=== PATIENT | male | born 1940 | race Caucasian/White ===

== ENCOUNTER 2024-09-11 18:34 | Inpatient (IN) | payer MEDICARE, SELFPAY ==
[2024-09-11 18:37] VITALS: BP 167/80; PULSE 69; RESP 18; TEMP 36.9; O2SAT 96; BMI 32.8
--- NOTE | 2024-09-11 19:01 | EDNOTE_ITS ---
ED General RME/HPI General Chief complaint: Altered Mental Status Stated complaint: ALTERED Time Seen by Provider: 09/11/24 18:59 Arrival date/time: 09/11/24 18:34 CC: Altered mental status HPI called in by healthcare provider mild altered mental status for 2 to 3 weeks. EMS reports stable vital signs around but stated that the patient's living conditions were in disarray and dirty. The patient is disheveled and ill kempt but appears not in any acute distress he has no specific complaints. Informs me his primary care doctor is Dr. Saez, denies fever chills chest pain shortness of breath or difficulty breathing. Anecdotal information from the nurse upon placement from the gurney to a bed the report also states the patient fell x 1 today. Related Data Home Medications ?Medication ?Instructions ?Recorded ?Confirmed finasteride 5 mg tablet (Proscar) 5 mg PO QDAY #0 tabs 07/31/15 09/12/24 metoprolol tartrate 25 mg tablet 25 mg PO 1XD #0 tabs 07/31/15 09/12/24 tamsulosin 0.4 mg capsule (Flomax) 0.8 mg PO BID #0 caps 12/27/23 09/12/24 levothyroxine 112 mcg tablet 112 mcg PO DAILY 09/12/24 09/12/24 Allergies Allergy/AdvReac Type Severity Reaction Status Date / Time No Known Allergies Allergy Verified 09/12/24 06:32 Review of Systems Review of Systems Narrative Review of Systems: GEN: No fever, no chills, no weight loss EYES: No discharge, no visual changes, no pain HEENT: No ear pain, no congestion, no sore throat PULM: No shortness of breath, no cough, no congestion CV: No chest pain, no dyspnea on exertion, no palpitations GI: No nausea, no vomiting, no diarrhea, no pain, no constipation : No frequency, no urgency, no dysuria MUSC/SKEL: No joint pain, no back pain SKIN: No rash PSYCH: No hallucinations, no depression HEME/LYMPH: No easy bleeding or bruising tendencies NEURO: No weakness, no headache Past Medical History Past Medical History CARDIAC: Positive Hypercholesterolemia; Negative Cardiac Disorders, Congestive Heart Failure or Hypertension RESPIRATORY: Positive Asthma and Pneumonia; Negative Chronic Obstructive Pulmonary Disease (COPD) GASTROINTESTINAL: Positive Gastrointestinal Disorders GENITOURINARY: Positive Benign Prostatic Hyperplasia; Negative Renal Disease MUSCULOSKELETAL: Positive Musculoskeletal Disorders ENT: Positive Cataracts and Macular Degeneration ENDOCRINE: Positive Hypothyroidism; Negative Diabetes Mellitus Type 1 or Diabetes Mellitus Type 2 HEMATOLOGIC: Negative Sickle Cell Disease OTHER HISTORY: Positive Falls and Blood Transfusions; Negative Blood Transfusion Reaction or Anesthesia Reactions Family History FAMILY HISTORY: Positive Family Gastrointestinal Problems Surgical History SURGICAL: Positive Vascular Surgery, Eye Surgery, Abdominal Surgery and Bowel Surgery Social History SMOKING STATUS: Former smoker SECOND HAND EXPOSURE: No SUBSTANCE USE: does not use ED Exam Narrative Physical exam: [General: Ill kempt but appears not in any acute distress Head normocephalic HEENT: Eyes pupils are PERRLA EOMs are intact nose no rhinorrhea mouth pink moist membranes uvula is midline swallow symmetrical been all other subsystems of HEENT are within acceptable limits Neck is supple nontender, no JVD no edema Chest equal chest rise nontender to palpation Respiratory: Clear to auscultation no wheezes crackles or rubs CV: Rate rhythm is regular no murmurs rubs or clicks Abdomen is distended secondary to body habitus soft nontender no masses positive bowel sounds all 4 quadrants Back: No CVA tenderness no spinous process tenderness from cervical spine thoracic and lumbar spine Skin: Intact no petechiae rash induration ulceration or crepitus Extremities: Moving all extremity against resistance cap refill less than 2 seconds neurosensory intact. Nonpitting edema to both lower extremities Neuro: Awake alert oriented x2, person and place, Glascow coma 15 no focal deficits] Course Course Course Narrative: Patient has SHEREEN, but also has a bad living circumstances including a dilapidated house. EMS is filed an APS report regarding this. At the time of this dictation patient is pending a CT for a kidney stone that was seen in December 2019 for imaging. Quality Measures VTE prophylaxis Orders Category Date Time Status Patient Condition Routine Admission 09/12/24 01:45 Ordered COVID-19 Screening Questionnaire NOW Care 09/12/24 01:33 Completed Decision to Admit X1 Care 09/12/24 01:33 Completed Miscellaneous Nursing Order NOW Care 09/12/24 02:24 Active Notify provider NEEDED Care 09/12/24 01:45 Active Saline [Insert IV] NOW Care 09/11/24 20:39 Completed Straight [In and Out Catheter] X1 Care 09/11/24 22:45 Completed PT [Referral Physical Therapy] Stat Cons 09/12/24 08:31 Active Referral Physical Therapy Routine Cons 09/12/24 02:19 Active Diet Renal Diet 09/12/[address] abdomen pelvis wo con Stat Exams 09/11/24 22:[address] cervical spine wo con Stat Exams 09/11/24 20:[address] head/brain wo con Stat Exams 09/11/24 20:37 Completed US renal artery study complete Stat Exams 09/12/24 08:53 Ordered B-Type Natriuretic Peptide Stat Lab 09/11/24 19:19 Completed CBC AM DRAW Lab 09/12/24 03:40 Completed CBC Stat Lab 09/11/24 19:19 Completed Comprehensive Metabolic Panel AM DRAW Lab 09/12/24 03:40 Completed Comprehensive Metabolic Panel Stat Lab 09/11/24 19:19 Completed Drug Screen,Urine Stat Lab 09/11/24 23:07 Completed Free T4 (Free Thyroxine) Routine Lab 09/12/24 01:51 Completed LDH (Lactate Dehydrogenase) Stat Lab 09/11/24 19:19 Completed Lactic Acid [Lactate (Lactic Acid)] Stat Lab 09/12/24 03:40 Completed Lipid Panel AM DRAW Lab 09/12/24 03:40 Completed Magnesium AM DRAW Lab 09/12/24 03:40 Completed Magnesium Stat Lab 09/11/24 19:19 Completed Partial Thromboplastin Time Stat Lab 09/11/24 19:19 Completed Prothrombin Time with INR Stat Lab 09/11/24 19:19 Completed TSH [Thyroid Stimulating Hormone] Stat Lab 09/11/24 19:19 Completed Urinalysis Stat Lab 09/11/24 23:07 Completed Acetaminophen Tab [Tylenol Tab] Med 09/12/24 01:45 Active 650 mg PO Q6H PRN Finasteride [Proscar] Med 09/12/24 09:00 Active 5 mg PO QDAY Heparin Inj Med 09/12/24 09:00 Active 5,000 unit SC Q12HR Levothyroxine Sodium [Synthroid] Med 09/12/24 06:00 Active 112 mcg PO ACBR Ondansetron Inj [Zofran Inj] Med 09/12/24 01:50 Active 4 mg IV Q6H PRN Sodium Chloride 0.9% 1000 ml [Ns] 1,000 ml Med 09/12/24 01:45 Active IV 80 mls/hr Sodium Chloride 0.9% 1000 ml [Ns] 1,000 ml Med 09/11/24 20:39 Discontinued IV 999 mls/hr Tamsulosin HCl [Flomax] Med 09/12/24 09:00 Active 0.4 mg PO QDAY Code Status Routine Oth 09/12/24 01:45 Ordered Vital Signs Vital signs: Vital Signs Temperature 98.5 F 09/11/24 18:37 Pulse Rate 69 09/11/24 18:37 Respiratory Rate 18 09/11/24 18:37 Blood Pressure 167/80 H 09/11/24 18:37 Pulse Oximetry (%) 96 09/11/24 18:37 Oxygen Delivery Method Room Air 09/11/24 18:37 [facility] Patient data External records reviewed:: [facility] previous records and EMS form Clinical information provided by:: patient and EMS Social determinants that could affect healthcare access:: none Patient has the following chronic illnesses:: Hypothyroidism 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 bili elevation Interpretation Summary: AKA needs admission for further medical management. There is also problematic as patient was found in a house completely disheveled. APS report was filed by EMS. Patient needs social economist to determine if the patient needs to be placed Medications Medications considered but not ordered:: None Medication administrations:: Medication Administration History Acetaminophen (Acetaminophen 325 Mg Tablet) 650 mg PO Q6H PRN PRN Reason: Pain 1-3 or Fever >100.3 Stop: 10/12/24 01:44 Finasteride (Finasteride 5 Mg Tablet) 5 mg PO QDAY [facility] Stop: 10/12/24 08:59 Heparin Sodium (Porcine) (Heparin Sod Inj 5000 Unit/Ml Vial) 5,000 unit SC Q12HR [facility] Stop: 09/26/24 08:59 Last Admin: 09/12/24 10:37 Dose: 5,000 unit Documented By: EF Co-signed By: DO Sodium Chloride (Ns) 1,000 mls @ 80 mls/hr IV .[id number] ONE Stop: 09/12/24 14:14 Last Admin: 09/12/24 02:17 Dose: 80 mls/hr Documented By: CVL Levothyroxine Sodium (Levothyroxine Sodium 112 Mcg Tablet) 112 mcg PO ACBR [facility] Stop: 10/12/24 05:59 Last Admin: 09/12/24 10:32 Dose: Not Given Documented By: EF Non-Admin Reason: Medication Not Available Ondansetron HCl (Ondansetron Inj 2 Mg/Ml Inj 2 Ml) 4 mg IV Q6H PRN; Protocol PRN Reason: NAUSEA OR VOMITING Stop: 10/12/24 01:49 Tamsulosin HCl (Tamsulosin Hcl 0.4 Mg Capsule) 0.4 mg PO QDAY [facility] Stop: 10/12/24 08:59 Last Admin: 09/12/24 10:37 Dose: 0.4 mg Documented By: EF Discontinued Medications Sodium Chloride (Ns) 1,000 mls @ 999 mls/hr IV .Q1H1M ONE Stop: 09/11/24 21:39 Last Infusion: 09/11/24 22:18 Dose: Infused Documented By: Admin: 09/11/24 20:45 Dose: 999 mls/hr Documented By: CVL None Consultations Consultation(s) initiated? (list below): No Diagnosis Differential Diagnosis ED Complaint MDM: SHEREEN pneumonia altered mental status Most likely diagnosis given after review of the tests above:: SHEREEN deconditioned Admission Indicated Admission indicated?: indicated Explain why admission is indicated or not indicated:: Further medical management Admission Request Was there a request for admission?: No Disposition Plan Disposition Plan: Admit Medical Decision Making Differential Diagnosis Differential Diagnosis: SHEREEN pneumonia altered mental status Lab Data 09/12/24 03:40 09/12/24 03:40 Labs: Lab Results 09/11/24 09/11/24 09/12/24 Range/Units 19:19 23:07 03:40 WBC 9.7 7.0 (3.8-10.6) Thou/mm3 RBC 4.21 L 3.75 L (4.50-5.90) Miln/mm3 Hgb 13.1 L 11.5 L (13.5-16.0) g/dL Hct 38.0 L 34.3 L (41.0-53.0) % MCV 90 92 (80-100) fL MCH 31.1 30.7 (25.0-35.0) pg MCHC 34.5 33.5 (31.0-37.0) g/dl RDW Std Deviation 44.2 H 46.3 H (35.1-43.9) fL Plt Count 178 141 D (140-440) Thou/mm3 Neut % (Auto) 80 68 (37-80) % Lymph % (Auto) 10 16 (10-50) % [place] % (Auto) 9 13 H (0-12) % Eos % (Auto) 0 2 (0-10) % Baso % (Auto) 0 0 (0-2.5) % Neut # (Auto) 7.8 H 4.8 (1.8-7.7) Thou/mm3 Lymph # (Auto) 1.0 1.1 (1.0-4.8) Thou/mm3 [place] # (Auto) 0.9 H 0.9 H (0.0-0.8) Thou/mm3 Eos # (Auto) 0.0 0.2 (0.0-0.5) Thou/mm3 Baso # (Auto) 0.0 0.0 (0.0-0.2) Thou/mm3 Immature Gran # (Auto) 0.03 H 0.02 H (0.00-0.00) Thou/mm3 Absolute Nucleated RBC 0.00 0.00 (0.00-0.00) Thou/mm3 Immature Gran % 0 0 (0-0) % Nucleated RBC % 0 0 (0) /100 WBC PT 11.8 (9.0-12.2) Seconds INR 1.1 (0.9-1.3) APTT 24.6 (22.0-36.0) Seconds Sodium 139 137 (136-145) mMol/L Potassium 4.1 4.1 (3.4-5.1) mMol/L Chloride 105 107 (98-107) mMol/L Carbon Dioxide 25.8 22.2 (20.0-31.0) mMol/L Anion Gap 8 8 (7-16) BUN 39 H 32 H (9-23) mg/dL Creatinine 2.3 H 1.9 H (0.6-1.3) mg/dL Estim Creat Clear Calc 30.6 L 37.0 L (>60) mL/min eGFR 27 L 34 L (60 - ) See Note BUN/Creatinine Ratio 17 17 (12-20) Ratio Glucose 117 H 96 (74-106) mg/dL Calculated Osmolality 287 280 (275-295) Lactic Acid 0.9 (0.4-2.0) mMol/L Calcium 9.5 8.5 (8.3-10.6) mg/dL Corrected Calcium 9.5 8.8 (8.5-10.1) mg/dL Magnesium 2.2 2.1 (1.6-2.6) mg/dL Total Bilirubin 0.7 0.9 (0.3-1.2) mg/dL AST 36 H 52 H (0-34) U/L ALT 22 22 (10-49) U/L Alkaline Phosphatase 74 58 D (46-116) U/L Lactate Dehydrogenase 324 H (120-246) U/L B-Natriuretic Peptide 40 (0-100) pg/mL Total Protein 7.2 6.0 (5.7-8.2) gm/dL Albumin 4.3 3.6 D (3.4-4.8) gm/dL Globulin 2.9 2.4 (2.3-3.5) gm/dL Albumin/Globulin Ratio 1.5 1.5 (1.2-2.2) Triglycerides 70 (30-150) mg/dL Cholesterol 130 L (132-200) mg/dL LDL Cholesterol, Calc 68 (0-130) mg/dL HDL Cholesterol 48 (40-60) mg/dL Cholesterol/HDL Ratio 2.7 L (4.0-6.7) RATIO TSH 5.33 H (0.55-4.78) uIU/mL Free T4 1.38 (0.89-1.76) ng/dL Ur Collection Type Clean Catch Urine Color Yellow (Lt Yel-Yel) Urine Clarity Clear (Clear/Hazy) Urine pH 5.5 (5.0-7.0) Ur Specific [place] 1.028 (1.001-1.035) Urine Protein 1+ A (Neg - Trace) Urine Glucose (UA) Negative (Negative) Urine Ketones Negative (Negative) Urine Blood 2+ A (Negative) Urine Nitrite Negative (Negative) Urine Bilirubin Negative (Negative) Urine Urobilinogen (Auto) Negative (0.0-1.0) mg/dL Ur Leukocyte Esterase Negative (Negative) Urine RBC 1 (0-3) /hpf Urine WBC 2 (0-5) /hpf Ur Squamous Epith Cells 0 (0-5) /hpf Urine Bacteria None (None) Urine Opiates Screen Negative (Negative) Urine Fentanyl Screen Negative (Negative) Ur Barbiturates Screen Negative (Negative) U Amphetamin/Meth Scrn Negative (Negative) U Benzodiazepines Scrn Negative (Negative) U Cocaine Metab Screen Negative (Negative) U Marijuana (THC) Screen Negative (Negative) Discharge Plan Plan Patient Disposition: Admit Acute Care w/in Hospital Disposition Comment: Hospitalist to admit Dr Banks to consult Patient condition on transfer: Stable Problem List Clinical Impression: SHEREEN (acute kidney injury), AMS (altered mental status), History of endovascular stent graft for abdominal aortic aneurysm (AAA)
[2024-09-11 19:29] LABS: Basophils % (Auto) 0 % (0-2.5); Eosinophils % (Auto) 0 % (0-10); Hemoglobin 13.1 g/dL (13.5-16.0); Immature Granulocytes % (Auto) 0 % (0-0); Immature Granulocytes Auto 0.03 Thou/mm3 (0.00-0.00); Lymphocytes % (Auto) 10 % (10-50); Mean Corpuscular HGB Conc 34.5 g/dl (31.0-37.0); Mean Corpuscular Hemoglobin 31.1 pg (25.0-35.0); Mean Corpuscular Volume 90 fL (80-100); Monocytes # (Auto) 0.9 Thou/mm3 (0.0-0.8); Monocytes % (Auto) 9 % (0-12); Neutrophils # (Auto) 7.8 Thou/mm3 (1.8-7.7); Neutrophils % (Auto) 80 % (37-80); Nucleated Red Blood Cell % 0 /100 WBC (0); Platelet Count 178 Thou/mm3 (140-440); RDW Standard Deviation 44.2 fL (35.1-43.9); Red Blood Count 4.21 Miln/mm3 (4.50-5.90); White Blood Count 9.7 Thou/mm3 (3.8-10.6)
[2024-09-11 19:46] LABS: INR 1.1 (0.9-1.3); Partial Thromboplastin Time 24.6 Seconds (22.0-36.0); Prothrombin Time 11.8 Seconds (9.0-12.2)
[2024-09-11 19:50] LABS: Alanine Aminotransferase 22 U/L (10-49); Albumin, Serum 4.3 gm/dL (3.4-4.8); Albumin/Globulin Ratio 1.5 (1.2-2.2); Alkaline Phosphatase 74 U/L (46-116); Anion Gap 8 (7-16); Aspartate Amino Transferase 36 U/L (0-34); BUN/Creatinine Ratio 17 Ratio (12-20); Bilirubin,Total 0.7 mg/dL (0.3-1.2); Blood Urea Nitrogen 39 mg/dL (9-23); Calcium 9.5 mg/dL (8.3-10.6); Calcium (Corrected) 9.5 mg/dL (8.5-10.1); Carbon Dioxide 25.8 mMol/L (20.0-31.0); Chloride 105 mMol/L (98-107); Creatinine (Component) 2.3 mg/dL (0.6-1.3); Estimated Creatinine Clearance 30.6 mL/min (>60); Globulin 2.9 gm/dL (2.3-3.5); Glucose 117 mg/dL (74-106); LDH (Lactate Dehydrogenase) 324 U/L (120-246); Magnesium 2.2 mg/dL (1.6-2.6); Osmolality,Calculated 287 (275-295); Potassium 4.1 mMol/L (3.4-5.1); Sodium 139 mMol/L (136-145); Total Protein 7.2 gm/dL (5.7-8.2); eGFR 27 See Note
[2024-09-11 19:54] LABS: B-Type Natriuretic Peptide 40 pg/mL (0-100)
--- NOTE | 2024-09-11 20:20 | PC.NURSE ---
PT CAME TO ER FROM HOME BY AMBULANCE , PT LIVES ALONE, ORDER SCHEDULE CLERK CALLED AMBULANCE BECAUSE SHE SAID HE IS HAVING AMS CONDITION, EMS REPORTED PT IS GCS 15, NO C/O PAIN.NOT ON RESPIRATORY DISTRESS, PT HAS COLOSTOMY BAG.
--- NOTE | 2024-09-11 20:35 | PC.NURSE ---
PT CARE PROVIDER, POWER OF STONE OPERATOR , CAME TO SEE PT, SHE INFORMED ME THAT PT FELL TODAY AND SHE WAS SHOWING ME A CARD ABOUT PT HAVE CARDIAC PROCEDURE RECENTLY, FELICITA MCDERMOTT MADE AWARE OF INFORMATION.
--- NOTE | 2024-09-11 20:37 | XR_ITS ---
Examination: CT brain head without contrast. 2-D sagittal coronal reconstructions Date and time of exam:September 11, 2024 2149 hrs. Indications: Patient fell today with injury to the head, head pain CTDI: vol (mGy):63 DLP: (mGycm):1350 Technique: Multiple CT axial sections of the brain have been obtained, 5 mm slice thickness. Contrast has not been administered. 2-D sagittal, coronal reconstructions have been obtained Low dose protocols were performed. One or more of the following dose reduction techniques were used; automated exposure control, adjustment of the mA and/or KV according to patient size, use of iterative reconstruction technique. Findings: Patient motion significantly degrades scan image quality Mild ventricular enlargement No mass effect No gross hemorrhage noted Cranial vault grossly intact Impression: Limited study secondary to patient motion No hemorrhage or mass effect noted
--- NOTE | 2024-09-11 20:37 | XR_ITS ---
Examination: CT cervical spine without contrast 2-D sagittal reconstructions 2-D coronal reconstructions 3-D reconstructions. Exam date and time:September 11, 2024 2149 hrs. Indications: Patient fell today with injury to the neck, neck pain CTDI:vol (mGy) 8.44 DLP: (mGycm) 179 Technique: Multiple 2 mm axial sections of the cervical spine have been obtained. The coronal and sagittal reconstructions have been obtained. 3-D reconstructions have been obtained. Low dose protocols were performed. One or more of the following dose reduction techniques were used; automated exposure control, adjustment of the mA and/or KV according to patient size, use of iterative reconstruction technique. Findings: The entire study is severely degraded by patient motion No gross fracture noted Impression: The entire study is severely degraded by patient motion No gross fracture noted Repeat this study as clinically warranted
[2024-09-11] MEDS: SODIUM CHLORIDE 0.9% 1000 ML 1,000 ML 999 ML IV (20:45)
[2024-09-11 21:14] LABS: Thyroid Stimulating Hormone 5.33 uIU/mL (0.55-4.78)
--- NOTE | 2024-09-11 22:12 | XR_ITS ---
Examination: CT abdomen and pelvis without contrast. Coronal 3-D reconstructions. Sagittal 2-D reconstructions. Date and time of exam:September 11, 2024 1044 hrs. Comparison November 09, 2023 Indications: Left flank pain today, history kidney stones CTDI: vol (mGy): 12 DLP: (mGycm): 685 Technique: Axial images of the abdomen have been obtained, 3 mm slice thickness Intravenous contrast material has not been administered. Low dose protocols were performed. One or more of the following dose reduction techniques were used; automated exposure control, adjustment of the mA and/or KV according to patient size, use of iterative reconstruction technique. Findings: Small cyst right lobe liver Contracted gallbladder Spleen not enlarged No pancreatic mass Considerable patient motion obscures scan detail Aorto iliac endoluminal stent with 6.3 cm infrarenal abdominal aortic aneurysm IVC filter No renal or ureteral calculi, no hydronephrosis Left colostomy with herniation of small bowel loops at the colostomy site, the small bowel loops partially incarcerated with dilated small bowel Urinary bladder intact No bladder calculi Transverse prostate dimension 4.3 cm Severe osteopenia with severe osteoporotic compression T11 and mild compression L1 Impression: No renal or ureteral calculi, no hydronephrosis Aorta iliac endoluminal stent with 6.3 cm infrarenal abdominal aortic aneurysm Left colostomy, with herniation of small bowel loops through the colostomy defect, small bowel loops appear partially incarcerated with early small bowel obstruction Consider Gastrografin small bowel series follow-up Impression: Subacute severe compression fracture T11 vertebral body
--- NOTE | 2024-09-11 22:47 | EDNOTE_ITS ---
Emergency Room Addendum <Eun Hopper MD - Last Filed: 09/12/24 05:31> Addendum Narrative: 2300: Care assumed from Hamilton Jason NP. Past medical, surgical, social and family history reviewed. Vitals and home medications reviewed. Results and treatment plan discussed. I will assume the care of the patient at this time and will follow the patient, pending reports, labs and final disposition. 0100: Patient re-examined. Physical exam done by me, patient's abdomen is soft, brown stool coming out of colostomy. He has no abdominal distention. No tenderness. He is answering questions. He is laying down comfortable. 0130: Dr. Muse made aware of the patient?s HPI, PMHx, lab and/or radiology results. Treatment plan was discussed. He states he does not believe there is an obstruction as there is stool coming out of the colostomy, brown in color. He is agreeable to re-consult in the morning. 0133: Resident made aware of the patient?s HPI, PMHx, lab and/or radiology results. Treatment plan was discussed. Will admit for further evaluation and management. Accepts patient for admission. 0310: Power of Wallpaperer for this patient requests the patient be transfered to [facility]. Dr. Torres (Vascular Surgery did his AAA repair Jul 28 @[facility]. Mr. 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 Patient's labs significant for acute kidney injury. Patient was given 1 L of fluids in the ED. ED consulted internal medicine team for recommendation on further management. Patient would benefit from admission acute kidney injury and possible placement due to patient's gradual deterioration. Patient lives alone at home, and was found unkept and disheveled. Prior to possible admission, spoke with patient's POA, Victoria Hayes, , and felt comfortable about reaching out to patient's vascular surgeon at [facility], Dr. Lizett Huang prior to admission in case patient needs transfer. Tried reaching Dr. Huang, vascular surgeon at [phone], however currently not on-call, and unable to reach any other provider at this time. Victoria agreed to reach out provider herself around 7 AM prior to last admission to our hospital. Updated the current course of plan to Dr. Hopper, ED physician, and agreed. Currently, patient is in the ED for now. CT abdomen and pelvis without contrast. Coronal 3-D reconstructions. Sagittal 2-D reconstructions. 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 - Last Filed: 09/12/24 05:16> Addendum Narrative: 2300: Care assumed from Hamilton Jason NP. Past medical, surgical, social and family history reviewed. Vitals and home medications reviewed. Results and treatment plan discussed. I will assume the care of the patient at this time and will follow the patient, pending reports, labs and final disposition. 0100: Patient re-examined. Physical exam done by me, patient's abdomen is soft, brown stool coming out of colostomy. He has no abdominal distention. No tenderness. He is answering questions. He is laying down comfortable. 0130: Dr. Muse made aware of the patient?s HPI, PMHx, lab and/or radiology results. Treatment plan was discussed. He states he does not believe there is an obstruction as there is stool coming out of the colostomy, brown in color. He is agreeable to re-consult in the morning. 0133: Resident made aware of the patient?s HPI, PMHx, lab and/or radiology results. Treatment plan was discussed. Will admit for further evaluation and management. Accepts patient for admission. 0310: Power of Wallpaperer for this patient requests the patient be transfered to [facility]. Dr. Torres (Vascular Surgery did his AAA repair Jul 28 @[facility]. 0600: Care signed out to oncoming day shift provider. Past medical, surgical, social and family history reviewed. Vitals and home medications reviewed. Results and treatment plan discussed. They will assume the care of the patient at this time and will follow the patient, pending possible transfer to [facility]. Mr. Palencia is an 84-year-old male with past medical history significant for hypothyroidism, BPH, (cancer s/p resection and ileostomy, CKD, abdominal aortic aneurysm status post stent in July at [facility] who presented to the ED today with altered mental status. Patient's labs significant for acute kidney injury. Patient was given 1 L of fluids in the ED. ED consulted internal medicine team for recommendation on further management. Patient would benefit from admission acute kidney injury and possible placement due to patient's gradual deterioration. Patient lives alone at home, and was found unkept and disheveled. Prior to possible admission, spoke with patient's POA, Victoria Freddy, , and felt comfortable about reaching out to patient's vascular surgeon at [facility], Dr. Lizett Huang prior to admission in case patient needs transfer. Tried reaching Dr. Huang, vascular surgeon at [phone], however currently not on-call, and unable to reach any other provider at this time. Victoria agreed to reach out provider herself around 7 AM prior to last admission to our hospital. Updated the current course of plan to Dr. Hopper, ED physician, and agreed. Currently, patient is in the ED for now. CT abdomen and pelvis without contrast. Coronal 3-D reconstructions. Sagittal 2-D reconstructions. 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 Scribe Attestation: I, Rubén Watts, am scribing for and in the presence of Dr. Chavarria. Provider Notation: Although this document has been carefully reviewed, there may still be some phonetic and other typographical errors. These errors are purely grammatical due to imperfections in the software program and should not be construed in any way to compromise the substance of the patient's medical care during this visit.
[2024-09-11 23:23] LABS: Collection Type, Urine Clean Catch; Squamous Epithelial Cell,Urine 0 /hpf (0-5)
[2024-09-11 23:29] LABS: Bilirubin,Urine Negative (Negative); Blood,Urine 2+ (Negative); Clarity,Urine Clear (Clear/Hazy); Color,Urine Yellow (Lt Yel-Yel); Glucose, Urine Negative (Negative); Ketones,Urine Negative (Negative); Leukocyte Esterase,Urine Negative (Negative); Nitrite,Urine Negative (Negative); PH,Urine 5.5 (5.0-7.0); Protein,Urine 1+ (Neg - Trace); RBC,Urine 1 /hpf (0-3); Specific Gravity,Urine 1.028 (1.001-1.035); Urobilinogen,Urine Negative mg/dL (0.0-1.0); WBC,Urine 2 /hpf (0-5)
[2024-09-11 23:36] LABS: Amphetamine/Methamp Scrn,U Negative (Negative); Barbiturate Screen,Urine Negative (Negative); Benzodiazepines Screen,Urine Negative (Negative); Benzoylecgonine Screen, Ur Negative (Negative); Fentanyl Screen,Urine Negative (Negative); Opiate Screen,Urine Negative (Negative); THC Screen,Urine Negative (Negative)
[2024-09-11 23:50] VITALS: BP 121/57; PULSE 56; RESP 16; TEMP 37.1; O2SAT 96
[2024-09-12] VITALS (11 sets, daily range): BP systolic 113–147; BP diastolic 58–85; PULSE 41–60; RESP 14–18; TEMP 36.2–37.2; O2SAT 94–98; BMI 30.2; BMI 32.8
--- NOTE | 2024-09-12 02:08 | PD.RESHP ---
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 Per EMS reports, the patient had stable vital signs but living conditions were suboptimal and he was unkept and disheveled but was in no acute distress and had no complaints.. He denied any fever, chills, chest pain, shortness of breath, palpitation, abdominal pain, dysuria. Per chart review, patient had an obstructive stone and December and was seen by Dr. Pacheco who recommended PCNL and stone fragmentation. ED course: In the ED, the patient was afebrile and normotensive, saturating 95% on room air. Labs showed WBC 9.7 Hgb 13.1 PLT 178 NA 130 9K4.1 CL 105 bicarb 25.8 BUN 39 creatinine 2.3 with a GFR 27 glucose 117 TSH 5.33. UA showed 1+ protein and 2+ blood, otherwise unremarkable and U-Tox was negative. Head CT was done which was negative and CT abdomen was done which showed no ureteral/renal calculi but showed small bowel loops that appear partially incarcerated. The patient is given 1 L of fluid in the ED and a APS was contacted for possible placement and is being admitted for management of SHEREEN on CKD. Review of Systems Review of Systems Narrative Review of Systems: GENERAL: Denies fevers/chills or diaphoresis. HEENT: Denies headache or visual/hearing changes. Denies nasal discharge. NEURO: Denies unusual weakness or difficulty speaking. CARDIO: Denies chest pain or palpitations. PULM: Denies SOB, coughing, or wheezing. GI: Denies abdominal pain, N/V/C/D/reflux/gas, bright red blood per rectum or melena. Reports having BMs. URO: Denies burning/itching/pain/urinary changes. MSK/EXT/SKIN: Denies joint/skeletal/muscle pain, issues/changes in upper or lower extremities, itchiness, or superficial pain. PSYCH: Cooperative, pleasant mood & affect. 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 Eyes open, symmetrical, & clear CARDIO: No chest pain on palpation. Heart RRR, no obvious murmurs PULM: No noted coughing/dyspnea. Lungs CTA B/L GI: Abdomen soft, nondistended, palpable bowel loops, no pain on palpation. Colostomy bag inspected, good output, no leak. SKIN/MSK/EXT: Bilateral pitting edema 2+ Results: Labs 09/11/24 19:19 09/11/24 19:19 Labs: Short CBC 09/11/24 Range/Units 19:19 WBC 9.7 (3.8-10.6) Thou/mm3 Hgb 13.1 L (13.5-16.0) g/dL Hct 38.0 L (41.0-53.0) % Plt Count 178 (140-440) Thou/mm3 BMP 09/11/24 19:19 Sodium 139 Potassium 4.1 Chloride 105 Carbon Dioxide 25.8 BUN 39 H Creatinine 2.3 H Glucose 117 H Calcium 9.5 Liver Function 09/11/24 Range/Units 19:19 Total Bilirubin 0.7 (0.3-1.2) mg/dL AST 36 H (0-34) U/L ALT 22 (10-49) U/L Alkaline Phosphatase 74 (46-116) U/L Albumin 4.3 (3.4-4.8) gm/dL Urine 09/11/24 Range/Units 23:07 Urine Color Yellow (Lt Yel-Yel) Urine Clarity Clear (Clear/Hazy) Urine pH 5.5 (5.0-7.0) Ur Specific [place] 1.028 (1.001-1.035) Urine Protein 1+ A (Neg - Trace) Urine Glucose (UA) Negative (Negative) Quality Measures Quality Measures VTE prophylaxis Advance care planning discussed with:: patient Medications Home Medications and Allergies Home Medications ?Medication ?Instructions ?Recorded ?Confirmed ?Type Levothyroxine * (SYNTHROID *) 112 mcg PO QDAY #0 tabs 07/31/15 12/27/23 History finasteride 5 mg tablet (Proscar) 5 mg PO QDAY #0 tabs 07/31/15 12/27/23 History metoprolol tartrate 25 mg tablet 25 mg PO 1XD #0 tabs 07/31/15 12/27/23 History tamsulosin 0.4 mg capsule (Flomax) 0.8 mg PO QDAY #0 caps 12/27/23 12/27/23 History Allergies Allergy/AdvReac Type Severity Reaction Status Date / Time No Known Allergies Allergy Unverified 12/27/23 13:34 Visit Medications Acetaminophen (Acetaminophen 325 Mg Tablet) 650 mg PO Q6H PRN PRN Reason: Pain 1-3 or Fever >100.3 Stop: 10/12/24 01:44 Heparin Sodium (Porcine) (Heparin Sod Inj 5000 Unit/Ml Vial) 5,000 unit SC Q12HR RAUDEL Stop: 09/26/24 08:59 Sodium Chloride (Ns) 1,000 mls @ 80 mls/hr IV .[id number] ONE Stop: 09/12/24 14:14 Ondansetron HCl (Ondansetron Inj 2 Mg/Ml Inj 2 Ml) 4 mg IV Q6H PRN; Protocol PRN Reason: NAUSEA OR VOMITING Stop: 10/12/24 01:49 Discontinued Medications Sodium Chloride (Ns) 1,000 mls @ 999 mls/hr IV .[id number] ONE Stop: 09/11/24 21:39 Last Infusion: 09/11/24 22:18 Dose: Infused Assessment & Plan Assessment Summary: The patient is an 84-year-old male with a past medical history of hypothyroidism, BPH, 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 #Acute kidney injury #Acute on chronic kidney disease The patient was Biba to the ED when his neighbors was said to have noticed that he was altered for the past 2 to 3 weeks and electively demonstrated today, concerned that he might fall. Patient denied any complaints-fever, chills, abdominal pain, nausea, vomiting, diarrhea, chest pain, cough or palpitations Admitting labs in the ED showed BUN 39 creatinine 2.3, baseline about 1.6-1.8 eGFR- 27 He does mention that he has had decreased oral intake over the past couple weeks. In the ED, he received 1L bous of NS Plan: -Maintenance fluid IV NS @ 80cc/hr -Avoid nephrotoxic medications -Renally dose all medications -Continue monitoring CMP #History of unspecified intestinal cancer (possible colon) #S/P resection and ileostomy The patient has a history of cancer status post resection and ileostomy and currently has a colostomy bag. On admission, he denies abdominal pain, nausea or vomiting. Examination of colostomy bag shows good output, no leakage. CT abdomen showed some small bowel loops that appear partially incarcerated, but patient is asymptomatic. Gen Surgeon Dr Muse was contacted, no current interventions necessary. Plan: -Stable condition, continue to monitor -Consult surgery if patient becomes symtomatic #Hx of hypothyrodisim The patient has a history of hypothyroidism and is on levothyroxine 112mcg TSH on admission- 5.33 Plan: -Free T4 -Continue levothyroxine #History of BPH Patient is on finasteride 5mg and tamsulosin 0.4mg daily Plan: -Continue home meds Health maintenance: Dispo: MedSurg, requiring physical therapy and social services coordinator Diet: Renal DVT: SC Heparin Alvarez: None Lines: Peripheral Med Rec: Pending, f/u PT: Ordered Code: Full Case was discussed with attending physician, Dr Osmar Osorio MD PGY-1
[2024-09-12] MEDS: SODIUM CHLORIDE 0.9% 1000 ML 1,000 ML 80 ML IV (02:17)
[2024-09-12 02:53] LABS: Free T4 (Free Thyroxine) 1.38 ng/dL (0.89-1.76)
--- NOTE | 2024-09-12 03:37 | PC.NURSE ---
0324 CONTACTED [facility] AT [phone] SPOKE WITH [facility] PT PKT FAXED TO [phone]. PT REFERENCE NUMBER [id number]. PER RAUL [facility] RECEIVED CALL FROM KAREN STATING SHE WANTED DR RICH TO ACCEPT PT TO [facility]. PER [facility] HE EXPLAINED TO KAREN THAT IF PT WAS BEING ADMITTED TO [facility] THAN TRANSFERRING PT WOULD BE A LATERAL TRANSFER AND PT COULD BE LIABLE FOR TRANSPORTATION COSTS. DR STANLEY IS NOT PENSION ADMINISTRATOR AT THIS TIME.
[2024-09-12 03:44] LABS: Lactate (Lactic Acid) 0.9 mMol/L (0.4-2.0)
[2024-09-12 03:45] LABS: Basophils % (Auto) 0 % (0-2.5); Eosinophils # (Auto) 0.2 Thou/mm3 (0.0-0.5); Eosinophils % (Auto) 2 % (0-10); Hematocrit 34.3 % (41.0-53.0); Hemoglobin 11.5 g/dL (13.5-16.0); Immature Granulocytes % (Auto) 0 % (0-0); Immature Granulocytes Auto 0.02 Thou/mm3 (0.00-0.00); Lymphocytes # (Auto) 1.1 Thou/mm3 (1.0-4.8); Lymphocytes % (Auto) 16 % (10-50); Mean Corpuscular HGB Conc 33.5 g/dl (31.0-37.0); Mean Corpuscular Hemoglobin 30.7 pg (25.0-35.0); Mean Corpuscular Volume 92 fL (80-100); Monocytes # (Auto) 0.9 Thou/mm3 (0.0-0.8); Monocytes % (Auto) 13 % (0-12); Neutrophils # (Auto) 4.8 Thou/mm3 (1.8-7.7); Neutrophils % (Auto) 68 % (37-80); Nucleated Red Blood Cell % 0 /100 WBC (0); Platelet Count 141 Thou/mm3 (140-440); RDW Standard Deviation 46.3 fL (35.1-43.9); Red Blood Count 3.75 Miln/mm3 (4.50-5.90)
--- NOTE | 2024-09-12 03:48 | ESCONSULT_ITS ---
<Statement entered by Alina Briones MD - 09/12/24 04:45> Mr. Palencia is an 84-year-old male with past medical history significant for hypothyroidism, BPH, (cancer s/p resection and ileostomy, CKD, abdominal aortic aneurysm status post stent in July at [facility] who presented to the ED today with altered mental status. Patient's labs significant for acute kidney injury. Patient was given 1 L of fluids in the ED. ED consulted internal medicine team for recommendation on further management. Patient would benefit from admission acute kidney injury and possible placement due to patient's gradual deterioration. Patient lives alone at home, and was found unkept and disheveled. Prior to possible admission, spoke with patient's POA, Victoriajonas Hayes, , and felt comfortable about reaching out to patient's vascular surgeon at [facility], Dr. Lizett Huang prior to admission in case patient needs transfer. Tried reaching Dr. Huang, vascular surgeon at [phone], however currently not on-call, and unable to reach any other provider at this time. Victoria agreed to reach out provider herself around 7 AM prior to last admission to our hospital. Updated the current course of plan to Dr. Hopper, ED physician, and agreed. Currently, patient is in the ED for now. I discussed with and supervised the internal control analyst physician who took care of this patient. I personally saw and examined the patient and discussed the assessment and plan with the entire medicine team, including my attending , I agree with most of the assessment and plan as documented below Alina Briones M.D. 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 Per EMS reports, the patient had stable vital signs but living conditions were suboptimal and he was unkept and disheveled but was in no acute distress and had no complaints.. He denied any fever, chills, chest pain, shortness of breath, palpitation, abdominal pain, dysuria. Per chart review, patient had an obstructive stone and December and was seen by Dr. Pacheco who recommended PCNL and stone fragmentation. ED course: In the ED, the patient was afebrile and normotensive, saturating 95% on room air. Labs showed WBC 9.7 Hgb 13.1 PLT 178 NA 130 9K4.1 CL 105 bicarb 25.8 BUN 39 creatinine 2.3 with a GFR 27 glucose 117 TSH 5.33. UA showed 1+ protein and 2+ blood, otherwise unremarkable and U-Tox was negative. Head CT was done which was negative and CT abdomen was done which showed no ureteral/renal calculi but showed small bowel loops that appear partially incarcerated. The patient is given 1 L of fluid in the ED and a APS was contacted for possible placement and internal medicine team consulted for management of SHEREEN on CKD. cc:: cc: Review of Systems Review of Systems Narrative Review of Systems: GENERAL: Denies fevers/chills or diaphoresis. HEENT: Denies headache or visual/hearing changes. Denies nasal discharge. NEURO: Denies unusual weakness or difficulty speaking. CARDIO: Denies chest pain or palpitations. PULM: Denies SOB, coughing, or wheezing. GI: Denies abdominal pain, N/V/C/D/reflux/gas, bright red blood per rectum or melena. Reports having BMs. URO: Denies burning/itching/pain/urinary changes. MSK/EXT/SKIN: Denies joint/skeletal/muscle pain, issues/changes in upper or lower extremities, itchiness, or superficial pain. PSYCH: Cooperative, pleasant mood & affect. Exam Vital Signs Temp Pulse Resp BP Pulse Ox O2 Del Method 98.9 F 52 L 17 113/70 97 Room Air 09/12/24 02:21 09/12/24 02:21 09/12/24 02:21 09/12/24 02:21 09/12/24 02:21 09/12/24 02:21 Narrative Exam GENERAL: AAOX3, drowsy but not confused NEURO: LOCOMOTIVE MECHANIC APPRENTICE grossly intact, moves extremities x4 HEENT: Moist mucosa. Eyes open, symmetrical, & clear CARDIO: No chest pain on palpation. Heart RRR, no obvious murmurs PULM: No noted coughing/dyspnea. Lungs CTA B/L GI: Abdomen soft, nondistended, palpable bowel loops, no pain on palpation. Colostomy bag inspected, good output, no leak. SKIN/MSK/EXT: Bilateral pitting edema 2+ Results Labs 09/12/24 03:40 09/12/24 03:40 Labs: Short CBC 09/11/24 09/12/24 Range/Units 19:19 03:40 WBC 9.7 7.0 (3.8-10.6) Thou/mm3 Hgb 13.1 L 11.5 L (13.5-16.0) g/dL Hct 38.0 L 34.3 L (41.0-53.0) % Plt Count 178 141 D (140-440) Thou/mm3 BMP 09/11/24 19:19 Sodium 139 Potassium 4.1 Chloride 105 Carbon Dioxide 25.8 BUN 39 H Creatinine 2.3 H Glucose 117 H Calcium 9.5 Liver Function 09/11/24 Range/Units 19:19 Total Bilirubin 0.7 (0.3-1.2) mg/dL AST 36 H (0-34) U/L ALT 22 (10-49) U/L Alkaline Phosphatase 74 (46-116) U/L Albumin 4.3 (3.4-4.8) gm/dL Urine 09/11/24 Range/Units 23:07 Urine Color Yellow (Lt Yel-Yel) Urine Clarity Clear (Clear/Hazy) Urine pH 5.5 (5.0-7.0) Ur Specific [place] 1.028 (1.001-1.035) Urine Protein 1+ A (Neg - Trace) Urine Glucose (UA) Negative (Negative) Quality Measures Quality Measures VTE prophylaxis Advance care planning discussed with:: patient and other Medications Home Medications and Allergies Home Medications ?Medication ?Instructions ?Recorded ?Confirmed ?Type finasteride 5 mg tablet (Proscar) 5 mg PO QDAY #0 tabs 07/31/15 09/12/24 History metoprolol tartrate 25 mg tablet 25 mg PO 1XD #0 tabs 07/31/15 09/12/24 History tamsulosin 0.4 mg capsule (Flomax) 0.8 mg PO BID #0 caps 12/27/23 09/12/24 History levothyroxine 112 mcg tablet 112 mcg PO DAILY 09/12/24 09/12/24 History Allergies Allergy/AdvReac Type Severity Reaction Status Date / Time No Known Allergies Allergy Verified 09/12/24 06:32 Visit Medications Acetaminophen (Acetaminophen 325 Mg Tablet) 650 mg PO Q6H PRN PRN Reason: Pain 1-3 or Fever >100.3 Stop: 10/12/24 01:44 Finasteride (Finasteride 5 Mg Tablet) 5 mg PO QDAY [facility] Stop: 10/12/24 08:59 Heparin Sodium (Porcine) (Heparin Sod Inj 5000 Unit/Ml Vial) 5,000 unit SC Q12HR RAUDEL Stop: 09/26/24 08:59 Sodium Chloride (Ns) 1,000 mls @ 80 mls/hr IV .[id number] ONE Stop: 09/12/24 14:14 Last Admin: 09/12/24 02:17 Dose: 80 mls/hr Levothyroxine Sodium (Levothyroxine Sodium 112 Mcg Tablet) 112 mcg PO ACBR [facility] Stop: 10/12/24 05:59 Ondansetron HCl (Ondansetron Inj 2 Mg/Ml Inj 2 Ml) 4 mg IV Q6H PRN; Protocol PRN Reason: NAUSEA OR VOMITING Stop: 10/12/24 01:49 Tamsulosin HCl (Tamsulosin Hcl 0.4 Mg Capsule) 0.4 mg PO QDAY [facility] Stop: 10/12/24 08:59 Discontinued Medications Sodium Chloride (Ns) 1,000 mls @ 999 mls/hr IV .Q1H1M ONE Stop: 09/11/24 21:39 Last Infusion: 09/11/24 22:18 Dose: Infused Assessment & Plan Plan Summary: The patient is an 84-year-old male with a past medical history of hypothyroidism, BPH, 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 #Acute kidney injury #Acute on chronic kidney disease The patient was Biba to the ED when his neighbors was said to have noticed that he was altered for the past 2 to 3 weeks and electively demonstrated today, concerned that he might fall. Patient denied any complaints-fever, chills, abdominal pain, nausea, vomiting, diarrhea, chest pain, cough or palpitations Admitting labs in the ED showed BUN 39 creatinine 2.3, baseline about 1.6-1.8 eGFR- 27 He does mention that he has had decreased oral intake over the past couple weeks. In the ED, he received 1L bous of NS Plan: -Maintenance fluid IV NS @ 80cc/hr -Avoid nephrotoxic medications -Renally dose all medications -Continue monitoring CMP #History of unspecified intestinal cancer (possible colon) #S/P resection and ileostomy The patient has a history of cancer status post resection and ileostomy and currently has a colostomy bag. On admission, he denies abdominal pain, nausea or vomiting. Examination of colostomy bag shows good output, no leakage. CT abdomen showed some small bowel loops that appear partially incarcerated, but patient is asymptomatic. Gen Surgeon Dr Muse was contacted, no current interventions necessary. Plan: -Stable condition, continue to monitor -Consult surgery if patient becomes symtomatic #Hx of abdominal aorta aneurysm s/p stent The patient has a history of infrarenal abdominal aorta aneurysm and has an endoluminal stent CTAP shows stable aneurysm Plan: -No current intervention, stable #Hx of hypothyrodism The patient has a history of hypothyroidism and is on levothyroxine 112mcg TSH on admission- 5.33 Plan: -Free T4 -Continue levothyroxine #History of BPH Patient is on finasteride 5mg and tamsulosin 0.4mg daily Plan: -Continue home meds Health maintenance: Dispo: Pending admission following POA approval Diet: Renal DVT: SC Heparin Alvarez: None Lines: Peripheral Med Rec: Pending, f/u PT: Ordered Code: Full Case was discussed with senior resident Dr Briones PGY-2 and attending physician, Dr Osmar Osorio MD PGY-1 Attending Provider Attestation/Addendum I discussed with and supervised the resident physician who took care of this patient. I agree with the assessment and plan as above. 84-year-old male patient with history of bowel cancer, BPH, abdominal aortic aneurysm status post endovascular graft in July. The patient was brought in because of altered mentation. Patient was noted to have elevated BUN and creatinine. He was given IV fluids for SHEREEN. Of note he also is bradycardic. He takes metoprolol at home. Metoprolol will be held temporarily and until further evaluation. The patient is not hypotensive. There is no report of fall or head trauma patient is waiting for possible transfer to [facility]. Will continue to monitor in ER. Discussed plan with housestaff
[2024-09-12 04:16] LABS: Alanine Aminotransferase 22 U/L (10-49); Albumin, Serum 3.6 gm/dL (3.4-4.8); Albumin/Globulin Ratio 1.5 (1.2-2.2); Alkaline Phosphatase 58 U/L (46-116); Anion Gap 8 (7-16); Aspartate Amino Transferase 52 U/L (0-34); BUN/Creatinine Ratio 17 Ratio (12-20); Bilirubin,Total 0.9 mg/dL (0.3-1.2); Blood Urea Nitrogen 32 mg/dL (9-23); Calcium 8.5 mg/dL (8.3-10.6); Calcium (Corrected) 8.8 mg/dL (8.5-10.1); Carbon Dioxide 22.2 mMol/L (20.0-31.0); Cardiac Risk Estimate 2.7 RATIO (4.0-6.7); Chloride 107 mMol/L (98-107); Cholesterol 130 mg/dL (132-200); Creatinine (Component) 1.9 mg/dL (0.6-1.3); Globulin 2.4 gm/dL (2.3-3.5); Glucose 96 mg/dL (74-106); HDL Cholesterol 48 mg/dL (40-60); LDL Cholesterol,Calculated 68 mg/dL (0-130); Magnesium 2.1 mg/dL (1.6-2.6); Osmolality,Calculated 280 (275-295); Potassium 4.1 mMol/L (3.4-5.1); Sodium 137 mMol/L (136-145); Triglycerides 70 mg/dL (30-150); eGFR 34 See Note
--- NOTE | 2024-09-12 07:18 | PD.EDADDENDU ---
Emergency Room Addendum <Lucretia Tiwari - Last Filed: 09/12/24 08:42> Addendum Narrative: 0600: Care assumed from Dr. Hopper, the previous shift emergency physician. Past medical, surgical, social and family history reviewed. Vitals and home medications reviewed. I will assume the care of the patient at this time, pending possible transfer. Please refer to the emergency department record for history and examination from initial visit.? Nursing notes reviewed by me. Vital signs reviewed by me. [facility] records reviewed by me. 0800: I had a long discussion with the patient. 0815: I had a long 20 minute discussion with the patients power of director product development and our manager social work Nikki. 0835: I spoke with Dr. Banks. Discussed patients PMHx, HPI, ED course, exam findings, labs, and radiology results. She agrees to consult. 0840: I spoke with resident Dr. Diez working with Dr. Christina. Discussed patients PMHx, HPI, ED course, exam findings, labs, and radiology results. The hospitalist agree to accept the patient for admission. jmk>>>>>>>>>> patient is a 84-year-old gentleman who was signed out to me at 0600 hrs. as some with altered mental status who is got worsening BUN/creatinine and is postop 3 to 4 weeks from a stent for an aortic aneurysm in the [place] area. Patient is having no abdominal pain. Evidently is not been drinking well according to a call to the power of director product development Victoria as documented above. At 0800 hrs. the patient is alert awake he states he has no concerns and that he has no problems staying at this facility although evidently had some issues with his previous primary care doctor is now transferred to Dr. Loza. This patient was to be admitted by the primary care doctor but the power of director product development called up stating that she wanted the patient transferred back to the hospital did the surgery since there was some worsening of the renal function. Noted after IV fluids the creatinine and BUN have slightly improved. I am presuming they will continue to prove. Patient has no abdominal pain he has no evidence of vascular compromise in his lower extremities. He has no fever he does not appear to be septic Note the urine specific gravity is slightly on the dry side. At this time I recontacted the primary care doctor who is Dr. Banks and will admit the patient for further hydration and may require placement as patient has some issues with caring for himself for the power of director product development Victoria note I spent approximately 45 minutes on this patient talking with manager social the arnel of director product development and Dr. banks. Noticed labs were reviewed scan reports with no acute finding noted. <Jaspreet Harris MD - Last Filed: 09/12/24 08:44> Addendum Narrative: 0600: Care assumed from Dr. Hopper, the previous shift emergency physician. Past medical, surgical, social and family history reviewed. Vitals and home medications reviewed. I will assume the care of the patient at this time, pending possible transfer. Please refer to the emergency department record for history and examination from initial visit.? Nursing notes reviewed by me. Vital signs reviewed by me. [facility] records reviewed by me. 0800: I had a long discussion with the patient. 0815: I had a long 20 minute discussion with the patients power of director product development and our manager social work Nikki. 0835: I spoke with Dr. Banks. Discussed patients PMHx, HPI, ED course, exam findings, labs, and radiology results. She agrees to consult. 0840: I spoke with resident Dr. Diez working with Dr. Christina. Discussed patients PMHx, HPI, ED course, exam findings, labs, and radiology results. The hospitalist agree to accept the patient for admission. jmk>>>>>>>>>> patient is a 84-year-old gentleman who was signed out to me at 0600 hrs. as some with altered mental status who is got worsening BUN/creatinine and is postop 3 to 4 weeks from a stent for an aortic aneurysm in the [place] area. Patient is having no abdominal pain. Evidently is not been drinking well according to a call to the power of director product development Lori as documented above. At 0800 hrs. the patient is alert awake he states he has no concerns and that he has no problems staying at this facility although evidently had some issues with his previous primary care doctor is now transferred to Dr. Loza. This patient was to be admitted by the primary care doctor but the power of director product development called up stating that she wanted the patient transferred back to the hospital did the surgery since there was some worsening of the renal function. Noted after IV fluids the creatinine and BUN have slightly improved. I am presuming they will continue to prove. Patient has no abdominal pain he has no evidence of vascular compromise in his lower extremities. He has no fever he does not appear to be septic Note the urine specific gravity is slightly on the dry side. Initially this patient was admitted to the resident service last night but that was canceled and then I was informed that the patient's new doctor might be Dr Banks 0840 hrs. I recontacted the primary care doctor who is Dr. Banks who stated she will consult and the resident was recalled Dr. Diez and they will admit the patient for further hydration and may require placement as patient has some issues with caring for himself for the power of director product development Victoria note I spent approximately 45 minutes on this patient talking with manager social the power of director product development and Dr. banks. Noticed labs were reviewed scan reports with no acute finding noted.
--- NOTE | 2024-09-12 08:03 | PC.CC ---
Yecenia ABDUL was consulted by KARTHIK Forte regarding patient's POA Victoria Bragar wanting patient to be transferred to [facility]. ASW and RN made contact with patient introduced self, role, and situation. Patient presented as alert and oriented to self, location, and situation. Patient was made aware that a medical transfer is not needed at this time and if he were transferred it would be a cost out of pocket. Patient stated he is okay with being admitted to [facility]. ASW made contact with Victoria Hayes who is on the phone with patient's medical treatment and requested a call back.
--- NOTE | 2024-09-12 08:21 | PC.CC ---
Yecenia ABDUL and Dr. Harris made contact with KAREN Hayes and informed her that the patient can be medically admitted which she agreed to. She would like for the patient to go to SNF upon being discharge.
--- NOTE | 2024-09-12 08:47 | PC.CM ---
0192 charge nurse informed me that transfer is cancelled and pt. is being admitted. Charge nurse also informed me that she is also warehouse distribution specialist with [facility] to inform that transfer is canceled. 0514 spoke to charge nurse pt might need possible transfer. It the pt friend/power of [place] attorney requesting the pt to be transferred to [facility] where pt had AAA done last month. Per charge nurse, [facility] was contacted by web manager.
--- NOTE | 2024-09-12 08:50 | PC.CC ---
Patient is a 84 year-old male who presented to the hospital for AMS ASWYecenia made [id number] contact with patient. ASW introduced self, role, and reason for visit. Patient appeared alert and oriented to self, location, and situation. Patient provided consent to make contact with Victoria for further information. Patient was pleasant and engaged in initial assessment. ASW, made telephone contact with KAREN Kessler who confirmed patient's demographics and reports he lives alone. Victoria and patient reports he uses a walker and canes to ambulate. Patient is needs assistance with completing ADLs. Victoria lives 7 miles away and helps him as much as she can with completing his ADLs. Patient is currently receiving care from Dr. Lemus and uses [facility] pharmacy on [address] for prescription medications. Victoria stated that patient is no longer able to care for himself and will need assistance with placing patient at a [facility] upon discharge. director of food and beverage services to follow-up with discharge needs.
--- NOTE | 2024-09-12 08:53 | XR_ITS ---
Examination: Renal sonogram Renal arterial Doppler sonographic evaluation Exam date and time: September 12, 2024 1128 hours INDICATIONS: Clinical diagnosis renal artery stenosis hypertension TECHNIQUE AND FINDINGS: Multiple sonographic images of the kidneys Doppler spectral analysis, assessment peak systolic arterial flow is, calculation resistive indices and renal aortic ratios Right kidney 11.4 x 5.9 x 6.4 cm Left kidney 10.7 x 5.0 x 5.3 cm No elevation peak systolic velocities No significant elevation resistive indices Normal renal aortic ratios IMPRESSION: No Doppler sonographic findings of renal artery stenosis
--- NOTE | 2024-09-12 09:26 | PD.RESCONSUL ---
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 Patient has been living at home along. ED course: Blood pressure was 167/80, heart rate 69, afebrile, saturating well on room air. Labs showed WBC 9.7, hemoglobin 13.1, hematocrit 38, sodium 139, potassium 4.1, chloride 105, bicarb 25.8, BUN 39, creatinine 2.3, EGFR 27, glucose 117, LDH 324. In June 2024 BUN was 15, creatinine 1.3, EGFR 54. UA and U tox were unremarkable. Head CT was limited study, negative for acute stroke or fractures, cervical CT Limited study due to patient's motion, no gross fracture. Abdominal pelvic CT showed aortoiliac endoluminal stent with 6.3 cm infrarenal abdominal aortic aneurysm, subacute severe fracture of T11 vertebral body, small bowel loops partially incarcerated with early small bowel obstruction. Patient was started on fluids, received 1 L of normal saline and receives maintenance fluid at 80 mL/h. POA requested patient to be transferred back to [facility] hospital where he did his aortic aneurysm surgery, transfer is not accepted at the moment. Renal Doppler was ordered to assess kidney vessels. Ice Skating Teacher Dr. Banks was consulted for SHEREEN treatment and management. 09/12/2024: Patient seen and examined by the bedside in the ED. He reports feeling short of breath, saturates well on room air, no tachypnea, no orthopnea. He is AAOx3, reports feeling short of breath, denies headache, chest pain, chest pressure, abdominal pain, weakness, vision changes. He denies smoking and alcohol use. Blood pressure 122/61. Labs showed WBC 7, hemoglobin 11.5, hematocrit 34.3, platelets 141. Sodium 137, potassium 4.1, carbon dioxide 22.2, BUN 32, creatinine 1.9, EGFR 34, AST 52, ALT 22. Hemoglobin decreased together with hematocrit which could be the sign of hemodilution due to fluid therapy. Kidney functions has improved since yesterday, will continue with fluids. cc:: cc: Review of Systems Review of Systems Narrative Review of Systems: General: Denies weight loss, fever and chills. HEENT: Denies changes in vision and hearing. Resp: Denies, cough and wheezing. Reports shortness of breath. CVS: Denies palpitations and CP. GI: Denies abdominal pain, nausea, vomiting and diarrhea. : Denies dysuria and urinary frequency. MSK: Denies myalgia and joint pain. Denies rash and pruritus. Neuro: Denies headache and syncope. Psych: Denies recent changes in mood. Denies anxiety and depression. Past Medical History Past Medical History CARDIAC: Positive Hypercholesterolemia; Negative Cardiac Disorders, Congestive Heart Failure or Hypertension RESPIRATORY: Positive Asthma and Pneumonia; Negative Chronic Obstructive Pulmonary Disease (COPD) GASTROINTESTINAL: Positive Gastrointestinal Disorders GENITOURINARY: Positive Benign Prostatic Hyperplasia; Negative Renal Disease MUSCULOSKELETAL: Positive Musculoskeletal Disorders ENT: Positive Cataracts and Macular Degeneration ENDOCRINE: Positive Hypothyroidism; Negative Diabetes Mellitus Type 1 or Diabetes Mellitus Type 2 HEMATOLOGIC: Negative Sickle Cell Disease OTHER HISTORY: Positive Falls and Blood Transfusions; Negative Blood Transfusion Reaction or Anesthesia Reactions Family History FAMILY HISTORY: Positive Family Gastrointestinal Problems Surgical History SURGICAL: Positive Vascular Surgery, Eye Surgery, Abdominal Surgery and Bowel Surgery Social History SMOKING STATUS: Former smoker SECOND HAND EXPOSURE: No SUBSTANCE USE: does not use Exam Vital Signs Temp Pulse Resp BP Pulse Ox O2 Del Method 97.6 F 43 L 16 122/61 97 Room Air 09/12/24 07:12 09/12/24 07:12 09/12/24 07:12 09/12/24 07:12 09/12/24 07:12 09/12/24 07:12 Narrative Exam Gen: Disheveled elderly male. HEENT: NCAT, PERRLA, EOMI, MMM, anicteric conjunctivae. CVS: normal S1 and S2. RRR. No M/R/G. Resp: CTA B/L. No rhonchi, rales, crackles or wheezing. Abd: soft, non-tender, non-distended. BS+ in all 4 quadrants. MSK: Good ROM in BUE & BLE. No edema or rash. Neuro: CN II-XII grossly intact. Strength 5/5 in BUE & BLE. Alert and oriented x3. Psych: appropriate mood and affect. Results Labs 09/13/24 04:34 09/12/24 03:40 Labs: Short CBC 09/11/24 09/12/24 Range/Units 19:19 03:40 WBC 9.7 7.0 (3.8-10.6) Thou/mm3 Hgb 13.1 L 11.5 L (13.5-16.0) g/dL Hct 38.0 L 34.3 L (41.0-53.0) % Plt Count 178 141 D (140-440) Thou/mm3 BMP 09/11/24 09/12/24 19:19 03:40 Sodium 139 137 Potassium 4.1 4.1 Chloride 105 107 Carbon Dioxide 25.8 22.2 BUN 39 H 32 H Creatinine 2.3 H 1.9 H Glucose 117 H 96 Calcium 9.5 8.5 Liver Function 09/11/24 09/12/24 Range/Units 19:19 03:40 Total Bilirubin 0.7 0.9 (0.3-1.2) mg/dL AST 36 H 52 H (0-34) U/L ALT 22 22 (10-49) U/L Alkaline Phosphatase 74 58 D (46-116) U/L Albumin 4.3 3.6 D (3.4-4.8) gm/dL Urine 09/11/24 Range/Units 23:07 Urine Color Yellow (Lt Yel-Yel) Urine Clarity Clear (Clear/Hazy) Urine pH 5.5 (5.0-7.0) Ur Specific [place] 1.028 (1.001-1.035) Urine Protein 1+ A (Neg - Trace) Urine Glucose (UA) Negative (Negative) Quality Measures Quality Measures VTE prophylaxis Advance care planning discussed with:: patient Medications Home Medications and Allergies Home Medications ?Medication ?Instructions ?Recorded ?Confirmed ?Type finasteride 5 mg tablet (Proscar) 5 mg PO QDAY #0 tabs 07/31/15 09/12/24 History metoprolol tartrate 25 mg tablet 25 mg PO 1XD #0 tabs 07/31/15 09/12/24 History tamsulosin 0.4 mg capsule (Flomax) 0.4 mg PO BID #0 caps 12/27/23 09/12/24 History aspirin 81 mg tablet 81 mg PO QDAY 09/12/24 09/12/24 History levothyroxine 112 mcg tablet 112 mcg PO DAILY 09/12/24 09/12/24 History Allergies Allergy/AdvReac Type Severity Reaction Status Date / Time No Known Allergies Allergy Verified 09/12/24 06:32 Visit Medications Acetaminophen (Acetaminophen 325 Mg Tablet) 650 mg PO Q6H PRN PRN Reason: Pain 1-3 or Fever >100.3 Stop: 10/12/24 01:44 Finasteride (Finasteride 5 Mg Tablet) 5 mg PO QDAY [facility] Stop: 10/12/24 08:59 Heparin Sodium (Porcine) (Heparin Sod Inj 5000 Unit/Ml Vial) 5,000 unit SC Q12HR RAUDEL Stop: 09/26/24 08:59 Sodium Chloride (Ns) 1,000 mls @ 80 mls/hr IV .[id number] ONE Stop: 09/12/24 14:14 Last Admin: 09/12/24 02:17 Dose: 80 mls/hr Levothyroxine Sodium (Levothyroxine Sodium 112 Mcg Tablet) 112 mcg PO ACBR RAUDEL Stop: 10/12/24 05:59 Ondansetron HCl (Ondansetron Inj 2 Mg/Ml Inj 2 Ml) 4 mg IV Q6H PRN; Protocol PRN Reason: NAUSEA OR VOMITING Stop: 10/12/24 01:49 Tamsulosin HCl (Tamsulosin Hcl 0.4 Mg Capsule) 0.4 mg PO QDAY [facility] Stop: 10/12/24 08:59 Discontinued Medications Sodium Chloride (Ns) 1,000 mls @ 999 mls/hr IV .Q1H1M ONE Stop: 09/11/24 21:39 Last Infusion: 09/11/24 22:18 Dose: Infused Assessment & Plan Plan The patient is a 84-year-old male with a previous medical history of CKD, abdominal aortic aneurysm status post aortic stent placement ordered approximately 3-4 weeks ago, BPH, hypothyroidism, 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 Patient has been living at home along. Nephrology was consulted due to SHEREEN. #SHEREEN on CKD IIIa Prerenal vs intrarenal. Prerenal most likely in the setting of dehydration and poor oral intake due to patient not being able to take care of himself. Will do renal doppler US to assess for possible renal vessel abnormalities due to existing abdominal aortic aneurysm. Hard to assess baseline creatinine level. In June 2024 BUN was 15, creatinine 1.3, EGFR 54. BUN:Cr ratio=17 Plan: - continue with maintenance fluids - renal doppler US - avoid nephrotoxic agents - renally dose medication - follow daily CMP #Acute encephalopathy, resolved #Chronic anemia #BPH #Abdominal aneurysm s/p stent placement #Hypothyroidism #History of intestinal cancer s/p ileostomy - management per primary team Plan of care discussed with attending Dr. Banks. Naomi Hernandez MD, PGY 1. Attending Provider Attestation/Addendum Patient seen and examined with resident physician Dr. Salgado. Note reviewed, agree with findings and recommendations. Patient admitted with altered mental status, SHEREEN. Prerenal azotemia most likely. Agree with fluids. Will monitor closely. Thank you Dr. Christina for allowing me to participate in the care of Mr. Lee
[2024-09-12] MEDS: TAMSULOSIN HCL 0.4 MG CAPSULE PO (10:37)
[2024-09-12] MEDS: HEPARIN SOD INJ 5000 UNIT/ML VIAL SC ×2 (10:37→21:14)
--- NOTE | 2024-09-12 10:40 | EKG_ITS ---
[facility] Test Date: 2024-09-12 Pat Name: MONI HINKLE Department: Room: [facility] Gender: Male Director Education: SOY : 1940 Requested By: Nilo Diez Order Number: [id number] Reading MD: Nilo Diez Measurements Intervals [place] Rate: 45 P: 42 MD: 179 QRS: -21 QRSD: 159 T: 22 QT: 478 QTc: 415 Interpretive Statements SINUS BRADYCARDIA BORDERLINE LEFT AXIS DEVIATION [QRS AXIS < -20] INTRAVENTRICULAR CONDUCTION DELAY [130+ ms QRS DURATION] Compared to ECG 03/28/2024 07:48:33 Sinus rhythm no longer present /store/S0/[id number]/[id number].pdf
--- NOTE | 2024-09-12 10:44 | PC.NURSE ---
pharmacy called for Optisort med
--- NOTE | 2024-09-12 11:30 | ESHP_ITS ---
Documentation for date of: 09/12/24 [facility] History of Present Illness History of present illness: This is a 84-year-old male with PMHx of CKD, AAA s/p recent aortic stent placement, BPH, hypothyroidism, colon cancer s/p partial bowel resection with ileostomy, and nephrolithiasis brought in by ambulance for altered mental status. History is limited, poor recollection of oriented up in the hospital, however ANO x 4. Patient lives alone, he has been feeling weak and fatigued recently, has had to use a cane to get around the house. According to EMS, neighbor was the one who called EMS as the patient was found to be confused and altered. Patient states he takes his medications as prescribed by his doctor. He states he has been eating less, due to poor appetite. Denies recent illness or sick exposure. Denies falls, head trauma, headache, chest pain, shortness of breath, productive cough, abdominal pain, other GI or urinary symptoms, or abnormal bleed including GI bleed, dark stool or hematuria. ED COURSE: Afebrile, BP 167/80, HR 69, satting in 90s on room air No leukocytosis, Hgb 11.5 CMP pertinent for creatinine 2.3, GFR 27, AST 36, LD 324, TSH 5.3 with free T4 1.38 UA negative for UTI. U tox negative Radiographical analysis limited due to motion: CT head no hemorrhage or mass effect, CT cervical spine no gross fracture, recommended repeat if clinical suspicion. CT abdominal pelvis shows subacute severe compression fracture of T11 vertebral body. Patient given 1 L bolus normal saline PMHx: CKD, AAA with aortic stent, BPH, hypothyroidism, colon cancer, partial bowel resection, ileostomy, nephrolithiasis PSHx: Partial bowel resection with ileostomy, aortic stent MEDS: METOPROLOL 25, TAMSULOSIN 0.4 BID, FINASTERIDE 5 mg, LEVOTHYROXINE 112 mcg ALLERGIES: No known allergies SH: Lives alone, denies alcohol, tobacco or drugs Patient admitted to floors for further management. Currently, nephrology team is following. Currently pending bilateral renal artery ultrasound to rule out stenosis given history of aortic stenting. Exam Vital Signs Temp Pulse Resp BP Pulse Ox O2 Del Method 97.9 F 49 L 14 135/69 H 98 Room Air 09/12/24 10:47 09/12/24 10:47 09/12/24 10:47 09/12/24 10:47 09/12/24 10:47 09/12/24 10:47 Narrative Exam GENERAL: Disheveled, ill-appearing, elderly male. Male, no apparent distress HEENT: Bilateral clear lacrimation, without conjunctival injection. NCAT.?KEYANNA. Oral mucosa is moist. Patent Nares NECK: Supple, nontender, no thyromegaly, no meningismus, no JVD, no step offs CHEST: Symmetrical, atraumatic, and with equal expansion, Nontender on palpation no deformity and no crepitus. CARDIOVASCULAR: RRR, no m/g/r LUNGS: CTAB, no w/r/r. Symmetrical chest rise. No intercostal subcostal retraction. ABDOMEN: Soft, flat, nontender. No guarding/rebound tenderness/masses. +BS EXTREMITIES: Nontender.? No edema/cyanosis.?Moves all 4 extremities well, with full ROM and good CSM. SKIN: Warm and dry, no jaundice/rashes. MSK: No lumbar or midline, no CVA, no paraspinal muscle spasm or tenderness. NEURO: YAÑEZ x4, CN II-XII grossly intact.?No focal neurologic deficits. PSYCHIATRIC: Normal mood and affect, cooperative, no SI or HI or hallucinations. Results: Labs 09/13/24 04:34 09/13/24 04:34 Labs: Short CBC 09/11/24 09/12/24 Range/Units 19:19 03:40 WBC 9.7 7.0 (3.8-10.6) Thou/mm3 Hgb 13.1 L 11.5 L (13.5-16.0) g/dL Hct 38.0 L 34.3 L (41.0-53.0) % Plt Count 178 141 D (140-440) Thou/mm3 BMP 09/11/24 09/12/24 19:19 03:40 Sodium 139 137 Potassium 4.1 4.1 Chloride 105 107 Carbon Dioxide 25.8 22.2 BUN 39 H 32 H Creatinine 2.3 H 1.9 H Glucose 117 H 96 Calcium 9.5 8.5 Liver Function 09/11/24 09/12/24 Range/Units 19:19 03:40 Total Bilirubin 0.7 0.9 (0.3-1.2) mg/dL AST 36 H 52 H (0-34) U/L ALT 22 22 (10-49) U/L Alkaline Phosphatase 74 58 D (46-116) U/L Albumin 4.3 3.6 D (3.4-4.8) gm/dL Urine 09/11/24 Range/Units 23:07 Urine Color Yellow (Lt Yel-Yel) Urine Clarity Clear (Clear/Hazy) Urine pH 5.5 (5.0-7.0) Ur Specific [place] 1.028 (1.001-1.035) Urine Protein 1+ A (Neg - Trace) Urine Glucose (UA) Negative (Negative) Quality Measures Quality Measures VTE prophylaxis Advance care planning discussed with:: patient Medications Home Medications and Allergies Home Medications ?Medication ?Instructions ?Recorded ?Confirmed ?Type finasteride 5 mg tablet (Proscar) 5 mg PO QDAY #0 tabs 07/31/15 09/12/24 History metoprolol tartrate 25 mg tablet 25 mg PO 1XD #0 tabs 07/31/15 09/12/24 History tamsulosin 0.4 mg capsule (Flomax) 0.4 mg PO BID #0 caps 12/27/23 09/12/24 History aspirin 81 mg tablet 81 mg PO QDAY 09/12/24 09/12/24 History levothyroxine 112 mcg tablet 112 mcg PO DAILY 09/12/24 09/12/24 History Allergies Allergy/AdvReac Type Severity Reaction Status Date / Time No Known Allergies Allergy Verified 09/12/24 06:32 Visit Medications Acetaminophen (Acetaminophen 325 Mg Tablet) 650 mg PO Q6H PRN PRN Reason: Pain 1-3 or Fever >100.3 Stop: 10/12/24 01:44 Finasteride (Finasteride 5 Mg Tablet) 5 mg PO QDAY [facility] Stop: 10/12/24 08:59 Heparin Sodium (Porcine) (Heparin Sod Inj 5000 Unit/Ml Vial) 5,000 unit SC Q12HR RAUDEL Stop: 09/26/24 08:59 Last Admin: 09/12/24 10:37 Dose: 5,000 unit Sodium Chloride (Ns) 1,000 mls @ 80 mls/hr IV .[id number] ONE Stop: 09/12/24 14:14 Last Admin: 09/12/24 02:17 Dose: 80 mls/hr Levothyroxine Sodium (Levothyroxine Sodium 112 Mcg Tablet) 112 mcg PO ACBR [facility] Stop: 10/12/24 05:59 Last Admin: 09/12/24 10:32 Dose: Not Given Ondansetron HCl (Ondansetron Inj 2 Mg/Ml Inj 2 Ml) 4 mg IV Q6H PRN; Protocol PRN Reason: NAUSEA OR VOMITING Stop: 10/12/24 01:49 Tamsulosin HCl (Tamsulosin Hcl 0.4 Mg Capsule) 0.4 mg PO QDAY [facility] Stop: 10/12/24 08:59 Last Admin: 09/12/24 10:37 Dose: 0.4 mg Discontinued Medications Sodium Chloride (Ns) 1,000 mls @ 999 mls/hr IV .Q1H1M ONE Stop: 09/11/24 21:39 Last Infusion: 09/11/24 22:18 Dose: Infused Assessment & Plan Plan In summary: 84-year-old male senting with altered mental status, admitted for acute encephalopathy workup. PMHx of CKD, AAA s/p aortic stent, BPH, hypothyroidism, colon cancer s/p partial bowel resection with ileostomy, nephrolithiasis. Acute encephalopathy likely secondary to dehydration Complains of 2 weeks of worsening weakness, having to use a cane to get around his house. Likely secondary to dehydration. CT head neck negative for acute pathology, denies fall or head traum, no focal neurologic deficits on exam, AOA x 4. No acute metabolic abnormality. No evidence of arrhythmia. No reported seizure. Less likely infectious although patient complains of cough, will follow-up with CXR, however he is afebrile without leukocytosis. No signs of encephalitis or meningitis. Urine negative for UTI. Toxicology screen negative. No evidence of hypoxemia or hypoglycemia. No sign of of CHF, lungs, no volume overload, BNP 40. ? Anticipate improvement with rehydration ? Pending CXR Prerenal SHEREEN on possible CKD 3B CR 2.3 then 1.9 after fluids. Pending bilateral renal ultrasound. Nephrology on board. Anticipate improvement with rehydration. ? Daily CMP ? Renally dose meds, avoid overdiuresis and NEPHROTOXINS ? Pending nephrology recommendations Acute transaminitis Likely ischemic hepatopathy 2/2 dehydration peak AST 52, ALT normal. Nontender abdomen on exam, no signs or symptoms of cirrhosis, or biliary obstruction. No alcohol use. Anticipate improvement with fluid resuscitation. ? Daily CMP ? Consider hepatitis panel if no improvement in LFTs. History of abdominal aortic aneurysm S/p aortic stent No aortic bruits, no complaints of abdominal pain, intact bilateral LE pulses ? Continued home METOPROLOL 25 mg daily Subclinical hypothyroidism TSH 5.33, free T4 1.38. Less likely to be contributing to acute encephalopathy ? Continue home LEVOTHYROXINE 112 mcg AC BR ? Recommended outpatient follow-up Chronic normocytic anemia Hgb 11.5, baseline around 13-14 No signs of active bleed. Denies dark stool, hematuria, hematemesis or hemoptysis. ? Daily CBC ? Transfuse if Hgb <7 BPH No signs or symptoms of urinary retention ? Continue home FINASTERIDE 5 mg daily ? Continue home TAMSULOSIN 0.4 mg daily Elevated lactic dehydrogenase LD 324. Will follow-up with PSA ? Continue to monitor Epiphora (increased lacrimation) Noted on exam, increased clear lacrimation bilaterally, nonpurulent, without conjunctival injection or swelling of eyelids infection. Patient states symptoms ongoing for 2+ weeks. Possible allergic versus viral conjunctivitis. No signs of facial palsy or cranial nerve damage. Intact vision bilaterally. ? Eye care ? Artificial tears ? Recommended outpatient ophthalmology follow-up Colon cancer S/p partial bowel resection with ileostomy No signs of worsening symptoms, no abnormal weight loss, no B symptoms. ? Continue to monitor Health maintenance Diet: Renal GI prophylaxis: Not indicated DVT prophylaxis: HEPARIN Antibiotics: None CODE STATUS: Limited code, DO NOT INTUBATE Disposition: Pending nephrology recommendations Patient case was discussed with attending, Ye Christina MD and senior residents Dr. Peter and Dr. Diez. Aubrie Downing, DO PGYI L Mr Lee is a 84-year-old male presenting with altered mentation, and a past medical history of CKD stage III, AAA s/p infrarenal aorto-iliac stent, BPH, hypothyroidism, colon cancer s/p hemicolectomy with ileostomy, who is admitted for acute encephalopathy and SHEREEN on CKD. Nephrology Dr Banks is consulted for further evaluation. Other pertinent findings on lab work include elevated LDH, will get PSA level. Patient received IVF in the ED, after which Cr imporved from 2.3 --> 1.9. We will continue IV hydration, start oral diet and home medications. Nephrology recs to follow. And re-evaluate mentation once all electrolytes repleted and adequate hydration levels achieved. Will also get am iron panel for normocytic anemia noted. Patient examined and case discussed with the team including attending physician. Note reviewed, I agree with the care plan as documented. - Nilo Diez MD, PGY 2 Attending Provider Attestation/Addendum I reviewed labs, imaging, EKG, home medications and prior available records. Face to face evaluation was performed by me. I have personally examined the patient and discussed assessment and plan with the IM team. I reviewed the resident note and agree with the plan with exceptions as below. Acute encephalopathy SHEREEN on CKD T11 vertebral fracture Asymptomatic bradycardia History of AAA status post stenting Hypothyroidism BPH Monitor mental status Start IV hydration. Monitor kidney function. Avoid nephrotoxins. Renally dosed medications. No renal artery stenosis on the arterial duplex. No need to transfer. Supportive care for the compression fracture. Management of pain as needed. Ordered PT evaluation.
--- NOTE | 2024-09-12 12:17 | XR_ITS ---
Examination: AP chest single view Technique one AP portable semiupright chest single view Exam date and time: September 12, 2024 1317 hours INDICATIONS: Coughing shortness of breath beginning 3 days ago. FINDINGS: Accentuation basilar bronchovascular markings Mild prominence left ventricle Prominence central pulmonary vasculature, mild Prominent osteopenia IMPRESSION: Basilar bronchitis pattern
--- NOTE | 2024-09-12 13:04 | PC.NURSE ---
Pt arrived on the floor at 13:03. Checked on patient. Pt eating lunch at this time.
[2024-09-12 13:53] LABS: Folate > 24.00 ng/mL (>5.38); Vitamin B12 1107 pg/mL (211-911)
[2024-09-12] MEDS: FINASTERIDE 5 MG TABLET PO (15:28)
--- NOTE | 2024-09-12 16:04 | ECHO_ITS ---
Transthoracic Echo Report Ht (in): 72 Wt (lb): 223 Exam Location: Portable Status: Inpatient Banquet Prep Cook: Pat Estrada Indications: Procedure Performed: BP: 156 / 75 HR: 50 Rhythm: Sinus Technical Quality: Technically difficult study MEASUREMENTS (Male / Female) Normal Values 2D ECHO LVOT Diameter 2.2 cm M-MODE Aortic Root Diameter MM 3.7 cm LA Systolic Diameter MM 4.4 cm LA Ao Ratio MM 1.2 AV Cusp Separation MM 2.4 cm DOPPLER AV Peak Velocity 174.0 cm/s AV Peak Gradient 12.1 mmHg AV Mean Gradient 6.0 mmHg AV Velocity Time Integral 34.4 cm LVOT Peak Velocity 84.2 cm/s LVOT Peak Gradient 2.8 mmHg LVOT Velocity Time Integral 15.5 cm LVOT Cardiac Index 1286.1 cm?/min?m? AV Area Cont Eq vti 1.7 cm? AV Area Cont Eq pk 1.8 cm? MV Peak Velocity 68.9 cm/s MV Peak Gradient 1.9 mmHg MV Mean Velocity 26.7 cm/s MV Mean Gradient 1.0 mmHg MV Area PHT 3.9 cm? Mitral E Point Velocity 63.1 cm/s Mitral A Point Velocity 59.2 cm/s Mitral E to A Ratio 1.1 LV E' Lateral Velocity 9.1 cm/s Mitral E to LV E' Lateral Ratio 6.9 LV E' Septal Velocity 6.4 cm/s Mitral E to LV E' Septal Ratio 9.8 TR Peak Velocity 151.0 cm/s TR Peak Gradient 9.1 mmHg FINDINGS Left Ventricle Normal left ventricular size, wall thickness, systolic function with no obvious regional wall motion abnormalities. The ejection fraction is visually estimated at 55-60%. Right Ventricle The right ventricle is mildly dilated. systolic function. The estimated right ventricular systolic pressure, 19 mmHg.RAP 10. Left Atrium The left atrium is normal by two-dimensional, color flow and Doppler imaging with no structural abnormalities, no thrombus formation present. Right Atrium The right atrium is normal by two-dimensional imaging, color flow and Doppler imaging with no struct ural abnormalities, no thrombus formation present. Atrial Septum The interatrial septum appears normal with no evidence of a shunt. Aorta The aorta is normal by two-dimensional, color flow and Doppler interrogation. Mitral Valve The mitral valve is normal by two-dimensional, color flow and Doppler interrogation. There is mild mitral valve regurgitation. Aortic Valve The aortic valve is trileaflet. Mild sclerosis without stenosis. There is mild to moderate aortic v alve regurgitation. Tricuspid Valve The tricuspid valve is normal by two-dimensional, color flow and Doppler interrogation. There is mil d tricuspid valve regurgitation. Pulmonic Valve There is no significant pulmonic valve regurgitation. Vessels The pulmonary artery appears normal. The inferior vena cava pulmonary and hepatic veins appear verna l. Pericardium The pericardium is normal by two-dimensional imaging. There is no significant pericardial effusion. CONCLUSIONS Suboptimal images due to patient unstable. Normal LV size and function. Estimated EF 55-60% Mild RV dilatation. Normal RV function. Mild AV sclerosis with mild aortic regurgitation Trace mitral and trace tricuspid regurgitation Carolee Fried (Electronically Signed) Final Date: 13 September 2024 22:52
--- NOTE | 2024-09-12 17:12 | PC.NURSE ---
Notified Dr. Diez of Pt's HR dropping to 39 BPM X2, HR did not sustain, EKG ordered per MD
[2024-09-12 18:29] LABS: Troponin I 0.031 ng/mL (0.0-0.045)
--- NOTE | 2024-09-12 22:57 | PC.NURSE ---
Dr. Bhagat notified of patient heart rate dropping to 37 but not sustaining and HR now in low 40s; patient asymptomatic, resting with eyes closed. No new orders at this time, including not to obtain EKG.
[2024-09-13] VITALS (7 sets, daily range): BP systolic 136–175; BP diastolic 63–82; PULSE 47–59; RESP 15–20; TEMP 36.3–36.7; O2SAT 93–95; BMI 30.2
--- NOTE | 2024-09-13 02:29 | PC.NURSE ---
Dr. Osorio notified that patient has become increasingly restless and more confused in the last few hours, pulling at his lines and tele box. stated that they will come to bedside to assess patient.
--- NOTE | 2024-09-13 03:35 | PC.NURSE ---
Dr. Osorio and Dr. Murry made aware of patient altered mental status that has gotten worse. Dr. Osorio ordered soft wrist restraints.
[2024-09-13 05:25] LABS: Basophils % (Auto) 1 % (0-2.5); Eosinophils # (Auto) 0.2 Thou/mm3 (0.0-0.5); Eosinophils % (Auto) 3 % (0-10); Hematocrit 34.3 % (41.0-53.0); Hemoglobin 11.3 g/dL (13.5-16.0); Immature Granulocytes % (Auto) 0 % (0-0); Immature Granulocytes Auto 0.02 Thou/mm3 (0.00-0.00); Lymphocytes % (Auto) 18 % (10-50); Mean Corpuscular HGB Conc 32.9 g/dl (31.0-37.0); Mean Corpuscular Hemoglobin 30.4 pg (25.0-35.0); Mean Corpuscular Volume 92 fL (80-100); Monocytes # (Auto) 0.6 Thou/mm3 (0.0-0.8); Monocytes % (Auto) 11 % (0-12); Neutrophils # (Auto) 3.7 Thou/mm3 (1.8-7.7); Neutrophils % (Auto) 68 % (37-80); Nucleated Red Blood Cell % 0 /100 WBC (0); Platelet Count 152 Thou/mm3 (140-440); RDW Standard Deviation 46.5 fL (35.1-43.9); Red Blood Count 3.72 Miln/mm3 (4.50-5.90); White Blood Count 5.4 Thou/mm3 (3.8-10.6)
[2024-09-13] MEDS: LEVOTHYROXINE SODIUM 112 MCG TABLET PO (06:11)
[2024-09-13 07:10] LABS: Alanine Aminotransferase 23 U/L (10-49); Albumin, Serum 3.5 gm/dL (3.4-4.8); Albumin/Globulin Ratio 1.5 (1.2-2.2); Alkaline Phosphatase 63 U/L (46-116); Anion Gap 10 (7-16); Aspartate Amino Transferase 45 U/L (0-34); BUN/Creatinine Ratio 17 Ratio (12-20); Bilirubin,Total 0.8 mg/dL (0.3-1.2); Blood Urea Nitrogen 29 mg/dL (9-23); Calcium 9.1 mg/dL (8.3-10.6); Calcium (Corrected) 9.5 mg/dL (8.5-10.1); Chloride 108 mMol/L (98-107); Creatinine (Component) 1.7 mg/dL (0.6-1.3); Estimated Creatinine Clearance 39.8 mL/min (>60); Globulin 2.3 gm/dL (2.3-3.5); Glucose 94 mg/dL (74-106); Magnesium 2.1 mg/dL (1.6-2.6); Osmolality,Calculated 285 (275-295); Phosphorous 2.3 mg/dL (2.4-5.1); Potassium 3.5 mMol/L (3.4-5.1); Sodium 140 mMol/L (136-145); Total Protein 5.8 gm/dL (5.7-8.2); eGFR 39 See Note
--- NOTE | 2024-09-13 08:03 | ESPR_ITS ---
Documentation for date of: 09/13/24 Subjective Subjective Interval history: Overnight heart rate 30s while sleeping, patient otherwise asymptomatic. Mentation improved overnight. Currently able to recall events more accurately. Alert and oriented x 4. Denies fever, chills, headaches, chest pain, sob, cough, GI or urinary symptoms. Exam Vital Signs Temp Pulse Resp BP Pulse Ox O2 Del Method 97.5 F 49 L 18 156/75 H 94 L Room Air 09/13/24 07:40 09/13/24 07:40 09/13/24 07:40 09/13/24 07:40 09/13/24 07:40 09/13/24 07:40 Narrative Exam GENERAL: Disheveled, ill-appearing, elderly male. Male, no apparent distress HEENT: Bilateral clear lacrimation, without conjunctival injection. NCAT.?KEYANNA. Oral mucosa is moist. Patent Nares NECK: Supple, nontender, no thyromegaly, no meningismus, no JVD, no step offs CHEST: Symmetrical, atraumatic, and with equal expansion, Nontender on palpation no deformity and no crepitus. CARDIOVASCULAR: RRR, no m/g/r LUNGS: CTAB, no w/r/r. Symmetrical chest rise. No intercostal subcostal retraction. ABDOMEN: Soft, flat, nontender. No guarding/rebound tenderness/masses. +BS EXTREMITIES: Nontender.? No edema/cyanosis.?Moves all 4 extremities well, with full ROM and good CSM. SKIN: Warm and dry, no jaundice/rashes. MSK: No lumbar or midline, no CVA, no paraspinal muscle spasm or tenderness. NEURO: YAÑEZ x4, CN II-XII grossly intact.?No focal neurologic deficits. PSYCHIATRIC: Normal mood and affect, cooperative, no SI or HI or hallucinations. Objective Labs 09/14/24 06:50 09/14/24 06:50 Labs: Laboratory Results - last 24 hr 09/12/24 09/12/24 09/13/24 12:45 17:48 04:34 WBC 5.4 RBC 3.72 L Hgb 11.3 L Hct 34.3 L MCV 92 MCH 30.4 MCHC 32.9 RDW Std Deviation 46.5 H Plt Count 152 Neut % (Auto) 68 Lymph % (Auto) 18 [place] % (Auto) 11 Eos % (Auto) 3 Baso % (Auto) 1 Neut # (Auto) 3.7 Lymph # (Auto) 1.0 [place] # (Auto) 0.6 Eos # (Auto) 0.2 Baso # (Auto) 0.0 Immature Gran # (Auto) 0.02 H Absolute Nucleated RBC 0.00 Immature Gran % 0 Nucleated RBC % 0 Sodium 140 Potassium 3.5 D Chloride 108 H Carbon Dioxide 22.0 Anion Gap 10 BUN 29 H Creatinine 1.7 H Estim Creat Clear Calc 39.8 L eGFR 39 L BUN/Creatinine Ratio 17 Glucose 94 Calculated Osmolality 285 Calcium 9.1 Corrected Calcium 9.5 Phosphorus 2.3 L Magnesium 2.1 Total Bilirubin 0.8 AST 45 H ALT 23 Alkaline Phosphatase 63 Troponin I 0.031 Total Protein 5.8 Albumin 3.5 Globulin 2.3 Albumin/Globulin Ratio 1.5 Vitamin B12 1107 H Folate > 24.00 Quality Measures Quality Measures VTE prophylaxis Advance care planning discussed with:: patient Assessment & Plan Assessment Current Active Medications: Generic Name Dose Route Start Last Admin Trade Name Freq PRN Reason Stop Dose Admin Acetaminophen 650 mg 09/12/24 01:45 Acetaminophen 325 Mg Tablet PO 10/12/24 01:44 Q6H PRN Pain 1-3 or Fever >100.3 Finasteride 5 mg 09/12/24 09:00 09/12/24 15:28 Finasteride 5 Mg Tablet PO 10/12/24 08:59 5 mg QDAY RAUDEL Administration Heparin Sodium (Porcine) 5,000 unit 09/12/24 09:00 09/12/24 21:14 Heparin Sod Inj 5000 Unit/Ml Vial SC 09/26/24 08:59 5,000 unit Q12HR RAUDEL Administration Levothyroxine Sodium 112 mcg 09/12/24 06:00 09/13/24 06:11 Levothyroxine Sodium 112 Mcg Tablet PO 10/12/24 05:59 112 mcg ACBR RAUDEL Administration Ondansetron HCl 4 mg 09/12/24 01:50 Ondansetron Inj 2 Mg/Ml Inj 2 Ml IV 10/12/24 01:49 Q6H PRN NAUSEA OR VOMITING Protocol Tamsulosin HCl 0.4 mg 09/12/24 09:00 09/12/24 10:37 Tamsulosin Hcl 0.4 Mg Capsule PO 10/12/24 08:59 0.4 mg QDAY RAUDEL Administration Plan In summary: 84-year-old male senting with altered mental status, admitted for acute encephalopathy workup. PMHx of CKD, AAA s/p aortic stent, BPH, hypothyroidism, colon cancer s/p partial bowel resection with ileostomy, nephrolithiasis. Overnight, HR 30s, they got troponin which was negative BP 156/75, HR 49, 94% on room air CR 2.3 >1.7, sodium Folate and B12 are normal, AST improving Got a chest x-ray which showed bibasilar bronchitis Renal ultrasound was negative for renal artery stenosis Acute encephalopathy likely secondary to dehydration ?Dementia vs. delirium Complains of 2 weeks of worsening weakness, having to use a cane to get around his house. Likely secondary to dehydration. CT head neck negative for acute pathology, denies fall or head traum, no focal neurologic deficits on exam, AOA x 4. No acute metabolic abnormality. No evidence of arrhythmia. No reported seizure. Less likely infectious although patient complains of cough, will follow-up with CXR, however he is afebrile without leukocytosis. No signs of encephalitis or meningitis. Urine negative for UTI. Toxicology screen negative. No evidence of hypoxemia or hypoglycemia. No sign of of CHF, lungs, no volume overload, BNP 40. ? Anticipate improvement with rehydration ? Pending CXR ? 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 Pending bilateral renal ultrasound. Nephrology on board. Anticipate improvement with rehydration. ? Daily CMP ? Renally dose meds, avoid overdiuresis and NEPHROTOXINS ? Pending nephrology recommendations Asymptomatic bradycardia Overnight, HR noted to be in 30s, improved to mid 40-50s, patient otherwise asymptomatic. Denies history of loss of consciousness, palpitations or syncope. Currently HR in 60s. EKG sinus, troponin ordered which were negative. ? Follow-up outpatient with PCP, consider Holter monitor Acute transaminitis Likely ischemic hepatopathy 2/2 dehydration peak AST 52, ALT normal. Nontender abdomen on exam, no signs or symptoms of cirrhosis, or biliary obstruction. No alcohol use. Anticipate improvement with fluid resuscitation. ? Daily CMP ? Consider hepatitis panel if no improvement in LFTs. History of abdominal aortic aneurysm S/p aortic stent No aortic bruits, no complaints of abdominal pain, intact bilateral LE pulses ? Continued home METOPROLOL 25 mg daily Subclinical hypothyroidism TSH 5.33, free T4 1.38. Less likely to be contributing to acute encephalopathy ? Continue home LEVOTHYROXINE 112 mcg AC BR ? Recommended outpatient follow-up Chronic normocytic anemia Hgb 11.5, baseline around 13-14 No signs of active bleed. Denies dark stool, hematuria, hematemesis or hemoptysis. ? Daily CBC ? Transfuse if Hgb <7 BPH No signs or symptoms of urinary retention ? Continue home FINASTERIDE 5 mg daily ? Continue home TAMSULOSIN 0.4 mg daily Elevated lactic dehydrogenase LD 324. Will follow-up with PSA ? Continue to monitor ? Pending PSA Epiphora (increased lacrimation) Noted on exam, increased clear lacrimation bilaterally, nonpurulent, without conjunctival injection or swelling of eyelids infection. Patient states symptoms ongoing for 2+ weeks. Possible allergic versus viral conjunctivitis. No signs of facial palsy or cranial nerve damage. Intact vision bilaterally. ? Eye care ? Artificial tears ? Recommended outpatient ophthalmology follow-up History of severe diverticulitis S/p partial bowel resection with ileostomy No signs of worsening symptoms, no abnormal weight loss, no B symptoms. ? Recommended low fiber diet ? Follow-up outpatient as needed Health maintenance Diet: Renal GI prophylaxis: Not indicated DVT prophylaxis: HEPARIN Antibiotics: None CODE STATUS: Limited code, DO NOT INTUBATE Disposition: Pending nephrology recommendations Patient case was discussed with attending, Ye Christina MD and senior residents Dr. Peter and Dr. Diez. Aubrie Downing DO PGYI Attending Provider Attestation/Addendum I reviewed labs, imaging, EKG, home medications and prior available records. Face to face evaluation was performed by me. I have personally examined the patient and discussed assessment and plan with the IM team. I reviewed the resident note and agree with the plan with exceptions as below. Acute encephalopathy HSEREEN on CKD T11 vertebral fracture Asymptomatic bradycardia History of AAA status post stenting Hypothyroidism BPH Status post colostomy Monitor mental status: Concern for early dementia given the reports of progressive decline over the last few weeks Start IV hydration. Monitor kidney function. Avoid nephrotoxins. Renally dosed medications. No renal artery stenosis on the arterial duplex. No need to transfer. Supportive care for the compression fracture. Management of pain as needed. Ordered PT evaluation. Low fiber diet given the colostomy.
[2024-09-13] MEDS: HEPARIN SOD INJ 5000 UNIT/ML VIAL SC ×2 (08:57→21:26)
[2024-09-13] MEDS: FINASTERIDE 5 MG TABLET PO (08:58)
[2024-09-13] MEDS: TAMSULOSIN HCL 0.4 MG CAPSULE PO (08:58)
[2024-09-13 09:41] LABS: Iron 58 mcg/dL (65-175)
--- NOTE | 2024-09-13 12:18 | PC.SS ---
Addendum entered by ELLIOT Pelayo 09/13/24 13:51: PASRR completed. Level 1. Addendum entered by ELLIOT Pelayo 09/13/24 12:22: Spoke with patient's POAVictoria, she informed [facility] is preferred SNF. Contacted Beti at [facility]. Confirms they can accept the patient at time of discharge. Patient is pending 3 midnight stay inpatient due to medicare guidelines. Original Note: SS update: SNF inquiry sent via [employer].
[2024-09-13] MEDS: ACETAMINOPHEN 325 MG TABLET 650 MG PO (14:11)
[2024-09-13 14:42] LABS: Percent Iron Saturation 20 % (20-55); Prostate Specific Antigen < 0.10 ng/mL (0-4.00); Total Iron Binding Capacity 288 mcg/dL (250-425); Unsaturated Iron Binding 230 (225-295)
--- NOTE | 2024-09-13 15:17 | PC.DIETICIAN ---
Addendum entered by Juan Cortez, SHAN 09/13/24 15:25: For a renal and low-fiber diet, focus on lean proteins like eggs, skinless chicken, and fish, paired with low-potassium vegetables potatoes, carrots, green beans, zucchini, hoskins peppers (cooked and peeled), white rice, and refined breads. Limit high-fiber foods like whole grains and raw vegetables, and provide low-potassium fruits like applesauce, peeled peaches, and cantaloupe. Original Note: For a renal and low-fiber diet, focus on lean proteins like eggs, skinless chicken, and fish, paired with low-potassium vegetables (cooked and peeled), white rice, and refined breads. Limit high-fiber foods like whole grains and raw vegetables, and provide low-potassium fruits like applesauce, peeled peaches, and cantaloupe.
--- NOTE | 2024-09-13 15:47 | ESPR_ITS ---
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 Patient has been living at home along. ED course: Blood pressure was 167/80, heart rate 69, afebrile, saturating well on room air. Labs showed WBC 9.7, hemoglobin 13.1, hematocrit 38, sodium 139, potassium 4.1, chloride 105, bicarb 25.8, BUN 39, creatinine 2.3, EGFR 27, glucose 117, LDH 324. In June 2024 BUN was 15, creatinine 1.3, EGFR 54. UA and U tox were unremarkable. Head CT was limited study, negative for acute stroke or fractures, cervical CT Limited study due to patient's motion, no gross fracture. Abdominal pelvic CT showed aortoiliac endoluminal stent with 6.3 cm infrarenal abdominal aortic aneurysm, subacute severe fracture of T11 vertebral body, small bowel loops partially incarcerated with early small bowel obstruction. Patient was started on fluids, received 1 L of normal saline and receives maintenance fluid at 80 mL/h. POA requested patient to be transferred back to [facility] hospital where he did his aortic aneurysm surgery, transfer is not accepted at the moment. Renal Doppler was ordered to assess kidney vessels. Clearing Supervisor Dr. Banks was consulted for SHEREEN treatment and management. 09/12/2024: Patient seen and examined by the bedside in the ED. He reports feeling short of breath, saturates well on room air, no tachypnea, no orthopnea. He is AAOx3, reports feeling short of breath, denies headache, chest pain, chest pressure, abdominal pain, weakness, vision changes. He denies smoking and alcohol use. Blood pressure 122/61. Labs showed WBC 7, hemoglobin 11.5, hematocrit 34.3, platelets 141. Sodium 137, potassium 4.1, carbon dioxide 22.2, BUN 32, creatinine 1.9, EGFR 34, AST 52, ALT 22. Hemoglobin decreased together with hematocrit which could be the sign of hemodilution due to fluid therapy. Kidney functions has improved since yesterday, will continue with fluids. 09/03/24: Patient was seen and examined by the bedside. No acute overnight events. Patient is feeling well. Labs showed sodium 140, potassium 3.5, chloride 108, BUN 29, creatinine 1.7, EGFR 39. Fluids were discontinued yesterday, kidney function continued to improve. Patient continues to have urine output, amount is unmeasured. Exam Vital Signs Temp Pulse Resp BP Pulse Ox O2 Del Method 97.5 F 58 L 18 175/82 H 94 L Room Air 09/13/24 12:00 09/13/24 12:00 09/13/24 12:09/13/24 12:09/13/24 12:09/13/24 12:00 Narrative Exam Gen: Disheveled elderly male. HEENT: NCAT, PERRLA, EOMI, MMM, anicteric conjunctivae. CVS: normal S1 and S2. RRR. No M/R/G. Resp: CTA B/L. No rhonchi, rales, crackles or wheezing. Abd: soft, non-tender, non-distended. BS+ in all 4 quadrants. Ileostomy with bag in place, site unremarkable. MSK: Good ROM in BUE & BLE. No edema or rash. Neuro: CN II-XII grossly intact. Strength 5/5 in BUE & BLE. Alert and oriented x3. Psych: appropriate mood and affect. Objective Labs 09/14/24 06:50 09/14/24 06:50 Labs: Laboratory Results - last 24 hr 09/12/24 09/13/24 17:48 04:34 WBC 5.4 RBC 3.72 L Hgb 11.3 L Hct 34.3 L MCV 92 MCH 30.4 MCHC 32.9 RDW Std Deviation 46.5 H Plt Count 152 Neut % (Auto) 68 Lymph % (Auto) 18 [place] % (Auto) 11 Eos % (Auto) 3 Baso % (Auto) 1 Neut # (Auto) 3.7 Lymph # (Auto) 1.0 [place] # (Auto) 0.6 Eos # (Auto) 0.2 Baso # (Auto) 0.0 Immature Gran # (Auto) 0.02 H Absolute Nucleated RBC 0.00 Immature Gran % 0 Nucleated RBC % 0 Sodium 140 Potassium 3.5 D Chloride 108 H Carbon Dioxide 22.0 Anion Gap 10 BUN 29 H Creatinine 1.7 H Estim Creat Clear Calc 39.8 L eGFR 39 L BUN/Creatinine Ratio 17 Glucose 94 Calculated Osmolality 285 Calcium 9.1 Corrected Calcium 9.5 Phosphorus 2.3 L Magnesium 2.1 Iron 58 L TIBC 288 Iron Saturation 20 Unsat Iron Binding 230 Total Bilirubin 0.8 AST 45 H ALT 23 Alkaline Phosphatase 63 Troponin I 0.031 Total Protein 5.8 Albumin 3.5 Globulin 2.3 Albumin/Globulin Ratio 1.5 Prostate Specific Ag < 0.10 Quality Measures Quality Measures VTE prophylaxis Advance care planning discussed with:: other Assessment & Plan Assessment Current Active Medications: Generic Name Dose Route Start Last Admin Trade Name Freq PRN Reason Stop Dose Admin Acetaminophen 650 mg 09/13/24 14:15 Acetaminophen 325 Mg Tablet PO 10/13/24 14:14 Q6H RAUDEL Finasteride 5 mg 09/12/24 09:00 09/13/24 08:58 Finasteride 5 Mg Tablet PO 10/12/24 08:59 5 mg QDAY RAUDEL Administration Heparin Sodium (Porcine) 5,000 unit 09/12/24 09:00 09/13/24 08:57 Heparin Sod Inj 5000 Unit/Ml Vial SC 09/26/24 08:59 5,000 unit Q12HR RAUDEL Administration Levothyroxine Sodium 112 mcg 09/12/24 06:00 09/13/24 06:11 Levothyroxine Sodium 112 Mcg Tablet PO 10/12/24 05:59 112 mcg ACBR RAUDEL Administration Ondansetron HCl 4 mg 09/12/24 01:50 Ondansetron Inj 2 Mg/Ml Inj 2 Ml IV 10/12/24 01:49 Q6H PRN NAUSEA OR VOMITING Protocol Tamsulosin HCl 0.4 mg 09/12/24 09:00 09/13/24 08:58 Tamsulosin Hcl 0.4 Mg Capsule PO 10/12/24 08:59 0.4 mg QDAY RAUDEL Administration Plan The patient is a 84-year-old male with a previous medical history of CKD, abdominal aortic aneurysm status post aortic stent placement ordered approximately 3-4 weeks ago, BPH, hypothyroidism, 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 Patient has been living at home along. Nephrology was consulted due to SHEREEN. #SHEREEN on CKD IIIa, improving Prerenal in the setting of dehydration and poor oral intake due to patient not being able to take care of himself. Renal Doppler ultrasound was unremarkable, negative for renal artery stenosis. Hard to assess baseline creatinine level. In June 2024 BUN was 15, creatinine 1.3, EGFR 54. 12/18 BUN:Cr ratio=17 Plan: -Encouraged oral rehydration - avoid nephrotoxic agents - renally dose medication - follow daily CMP #Acute encephalopathy, resolved #Chronic anemia #BPH #Abdominal aneurysm s/p stent placement #Hypothyroidism #History of intestinal cancer s/p ileostomy - management per primary team Plan of care discussed with attending Dr. Banks. Naomi Hernandez MD, PGY 1. Attending Provider Attestation/Addendum Patient seen and examined with resident physician Dr. Salgado. Note reviewed, agree with findings and recommendations. Creatinine seems to be improving. Continue gentle fluids. Pending placement.
[2024-09-13] MEDS: OLANZapine INJ 5 MG, Sterile Water 2.1 ML IV (23:20)
[2024-09-14] VITALS (9 sets, daily range): BP systolic 145–185; BP diastolic 77–95; PULSE 49–105; RESP 15–19; TEMP 36.4–36.9; O2SAT 93–96
[2024-09-14] MEDS: LEVOTHYROXINE SODIUM 112 MCG TABLET PO (05:29)
[2024-09-14 07:32] LABS: Basophils % (Auto) 1 % (0-2.5); Eosinophils # (Auto) 0.2 Thou/mm3 (0.0-0.5); Eosinophils % (Auto) 3 % (0-10); Hematocrit 37.2 % (41.0-53.0); Hemoglobin 12.9 g/dL (13.5-16.0); Immature Granulocytes % (Auto) 0 % (0-0); Immature Granulocytes Auto 0.02 Thou/mm3 (0.00-0.00); Lymphocytes # (Auto) 1.2 Thou/mm3 (1.0-4.8); Lymphocytes % (Auto) 20 % (10-50); Mean Corpuscular HGB Conc 34.7 g/dl (31.0-37.0); Mean Corpuscular Volume 89 fL (80-100); Monocytes # (Auto) 0.7 Thou/mm3 (0.0-0.8); Monocytes % (Auto) 12 % (0-12); Neutrophils # (Auto) 3.9 Thou/mm3 (1.8-7.7); Neutrophils % (Auto) 65 % (37-80); Nucleated Red Blood Cell % 0 /100 WBC (0); Platelet Count 171 Thou/mm3 (140-440); RDW Standard Deviation 43.9 fL (35.1-43.9); Red Blood Count 4.16 Miln/mm3 (4.50-5.90); White Blood Count 6.1 Thou/mm3 (3.8-10.6)
[2024-09-14 07:37] LABS: Alanine Aminotransferase 27 U/L (10-49); Albumin, Serum 3.9 gm/dL (3.4-4.8); Albumin/Globulin Ratio 1.4 (1.2-2.2); Alkaline Phosphatase 73 U/L (46-116); Anion Gap 7 (7-16); Aspartate Amino Transferase 38 U/L (0-34); BUN/Creatinine Ratio 16 Ratio (12-20); Bilirubin,Total 0.7 mg/dL (0.3-1.2); Blood Urea Nitrogen 25 mg/dL (9-23); Calcium 9.2 mg/dL (8.3-10.6); Calcium (Corrected) 9.3 mg/dL (8.5-10.1); Carbon Dioxide 27.1 mMol/L (20.0-31.0); Chloride 106 mMol/L (98-107); Creatinine (Component) 1.6 mg/dL (0.6-1.3); Estimated Creatinine Clearance 42.3 mL/min (>60); Globulin 2.7 gm/dL (2.3-3.5); Glucose 99 mg/dL (74-106); Magnesium 2.1 mg/dL (1.6-2.6); Osmolality,Calculated 283 (275-295); Phosphorous 2.1 mg/dL (2.4-5.1); Potassium 3.2 mMol/L (3.4-5.1); Sodium 140 mMol/L (136-145); Total Protein 6.6 gm/dL (5.7-8.2); eGFR 42 See Note
[2024-09-14] MEDS: ACETAMINOPHEN 325 MG TABLET 650 MG PO ×3 (08:23→21:45)
[2024-09-14] MEDS: POTASSIUM CHLORIDE 20 mEq TABCR 40 MEQ PO (08:23)
[2024-09-14] MEDS: TAMSULOSIN HCL 0.4 MG CAPSULE PO (08:23)
[2024-09-14] MEDS: FINASTERIDE 5 MG TABLET PO (08:24)
[2024-09-14] MEDS: HEPARIN SOD INJ 5000 UNIT/ML VIAL SC ×2 (08:24→21:44)
--- NOTE | 2024-09-14 09:07 | PC.SS ---
Follow up note: Patient was placed on restraints last night due to being combative per physician. Patient may be ready for d/c by weekend. SS left mssg for [facility] on . D/c weekend if facility agreeable. POA is [place]. Patient will need gurney transport.
--- NOTE | 2024-09-14 11:05 | PD.RESPRO ---
Documentation for date of: 09/14/24 Subjective Subjective Interval history: Patient seen and examined at bedside this morning. Overnight patient was noted to be pulling at colostomy and IV lines. He was reoriented and history of team tried Zyprexa x 1, however patient was still agitated, therefore they placed him in 24-hour restraints. This morning patient is lethargic and sleepy, falling asleep during exam. He denies having any complaints at this time and is pleasantly confused. Will schedule Seroquel for 8 PM tonight and hopefully avoid bilateral restraints. Vitals, labs reviewed. Potassium repleted. Creatinine improving. Echo resulted with EF 55-60%. Exam Vital Signs Temp Pulse Resp BP Pulse Ox O2 Del Method 97.7 F 49 L 16 179/83 H 93 L Room Air 09/14/24 07:59 09/14/24 07:59 09/14/24 07:59 09/14/24 07:59 09/14/24 07:59 09/14/24 07:59 Narrative Exam Gen: AAOx2 (name, ) HEENT: NCAT, PERRLA, EOMI, MMM, no LAD CVS: normal S1, S2. RRR. No MRG Resp: CTA B/L. No rhonchi, rales, crackles or wheezing Abd: soft, non-tender, non-distended. BS+ in all 4 quadrants. Colostomy noted with output MSK: Good ROM in BUE & BLE. No edema or rash. Neuro: CN II-XII grossly intact. No focal deficits Objective Labs 09/15/24 04:02 09/15/24 04:02 Labs: Laboratory Results - last 24 hr 09/13/24 09/14/24 04:34 06:50 WBC 6.1 RBC 4.16 L Hgb 12.9 L Hct 37.2 L MCV 89 MCH 31.0 MCHC 34.7 RDW Std Deviation 43.9 Plt Count 171 Neut % (Auto) 65 Lymph % (Auto) 20 [place] % (Auto) 12 Eos % (Auto) 3 Baso % (Auto) 1 Neut # (Auto) 3.9 Lymph # (Auto) 1.2 [place] # (Auto) 0.7 Eos # (Auto) 0.2 Baso # (Auto) 0.0 Immature Gran # (Auto) 0.02 H Absolute Nucleated RBC 0.00 Immature Gran % 0 Nucleated RBC % 0 Sodium 140 Potassium 3.2 L Chloride 106 Carbon Dioxide 27.1 Anion Gap 7 BUN 25 H Creatinine 1.6 H Estim Creat Clear Calc 42.3 L eGFR 42 L BUN/Creatinine Ratio 16 Glucose 99 Calculated Osmolality 283 Calcium 9.2 Corrected Calcium 9.3 Phosphorus 2.1 L Magnesium 2.1 TIBC 288 Iron Saturation 20 Unsat Iron Binding 230 Total Bilirubin 0.7 AST 38 H ALT 27 Alkaline Phosphatase 73 Total Protein 6.6 Albumin 3.9 Globulin 2.7 Albumin/Globulin Ratio 1.4 Prostate Specific Ag < 0.10 Quality Measures Quality Measures VTE prophylaxis Advance care planning discussed with:: patient Assessment & Plan Assessment Current Active Medications: Generic Name Dose Route Start Last Admin Trade Name Freq PRN Reason Stop Dose Admin Acetaminophen 650 mg 09/13/24 14:15 09/14/24 08:23 Acetaminophen 325 Mg Tablet PO 10/13/24 14:14 650 mg Q6H RAUDEL Administration Finasteride 5 mg 09/12/24 09:00 09/14/24 08:24 Finasteride 5 Mg Tablet PO 10/12/24 08:59 5 mg QDAY RAUDEL Administration Heparin Sodium (Porcine) 5,000 unit 09/12/24 09:00 09/14/24 08:24 Heparin Sod Inj 5000 Unit/Ml Vial SC 09/26/24 08:59 5,000 unit Q12HR RAUDEL Administration Levothyroxine Sodium 112 mcg 09/12/24 06:00 09/14/24 05:29 Levothyroxine Sodium 112 Mcg Tablet PO 10/12/24 05:59 112 mcg ACBR RAUDEL Administration Melatonin 3 mg 09/13/24 21:00 09/13/24 21:34 Melatonin 3 Mg Tablet PO 10/13/24 20:59 Not Given HS RAUDEL Ondansetron HCl 4 mg 09/12/24 01:50 Ondansetron Inj 2 Mg/Ml Inj 2 Ml IV 10/12/24 01:49 Q6H PRN NAUSEA OR VOMITING Protocol Quetiapine Fumarate 25 mg 09/14/24 20:00 Quetiapine Fumarate 25 Mg Tablet PO 10/14/24 19:59 HS RAUDEL Tamsulosin HCl 0.4 mg 09/12/24 09:00 09/14/24 08:23 Tamsulosin Hcl 0.4 Mg Capsule PO 10/12/24 08:59 0.4 mg QDAY RAUDEL Administration Plan In summary: 84-year-old male senting with altered mental status, admitted for acute encephalopathy workup. PMHx of CKD, AAA s/p aortic stent, BPH, hypothyroidism, colon cancer s/p partial bowel resection with ileostomy, nephrolithiasis. Acute encephalopathy likely secondary to dehydration ?Dementia vs. delirium Complains of 2 weeks of worsening weakness, having to use a cane to get around his house. Likely secondary to dehydration. CT head neck negative for acute pathology, denies fall or head traum, no focal neurologic deficits on exam, AOA x 4. No acute metabolic abnormality. No evidence of arrhythmia. No reported seizure. Less likely infectious although patient complains of cough, will follow-up with CXR, however he is afebrile without leukocytosis. No signs of encephalitis or meningitis. Urine negative for UTI. Toxicology screen negative. No evidence of hypoxemia or hypoglycemia. No sign of of CHF, lungs, no volume overload, BNP 40. ? Anticipate improvement with rehydration ? CXR: Basilar bronchitis pattern ? Recommended outpatient diagnosis for possible dementia ? Will try Seroquel at bedtime ? 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 Pending bilateral renal ultrasound. Nephrology on board. Anticipate improvement with rehydration. ? Daily CMP: Creatinine downtrending, 1.6 ? Renally dose meds, avoid overdiuresis and NEPHROTOXINS ? Nephrology consulted, appreciate recommendations: Obtain renal artery ultrasound (negative for stenosis), continue IV fluids for prerenal SHEREEN Asymptomatic bradycardia, improved Overnight, HR noted to be in 30s, improved to mid 40-50s, patient otherwise asymptomatic. Denies history of loss of consciousness, palpitations or syncope. Currently HR in 60s. EKG sinus, troponin ordered which were negative. ? Echo: Normal LV size, function with a EF 55-60%. Mild RV dilatation with normal RV function. Mild AV sclerosis with mild aortic regurg, trace mitral and trace tricuspid regurg. ? Follow-up outpatient with PCP, consider Holter monitor Acute transaminitis, improved Likely ischemic hepatopathy 2/2 dehydration peak AST 52, ALT normal. Nontender abdomen on exam, no signs or symptoms of cirrhosis, or biliary obstruction. No alcohol use. Anticipate improvement with fluid resuscitation. ? Daily CMP ? Consider hepatitis panel if no improvement in LFTs. T11 fracture Pain control with Tylenol as needed History of abdominal aortic aneurysm S/p aortic stent No aortic bruits, no complaints of abdominal pain, intact bilateral LE pulses ? Continued home METOPROLOL 25 mg daily Subclinical hypothyroidism TSH 5.33, free T4 1.38. Less likely to be contributing to acute encephalopathy ? Continue home LEVOTHYROXINE 112 mcg AC BR ? Recommended outpatient follow-up Chronic normocytic anemia Hgb 11.5, baseline around 13-14 No signs of active bleed. Denies dark stool, hematuria, hematemesis or hemoptysis. ? Daily CBC ? Transfuse if Hgb <7 BPH No signs or symptoms of urinary retention ? Continue home FINASTERIDE 5 mg daily ? Continue home TAMSULOSIN 0.4 mg daily Elevated lactic dehydrogenase LD 324. ? Continue to monitor ? PSA negative Epiphora (increased lacrimation) Noted on exam, increased clear lacrimation bilaterally, nonpurulent, without conjunctival injection or swelling of eyelids infection. Patient states symptoms ongoing for 2+ weeks. Possible allergic versus viral conjunctivitis. No signs of facial palsy or cranial nerve damage. Intact vision bilaterally. ? Eye care ? Artificial tears ? Recommended outpatient ophthalmology follow-up History of severe diverticulitis S/p partial bowel resection with ileostomy No signs of worsening symptoms, no abnormal weight loss, no B symptoms. ? Recommended low fiber diet ? Follow-up outpatient as needed Health maintenance Diet: Renal, low fiber GI prophylaxis: Not indicated DVT prophylaxis: HEPARIN Antibiotics: None CODE STATUS: Limited code, DO NOT INTUBATE Disposition: Pending improvement on SHEREEN, anticipate DC in 24 hours Patient seen and care discussed with my attending Dr. Christina. Iker Peter MD PGY-3 Attending Provider Attestation/Addendum I reviewed labs, imaging, EKG, home medications and prior available records. Face to face evaluation was performed by me. I have personally examined the patient and discussed assessment and plan with the IM team. I reviewed the resident note and agree with the plan with exceptions as below. Acute encephalopathy Acute delirium SHEREEN on CKD T11 vertebral fracture Asymptomatic bradycardia History of AAA status post stenting Hypothyroidism BPH Status post colostomy Patient tried to his lines, received Zyprexa. Order quetiapine. Required restraints overnight. Remove restraints. Monitor mental status: Concern for early dementia given the reports of progressive decline over the last few weeks Start IV hydration. Monitor kidney function. Avoid nephrotoxins. Renally dosed medications. No renal artery stenosis on the arterial duplex. No need to transfer. Supportive care for the compression fracture. Management of pain as needed. Ordered PT evaluation. Low fiber diet given the colostomy.
--- NOTE | 2024-09-14 15:20 | PD.RESPRO ---
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 Patient has been living at home along. ED course: Blood pressure was 167/80, heart rate 69, afebrile, saturating well on room air. Labs showed WBC 9.7, hemoglobin 13.1, hematocrit 38, sodium 139, potassium 4.1, chloride 105, bicarb 25.8, BUN 39, creatinine 2.3, EGFR 27, glucose 117, LDH 324. In June 2024 BUN was 15, creatinine 1.3, EGFR 54. UA and U tox were unremarkable. Head CT was limited study, negative for acute stroke or fractures, cervical CT Limited study due to patient's motion, no gross fracture. Abdominal pelvic CT showed aortoiliac endoluminal stent with 6.3 cm infrarenal abdominal aortic aneurysm, subacute severe fracture of T11 vertebral body, small bowel loops partially incarcerated with early small bowel obstruction. Patient was started on fluids, received 1 L of normal saline and receives maintenance fluid at 80 mL/h. POA requested patient to be transferred back to [facility] hospital where he did his aortic aneurysm surgery, transfer is not accepted at the moment. Renal Doppler was ordered to assess kidney vessels. Veterinarian Epidemiologist Dr. Banks was consulted for SHEREEN treatment and management. 09/12/2024: Patient seen and examined by the bedside in the ED. He reports feeling short of breath, saturates well on room air, no tachypnea, no orthopnea. He is AAOx3, reports feeling short of breath, denies headache, chest pain, chest pressure, abdominal pain, weakness, vision changes. He denies smoking and alcohol use. Blood pressure 122/61. Labs showed WBC 7, hemoglobin 11.5, hematocrit 34.3, platelets 141. Sodium 137, potassium 4.1, carbon dioxide 22.2, BUN 32, creatinine 1.9, EGFR 34, AST 52, ALT 22. Hemoglobin decreased together with hematocrit which could be the sign of hemodilution due to fluid therapy. Kidney functions has improved since yesterday, will continue with fluids. 09/13/24: Patient was seen and examined by the bedside. No acute overnight events. Patient is feeling well. Labs showed sodium 140, potassium 3.5, chloride 108, BUN 29, creatinine 1.7, EGFR 39. Fluids were discontinued yesterday, kidney function continued to improve. Patient continues to have urine output, amount is unmeasured. 09/14/24: Patient was seen and examined by the bedside. Overnight patient was confused and agitated, was placed on bilateral wrist restraints. Will be started on quetiapine in the evening for agitation. Will try to reorient the patient and maintain the day-night cycle. Labs showed sodium 140, potassium 3.2, chloride 106, BUN 25, creatinine 1.6, EGFR 42.3. Kidney functions continue to improve. patient is pending SNF placement. Exam Vital Signs Temp Pulse Resp BP Pulse Ox O2 Del Method 98.5 F 105 H 17 185/88 H 95 Room Air 09/14/24 12:00 09/14/24 12:00 09/14/24 12:00 09/14/24 12:00 09/14/24 12:00 09/14/24 07:59 Narrative Exam Gen: Disheveled elderly male. Bilateral wrist restraints. HEENT: NCAT, PERRLA, EOMI, MMM, anicteric conjunctivae. CVS: normal S1 and S2. RRR. No M/R/G. Resp: CTA B/L. No rhonchi, rales, crackles or wheezing. Abd: soft, non-tender, non-distended. BS+ in all 4 quadrants. Ileostomy with bag in place, site unremarkable. MSK: Good ROM in BUE & BLE. No edema or rash. Neuro: CN II-XII grossly intact. Strength 5/5 in BUE & BLE. Alert and oriented x3. Psych: appropriate mood and affect. Objective Labs 09/14/24 06:50 09/14/24 06:50 Labs: Laboratory Results - last 24 hr 09/14/24 06:50 WBC 6.1 RBC 4.16 L Hgb 12.9 L Hct 37.2 L MCV 89 MCH 31.0 MCHC 34.7 RDW Std Deviation 43.9 Plt Count 171 Neut % (Auto) 65 Lymph % (Auto) 20 [place] % (Auto) 12 Eos % (Auto) 3 Baso % (Auto) 1 Neut # (Auto) 3.9 Lymph # (Auto) 1.2 [place] # (Auto) 0.7 Eos # (Auto) 0.2 Baso # (Auto) 0.0 Immature Gran # (Auto) 0.02 H Absolute Nucleated RBC 0.00 Immature Gran % 0 Nucleated RBC % 0 Sodium 140 Potassium 3.2 L Chloride 106 Carbon Dioxide 27.1 Anion Gap 7 BUN 25 H Creatinine 1.6 H Estim Creat Clear Calc 42.3 L eGFR 42 L BUN/Creatinine Ratio 16 Glucose 99 Calculated Osmolality 283 Calcium 9.2 Corrected Calcium 9.3 Phosphorus 2.1 L Magnesium 2.1 Total Bilirubin 0.7 AST 38 H ALT 27 Alkaline Phosphatase 73 Total Protein 6.6 Albumin 3.9 Globulin 2.7 Albumin/Globulin Ratio 1.4 Quality Measures Quality Measures VTE prophylaxis Advance care planning discussed with:: other Assessment & Plan Assessment Current Active Medications: Generic Name Dose Route Start Last Admin Trade Name Freq PRN Reason Stop Dose Admin Acetaminophen 650 mg 09/13/24 14:15 09/14/24 15:10 Acetaminophen 325 Mg Tablet PO 10/13/24 14:14 650 mg Q6H RAUDEL Administration Finasteride 5 mg 09/12/24 09:00 09/14/24 08:24 Finasteride 5 Mg Tablet PO 10/12/24 08:59 5 mg QDAY RAUDEL Administration Heparin Sodium (Porcine) 5,000 unit 09/12/24 09:00 09/14/24 08:24 Heparin Sod Inj 5000 Unit/Ml Vial SC 09/26/24 08:59 5,000 unit Q12HR RAUDEL Administration Levothyroxine Sodium 112 mcg 09/12/24 06:00 09/14/24 05:29 Levothyroxine Sodium 112 Mcg Tablet PO 10/12/24 05:59 112 mcg ACBR RAUDEL Administration Melatonin 3 mg 09/13/24 21:00 09/13/24 21:34 Melatonin 3 Mg Tablet PO 10/13/24 20:59 Not Given HS RAUDEL Ondansetron HCl 4 mg 09/12/24 01:50 Ondansetron Inj 2 Mg/Ml Inj 2 Ml IV 10/12/24 01:49 Q6H PRN NAUSEA OR VOMITING Protocol Quetiapine Fumarate 25 mg 09/14/24 20:00 Quetiapine Fumarate 25 Mg Tablet PO 10/14/24 19:59 HS RAUDEL Tamsulosin HCl 0.4 mg 09/12/24 09:00 09/14/24 08:23 Tamsulosin Hcl 0.4 Mg Capsule PO 10/12/24 08:59 0.4 mg QDAY [facility] Administration Plan The patient is a 84-year-old male with a previous medical history of CKD, abdominal aortic aneurysm status post aortic stent placement ordered approximately 3-4 weeks ago, BPH, hypothyroidism, 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 Patient has been living at home along. Nephrology was consulted due to SHEREEN. #SHEREEN on CKD IIIa, improving Prerenal in the setting of dehydration and poor oral intake due to patient not being able to take care of himself. Renal Doppler ultrasound was unremarkable, negative for renal artery stenosis. Hard to assess baseline creatinine level. In June 2024 BUN was 15, creatinine 1.3, EGFR 54. 09/12/24 BUN:Cr ratio=17 Plan: -Encouraged oral rehydration - avoid nephrotoxic agents - renally dose medication - follow daily CMP #Acute encephalopathy, improving #Chronic anemia #BPH #Abdominal aneurysm s/p stent placement #Hypothyroidism #History of intestinal cancer s/p ileostomy - management per primary team Plan of care discussed with attending Dr. Banks. Naomi Hernandez MD, PGY 1. Attending Provider Attestation/Addendum Patient seen and examined with resident physician Dr. Salgado. Note reviewed, agree with findings and recommendations. Patient admitted with altered mental status, SHEREEN. Prerenal azotemia most likely. Agree with fluids. Creatinine improving Will monitor closely.
[2024-09-14] MEDS: POLYETHYLENE GLYCOL 17 GM PACKET PO (18:30)
[2024-09-14] MEDS: MELATONIN 3 MG TABLET PO (21:44)
[2024-09-14] MEDS: QUEtiapine FUMARATE 25 MG TABLET PO (21:45)
--- NOTE | 2024-09-14 23:33 | PC.NURSE ---
Notify MD of pt's BP 176/86. MD Bhagat said that he will check the chart. No orders made at this time.
[2024-09-14] MEDS: hydrALAZINE INJ 20 MG/ML VIAL 10 MG IV (23:54)
[2024-09-15] VITALS: BP 172/83; PULSE 71; RESP 16; TEMP 36.2; O2SAT 97
[2024-09-15] MEDS: ACETAMINOPHEN 325 MG TABLET 650 MG PO ×3 (02:02→13:35)
[2024-09-15 04:00] VITALS: BP 163/75; PULSE 59; RESP 22; TEMP 36.3; O2SAT 96
[2024-09-15] MEDS: LEVOTHYROXINE SODIUM 112 MCG TABLET PO (05:14)
[2024-09-15 05:21] LABS: Basophils # (Auto) 0.1 Thou/mm3 (0.0-0.2); Basophils % (Auto) 1 % (0-2.5); Eosinophils # (Auto) 0.3 Thou/mm3 (0.0-0.5); Eosinophils % (Auto) 5 % (0-10); Hematocrit 39.6 % (41.0-53.0); Hemoglobin 13.6 g/dL (13.5-16.0); Immature Granulocytes % (Auto) 0 % (0-0); Immature Granulocytes Auto 0.02 Thou/mm3 (0.00-0.00); Lymphocytes # (Auto) 1.1 Thou/mm3 (1.0-4.8); Lymphocytes % (Auto) 18 % (10-50); Mean Corpuscular HGB Conc 34.3 g/dl (31.0-37.0); Mean Corpuscular Hemoglobin 30.5 pg (25.0-35.0); Mean Corpuscular Volume 89 fL (80-100); Monocytes # (Auto) 0.7 Thou/mm3 (0.0-0.8); Monocytes % (Auto) 11 % (0-12); Neutrophils # (Auto) 3.9 Thou/mm3 (1.8-7.7); Neutrophils % (Auto) 64 % (37-80); Nucleated Red Blood Cell % 0 /100 WBC (0); Platelet Count 201 Thou/mm3 (140-440); RDW Standard Deviation 44.7 fL (35.1-43.9); Red Blood Count 4.46 Miln/mm3 (4.50-5.90); White Blood Count 6.1 Thou/mm3 (3.8-10.6)
[2024-09-15 05:51] LABS: Alanine Aminotransferase 24 U/L (10-49); Albumin/Globulin Ratio 1.4 (1.2-2.2); Alkaline Phosphatase 75 U/L (46-116); Anion Gap 8 (7-16); Aspartate Amino Transferase 26 U/L (0-34); BUN/Creatinine Ratio 13 Ratio (12-20); Bilirubin,Total 0.7 mg/dL (0.3-1.2); Blood Urea Nitrogen 20 mg/dL (9-23); Calcium 9.2 mg/dL (8.3-10.6); Calcium (Corrected) 9.2 mg/dL (8.5-10.1); Carbon Dioxide 23.7 mMol/L (20.0-31.0); Chloride 107 mMol/L (98-107); Creatinine (Component) 1.5 mg/dL (0.6-1.3); Estimated Creatinine Clearance 45.1 mL/min (>60); Globulin 2.8 gm/dL (2.3-3.5); Glucose 100 mg/dL (74-106); Magnesium 2.1 mg/dL (1.6-2.6); Osmolality,Calculated 280 (275-295); Phosphorous 1.9 mg/dL (2.4-5.1); Potassium 3.6 mMol/L (3.4-5.1); Sodium 139 mMol/L (136-145); Total Protein 6.8 gm/dL (5.7-8.2); eGFR 46 See Note
[2024-09-15 07:53] VITALS: BP 148/78; PULSE 60; RESP 19; TEMP 36.1; O2SAT 96
[2024-09-15 08:00] VITALS: PULSE 69
[2024-09-15] MEDS: POLYETHYLENE GLYCOL 17 GM PACKET PO (08:11)
[2024-09-15] MEDS: HEPARIN SOD INJ 5000 UNIT/ML VIAL SC (08:11)
[2024-09-15] MEDS: TAMSULOSIN HCL 0.4 MG CAPSULE PO (08:12)
[2024-09-15] MEDS: FINASTERIDE 5 MG TABLET PO (08:13)
--- NOTE | 2024-09-15 09:43 | ESPR_ITS ---
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 Patient has been living at home along. ED course: Blood pressure was 167/80, heart rate 69, afebrile, saturating well on room air. Labs showed WBC 9.7, hemoglobin 13.1, hematocrit 38, sodium 139, potassium 4.1, chloride 105, bicarb 25.8, BUN 39, creatinine 2.3, EGFR 27, glucose 117, LDH 324. In June 2024 BUN was 15, creatinine 1.3, EGFR 54. UA and U tox were unremarkable. Head CT was limited study, negative for acute stroke or fractures, cervical CT Limited study due to patient's motion, no gross fracture. Abdominal pelvic CT showed aortoiliac endoluminal stent with 6.3 cm infrarenal abdominal aortic aneurysm, subacute severe fracture of T11 vertebral body, small bowel loops partially incarcerated with early small bowel obstruction. Patient was started on fluids, received 1 L of normal saline and receives maintenance fluid at 80 mL/h. POA requested patient to be transferred back to [facility] hospital where he did his aortic aneurysm surgery, transfer is not accepted at the moment. Renal Doppler was ordered to assess kidney vessels. Customer Agent Dr. Banks was consulted for SHEREEN treatment and management. 09/12/2024: Patient seen and examined by the bedside in the ED. He reports feeling short of breath, saturates well on room air, no tachypnea, no orthopnea. He is AAOx3, reports feeling short of breath, denies headache, chest pain, chest pressure, abdominal pain, weakness, vision changes. He denies smoking and alcohol use. Blood pressure 122/61. Labs showed WBC 7, hemoglobin 11.5, hematocrit 34.3, platelets 141. Sodium 137, potassium 4.1, carbon dioxide 22.2, BUN 32, creatinine 1.9, EGFR 34, AST 52, ALT 22. Hemoglobin decreased together with hematocrit which could be the sign of hemodilution due to fluid therapy. Kidney functions has improved since yesterday, will continue with fluids. 09/13/24: Patient was seen and examined by the bedside. No acute overnight events. Patient is feeling well. Labs showed sodium 140, potassium 3.5, chloride 108, BUN 29, creatinine 1.7, EGFR 39. Fluids were discontinued yesterday, kidney function continued to improve. Patient continues to have urine output, amount is unmeasured. 09/14/24: Patient was seen and examined by the bedside. Overnight patient was confused and agitated, was placed on bilateral wrist restraints. Will be started on quetiapine in the evening for agitation. Will try to reorient the patient and maintain the day-night cycle. Labs showed sodium 140, potassium 3.2, chloride 106, BUN 25, creatinine 1.6, EGFR 42.3. Kidney functions continue to improve. patient is pending SNF placement. 09/15/24: Patient seen at bedside. Patient is sleepy drowsy, currently on quetiapine at bedtime. Patient has poor p.o. intake recommend at least 1.5 L p.o. fluid intake, renal function has improved creatinine 1.5, BUN 20, EGFR 46. Patient is also on melatonin at bedtime. Otherwise patient's renal function has improved, pending discharge to [facility]. Encourage p.o. intake of water. Exam Vital Signs Temp Pulse Resp BP Pulse Ox O2 Del Method 96.9 F 60 19 148/78 H 96 Room Air 09/15/24 07:53 09/15/24 07:53 09/15/24 07:53 09/15/24 07:53 09/15/24 07:53 09/15/24 07:53 Narrative Exam Gen: Disheveled elderly male. Bilateral wrist restraints. HEENT: NCAT, PERRLA, EOMI, MMM, anicteric conjunctivae. CVS: normal S1 and S2. RRR. No M/R/G. Resp: CTA B/L. No rhonchi, rales, crackles or wheezing. Abd: soft, non-tender, non-distended. BS+ in all 4 quadrants. Ileostomy with bag in place, site unremarkable. MSK: Good ROM in BUE & BLE. No edema or rash. Neuro: CN II-XII grossly intact. Strength 5/5 in BUE & BLE. Alert and oriented x3. Psych: appropriate mood and affect. Objective Labs 09/15/24 04:02 09/15/24 04:02 Labs: Laboratory Results - last 24 hr 09/15/24 04:02 WBC 6.1 RBC 4.46 L Hgb 13.6 Hct 39.6 L MCV 89 MCH 30.5 MCHC 34.3 RDW Std Deviation 44.7 H Plt Count 201 D Neut % (Auto) 64 Lymph % (Auto) 18 Yancey % (Auto) 11 Eos % (Auto) 5 Baso % (Auto) 1 Neut # (Auto) 3.9 Lymph # (Auto) 1.1 Yancey # (Auto) 0.7 Eos # (Auto) 0.3 Baso # (Auto) 0.1 Immature Gran # (Auto) 0.02 H Absolute Nucleated RBC 0.00 Immature Gran % 0 Nucleated RBC % 0 Sodium 139 Potassium 3.6 Chloride 107 Carbon Dioxide 23.7 Anion Gap 8 BUN 20 Creatinine 1.5 H Estim Creat Clear Calc 45.1 L eGFR 46 L BUN/Creatinine Ratio 13 Glucose 100 Calculated Osmolality 280 Calcium 9.2 Corrected Calcium 9.2 Phosphorus 1.9 L Magnesium 2.1 Total Bilirubin 0.7 AST 26 ALT 24 Alkaline Phosphatase 75 Total Protein 6.8 Albumin 4.0 Globulin 2.8 Albumin/Globulin Ratio 1.4 Quality Measures Quality Measures VTE prophylaxis Advance care planning discussed with:: patient Assessment & Plan Assessment Current Active Medications: Generic Name Dose Route Start Last Admin Trade Name Freq PRN Reason Stop Dose Admin Acetaminophen 650 mg 09/13/24 14:15 09/15/24 08:12 Acetaminophen 325 Mg Tablet PO 10/13/24 14:14 650 mg Q6H RAUDEL Administration Finasteride 5 mg 09/12/24 09:00 09/15/24 08:13 Finasteride 5 Mg Tablet PO 10/12/24 08:59 5 mg QDAY RAUDEL Administration Heparin Sodium (Porcine) 5,000 unit 09/12/24 09:00 09/15/24 08:11 Heparin Sod Inj 5000 Unit/Ml Vial SC 09/26/24 08:59 5,000 unit Q12HR RAUDEL Administration Hydralazine HCl 10 mg 09/14/24 23:42 09/14/24 23:54 Hydralazine Inj 20 Mg/Ml Vial IV 10/14/24 23:41 10 mg Q6HR PRN Administration Systolic >180 and HR <70 Levothyroxine Sodium 112 mcg 09/12/24 06:00 09/15/24 05:14 Levothyroxine Sodium 112 Mcg Tablet PO 10/12/24 05:59 112 mcg ACBR RAUDEL Administration Melatonin 3 mg 09/13/24 21:00 09/14/24 21:44 Melatonin 3 Mg Tablet PO 10/13/24 20:59 3 mg HS RAUDEL Administration Ondansetron HCl 4 mg 09/12/24 01:50 Ondansetron Inj 2 Mg/Ml Inj 2 Ml IV 10/12/24 01:49 Q6H PRN NAUSEA OR VOMITING Protocol Polyethylene Glycol 17 gm 09/14/24 17:00 09/15/24 08:11 Polyethylene Glycol 17 Gm Packet PO 10/14/24 16:59 17 gm QDAY RAUDEL Administration Quetiapine Fumarate 25 mg 09/14/24 20:00 09/14/24 21:45 Quetiapine Fumarate 25 Mg Tablet PO 10/14/24 19:59 25 mg HS RAUDEL Administration Tamsulosin HCl 0.4 mg 09/12/24 09:00 09/15/24 08:12 Tamsulosin Hcl 0.4 Mg Capsule PO 10/12/24 08:59 0.4 mg QDAY RAUDEL Administration Plan The patient is a 84-year-old male with a previous medical history of CKD, abdominal aortic aneurysm status post aortic stent placement ordered approximately 3-4 weeks ago, BPH, hypothyroidism, 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 Patient has been living at home along. Nephrology was consulted due to SHEREEN. #SHEREEN on CKD IIIa, improving Prerenal in the setting of dehydration and poor oral intake due to patient not being able to take care of himself. Suspicion of high output from colostomy bag. Renal Doppler ultrasound was unremarkable, negative for renal artery stenosis. Hard to assess baseline creatinine level. In June 2024 BUN was 15, creatinine 1.3, EGFR 54. 09/12/24 BUN:Cr ratio=17 Plan: -Encouraged oral rehydration - avoid nephrotoxic agents - renally dose medication - follow daily CMP #Acute encephalopathy, improving #Chronic anemia #BPH #Abdominal aneurysm s/p stent placement #Hypothyroidism #History of intestinal cancer s/p ileostomy - management per primary team Plan of care discussed with attending Dr. Banks. Corinna Foster PGY 1. Attending Provider Attestation/Addendum Patient seen and examined with resident physician Dr. Foster. Note reviewed, agree with findings and recommendations. Patient admitted with altered mental status, SHEREEN. Prerenal azotemia most likely. Suggested to increase p.o. intake. Patient has been very sleepy. Noted on on low-dose Seroquel for agitation. Creatinine better. Pending placement. Will monitor closely.
[2024-09-15 12:00] VITALS: BP 138/87; PULSE 78; PULSE 79; RESP 19; TEMP 36.1; O2SAT 94
--- NOTE | 2024-09-15 12:26 | PC.SS ---
Addendum entered by Andressa Carreon 09/15/24 14:42: SS was contacted by [facility] in regards to ETA changed to 1600. SS informed Beti from [facility] as well as Infection Control Specialist,Violet. SS will contact Friend Victoria to update. Original Note: SS follow note; SS set up transportation with [facility] ETA was set up for 1500. SS notified Beti from [facility] as well as Decision maker, Victoria. SS will also inform patient's nurse Tamra.
--- NOTE | 2024-09-15 12:53 | PD.RESDS ---
Planned Discharge Date 09/15/24 DS: Providers Provider Date of admission: 09/12/24 09:02 Primary care physician: Peter Banks MD Admitting Provider: Ye Christina MD Attending Provider on Admission: Ye Christina MD Consults: 09/12/24 02:19 Referral Physical Therapy Routine Comment: Physician Instructions: 09/12/24 08:31 PT [Referral Physical Therapy] Stat Comment: Physician Instructions: Instructions: Please eval 09/12/24 09:03 Consult to Nephrology Routine Comment: Consulting Provider: Peter Banks 09/12/24 15:05 Health [facility]ity Referral - Knowledge Deficit Routine Comment: Positive screening for knowledge deficit needs. 09/13/24 12:07 Referral Registered Dietitian Stat Comment: Instructions: Patient had colostomy, POA stating patient need to be on low fiber diet because High fiber diet causes colostomy obstruction. Attending Provider on DC: Iker Peter MD Discharging Provider: Iker Peter MD DS: Diagnosis Problem List Completed Was Problem List Reviewed/Reconciled?: Yes Hospital Course Hospital Course Hospital course: Patient was an 84-year-old male with CKD 3B, AAA s/p stent, BPH, hypothyroidism, history of diverticulitis (versus diverticulosis?) s/p ileostomy who presented to the ED with acute encephalopathy. Of note, patient lives alone. Labs were significant for creatinine 2.3 and mildly elevated liver enzymes. Was noted to have asymptomatic bradycardia, likely secondary to home metoprolol. Home meds, other than metoprolol were resumed. He was started on IV fluids with improvement of creatinine, noted daily. Patient was evaluated by physical therapy, recommended SNF for rehab potential. Patient has been tolerating diet and having bowel movements. On 09/15, patient was deemed stable for discharge to SNF. #Acute encephalopathy, likely secondary dehydration, improving DDx includes dementia versus delirium => patient would benefit from outpatient dementia workup and evaluation from corporate counselor #Prerenal SHEREEN on CKD 3B, improving #Asymptomatic bradycardia, improved, likely related to metoprolol which was discontinued #Acute transaminitis, resolved #T11 fracture #History of AAA s/p aortic stent #Hypothyroidism #BPH #Diverticulitis s/p ileostomy #Chronic normocytic anemia Patient seen and care discussed with my attending Dr. Christina. Iker Peter MD PGY-3 Status at Discharge Cognitive/behavioral status at discharge: AAOx2 (name, ) Time Spent with Patient Time attestation: Total time spent providing and/or coordinating discharge services: Time spent: Greater than 30 minutes Exam Vital Signs Temp Pulse Resp BP Pulse Ox O2 Del Method 97.0 F 78 19 138/87 H 94 L Room Air 09/15/24 12:00 09/15/24 12:00 09/15/24 12:00 09/15/24 12:00 09/15/24 12:00 09/15/24 12:00 Narrative Exam Gen: AAOx2 (name, ), sleepy but arousable to voice HEENT: NCAT, PERRLA, EOMI, MMM, no LAD CVS: normal S1, S2. RRR. No MRG Resp: CTA B/L. No rhonchi, rales, crackles or wheezing Abd: soft, non-tender, non-distended. BS+ in all 4 quadrants. Ileostomy noted MSK: Good ROM in BUE & BLE. No edema or rash. Neuro: CN II-XII grossly intact. No focal deficits Discharge Plan Plan Patient Disposition: Xfer Skilled Nsg Fac (SNF) Patient condition on transfer: Stable Care Plan Goals: Follow up with PCP within 1-2 weeks Your metoprolol was discontinued due to low heart rate. Added amlodipine. Can have PCP increase dose to 10mg if your systolic blood pressure remains above 150 Use quetiapine at night before bed time Would advise outpatient corporate counselor follow up for medication reconciliation, and evaluate for possible underlying dementia Remainder of home meds were continued Prescriptions/Referrals Prescriptions/Med Rec: New quetiapine 25 mg Tablet 25 mg PO HS 30 Days Qty: 30 0RF amlodipine 5 mg tablet 5 mg PO QDAY 30 Days Qty: 30 0RF Continued finasteride [Proscar] 5 MG tablet 5 mg PO QDAY Qty: 0 tamsulosin [Flomax] 0.4 mg capsule 0.4 mg PO BID Qty: 0 levothyroxine 112 mcg tablet 112 mcg PO DAILY Patient Comments: TAKE 1 TABLET BY MOUTH EVERY DAY aspirin 81 mg Tablet 81 mg PO QDAY polyethylene glycol 3350 [Miralax] 17 gram/dose Powder 4 g PO QDAY Discontinued metoprolol tartrate 25 MG tablet 25 mg PO 1XD Qty: 0 Referrals: Peter Banks MD [Primary Care Provider] - Patient/Caregiver Discharge Instructions Discharge Activity: activity as tolerated Education Materials: Acute Kidney Failure Dc Print Language: Citizen Of [place] Stand Alone Forms: Arlen Award Info., Patient Portal Info Letter Discharge Order Discharge Orders: Discharge (Routine); Ordered 09/15/24 Ordered By: Iker Peter Quality Discharge Quality Measures VTE prophylaxis Attestestation MD Attestation I reviewed labs, imaging, EKG, home medications and prior available records. Face to face evaluation was performed by me. I have personally examined the patient and discussed assessment and plan with the IM team. I reviewed the resident note and agree with the plan with exceptions as below. Acute encephalopathy Acute delirium SHEREEN on CKD T11 vertebral fracture Asymptomatic bradycardia History of AAA status post stenting Hypothyroidism BPH Status post colostomy Patient is off restraints. Quetiapine as needed Monitor mental status: Concern for early dementia given the reports of progressive decline over the last few weeks Encourage oral hydration. Monitor kidney function. Avoid nephrotoxins. Renally dosed medications. No renal artery stenosis on the arterial duplex. No need to transfer. Supportive care for the compression fracture. Management of pain as needed. Ordered PT evaluation. Low fiber diet given the colostomy. Time spent is 40 minutes. More than 50% of the time was spent on patient education and coordination of care.
[2024-09-15 16:00] VITALS: BP 130/88; PULSE 72; PULSE 75; RESP 19; TEMP 36.2; O2SAT 95
== END 2024-09-15 16:35 | disposition skilled nursing facility (03) | DRG 682 ==
LOC: SERX 09-12 09:02 → SERHOLD 09-12 09:36 → S3SX 09-12 12:57 → S3NX 09-13 16:36
PROVIDERS: Registered Nurse General Practice; Student in an Organized Health Care Education/Training Program; Admitting Provider Student in an Organized Health Care Education/Training Program; Emergency Provider Emergency Medicine; PCP Internal Medicine; Visit Provider Student in an Organized Health Care Education/Training Program
DX: N17.9 Acute kidney failure, unspecified (principal); G93.41 Metabolic encephalopathy; M48.54XA Collapsed vertebra, not elsewhere classified, thoracic region, initial encounter for fracture; K56.609 Unspecified intestinal obstruction, unspecified as to partial versus complete obstruction; F03.911 Unspecified dementia, unspecified severity, with agitation; E86.0 Dehydration; N18.32 Chronic kidney disease, stage 3b; E03.9 Hypothyroidism, unspecified; D63.1 Anemia in chronic kidney disease; E03.8 Other specified hypothyroidism; N40.0 Benign prostatic hyperplasia without lower urinary tract symptoms; R00.1 Bradycardia, unspecified; Z66 Do not resuscitate; T44.7X5A Adverse effect of beta-adrenoreceptor antagonists, initial encounter; Z85.038 Personal history of other malignant neoplasm of large intestine; Z86.79 Personal history of other diseases of the circulatory system; Z93.3 Colostomy status; Z87.442 Personal history of urinary calculi; Z60.2 Problems related to living alone; Z87.19 Personal history of other diseases of the digestive system; Z78.1 Physical restraint status; Z95.818 Presence of other cardiac implants and grafts; Z79.890 Hormone replacement therapy; Z79.899 Other long term (current) drug therapy
CPT/HCPCS: 36415; 70450; 71045; 72125; 74176; 80053; 80061; 80307; 81001; 82607; 82746; 83540; 83550; 83605; 83615; 83735; 83880; 84100; 84153; 84439; 84443; 84484; 85025; 85610; 85730; 87081; 93005; 93225; 93306; 93975; 96360; 96361; 96372; 97162; 99285; A4216; J0360; J1643; J2358; J7030; A9270; J1644; J2359

== ENCOUNTER 2024-09-24 12:03 | Inpatient (IN) | payer MEDICARE, SELFPAY ==
[2024-09-24] VITALS (8 sets, daily range): BP systolic 169–183; BP diastolic 84–106; PULSE 64–88; RESP 16–20; TEMP 36.6–37.2; O2SAT 92–98; BMI 25.8; BMI 29.7
--- NOTE | 2024-09-24 12:33 | EKG_ITS ---
[facility] Test Date: 2024-09-24 Pat Name: MONI HINKLE Department: Room: - Gender: Male Med Spec: : 1940 Requested By: Joe Hightower Order Number: [id number] Reading MD: Joe Hightower Measurements Intervals [place] Rate: 69 P: 20 SD: 158 QRS: -47 QRSD: 156 T: -6 QT: 396 QTc: 427 Interpretive Statements SINUS RHYTHM RIGHT BUNDLE BRANCH BLOCK [120+ ms QRS DURATION, UPRIGHT V1, 40+ ms S IN I/aVL/V4/V5/V6] LEFT ANTERIOR FASCICULAR BLOCK [QRS AXIS <= -45, QR IN I, RS IN II] Compared to ECG 09/12/2024 17:26:27 Right bundle-branch block now present Left anterior fascicular block now present Sinus bradycardia no longer present Intraventricular conduction delay no longer present /store/S0/[id number]/ecg/[id number].pdf
--- NOTE | 2024-09-24 12:33 | XR_ITS ---
Examination: CT brain head without contrast. 2-D sagittal coronal reconstructions Date and time of exam:September 24, 2024 1337 hours INDICATIONS: Altered mental status today COMPARISON: September 11, 2024 CTDI: vol (mGy):58.9 DLP: (mGycm):1270 Technique: Multiple CT axial sections of the brain have been obtained, 5 mm slice thickness. Contrast has not been administered. 2-D sagittal, coronal reconstructions have been obtained Low dose protocols were performed. One or more of the following dose reduction techniques were used; automated exposure control, adjustment of the mA and/or KV according to patient size, use of iterative reconstruction technique. Findings: Mild ventricular enlargement Intra-axial or extra-axial hemorrhage density is not seen. No mass effect or midline shift Basal cisterns are not remarkable. Fourth ventricle is midline. Cranial vault intact. Significant frontal, ethmoid, maxillary antral and sphenoid sinusitis Impression: Negative for acute hemorrhage, mass effect or midline shift
--- NOTE | 2024-09-24 12:33 | XR_ITS ---
Examination: AP chest single view TECHNIQUE: Sitting portable AP chest single view Exam date and time: September 24, 2024 1249 hours Comparison 12/12/2023 INDICATIONS: Altered mental status today. FINDINGS: Mild prominence left ventricle Partial visualization abdominal aortic stent Mild vascular congestion No lobar pneumonia No aspiration pneumonia IMPRESSION: No aspiration pneumonia
[2024-09-24 12:51] LABS: Lactate (Lactic Acid) 0.9 mMol/L (0.4-2.0)
[2024-09-24] MEDS: SODIUM CHLORIDE 0.9% 1000 ML 1,000 ML 999 ML IV (12:52)
[2024-09-24 13:08] LABS: Basophils % (Auto) 0 % (0-2.5); Eosinophils % (Auto) 1 % (0-10); Hematocrit 41.3 % (41.0-53.0); Hemoglobin 14.4 g/dL (13.5-16.0); Immature Granulocytes % (Auto) 0 % (0-0); Immature Granulocytes Auto 0.02 Thou/mm3 (0.00-0.00); Lymphocytes # (Auto) 1.4 Thou/mm3 (1.0-4.8); Lymphocytes % (Auto) 22 % (10-50); Mean Corpuscular HGB Conc 34.9 g/dl (31.0-37.0); Mean Corpuscular Hemoglobin 31.2 pg (25.0-35.0); Mean Corpuscular Volume 90 fL (80-100); Monocytes # (Auto) 0.8 Thou/mm3 (0.0-0.8); Monocytes % (Auto) 13 % (0-12); Neutrophils # (Auto) 4.2 Thou/mm3 (1.8-7.7); Neutrophils % (Auto) 65 % (37-80); Nucleated Red Blood Cell % 0 /100 WBC (0); Platelet Count 169 Thou/mm3 (140-440); RDW Standard Deviation 44.3 fL (35.1-43.9); Red Blood Count 4.61 Miln/mm3 (4.50-5.90); White Blood Count 6.5 Thou/mm3 (3.8-10.6)
[2024-09-24 13:34] LABS: Alanine Aminotransferase 14 U/L (10-49); Albumin, Serum 4.2 gm/dL (3.4-4.8); Albumin/Globulin Ratio 1.4 (1.2-2.2); Alkaline Phosphatase 71 U/L (46-116); Anion Gap 8 (7-16); Aspartate Amino Transferase < 8 U/L (0-34); BUN/Creatinine Ratio 16 Ratio (12-20); Bilirubin,Total 0.4 mg/dL (0.3-1.2); Blood Urea Nitrogen 25 mg/dL (9-23); Calcium 8.9 mg/dL (8.3-10.6); Calcium (Corrected) 8.9 mg/dL (8.5-10.1); Carbon Dioxide 25.4 mMol/L (20.0-31.0); Chloride 101 mMol/L (98-107); Creatinine (Component) 1.6 mg/dL (0.6-1.3); Estimated Creatinine Clearance 35.5 mL/min (>60); Glucose 100 mg/dL (74-106); Osmolality,Calculated 272 (275-295); Potassium 3.6 mMol/L (3.4-5.1); Procalcitonin 0.16 ng/ml (0.0-0.49); Sodium 134 mMol/L (136-145); Total Protein 7.2 gm/dL (5.7-8.2); Troponin I 0.024 ng/mL (0.0-0.045); eGFR 42 See Note
[2024-09-24 13:39] LABS: Partial Thromboplastin Time 29.4 Seconds (22.0-36.0)
--- NOTE | 2024-09-24 13:48 | PD.EDAMS ---
Altered Mental Status RME/HPI General Chief Complaint: Altered Mental Status Stated Complaint: AMS Time Seen by Provider: 09/24/24 12:26 Arrival date/time: 09/24/24 12:03 RME / HPI RME / HPI narrative: 84-year-old male with unknown medical history who presents with lethargy and altered mental status per /daughhter. Patient is slow to respond, lethargic, but does not report any pains or issues with yes or no questions. History limited due to medical status Related Data Home Medications ?Medication ?Instructions ?Recorded ?Confirmed finasteride 5 mg tablet (Proscar) 5 mg PO QDAY #0 tabs 07/31/15 09/14/24 tamsulosin 0.4 mg capsule (Flomax) 0.4 mg PO BID #0 caps 12/27/23 09/14/24 aspirin 81 mg tablet 81 mg PO QDAY 09/12/24 09/14/24 levothyroxine 112 mcg tablet 112 mcg PO DAILY 09/12/24 09/14/24 polyethylene glycol 3350 17 4 g PO QDAY 09/14/24 09/14/24 gram/dose oral powder (Miralax) Previous Rx's ?Medication ?Instructions ?Recorded amlodipine 5 mg tablet 5 mg PO QDAY 30 days #30 tabs 09/15/24 quetiapine 25 mg tablet 25 mg PO HS 30 days #30 tabs 09/15/24 Allergies Allergy/AdvReac Type Severity Reaction Status Date / Time morphine Allergy Severe Confusion Verified 09/13/24 12:12 corn Allergy Intermediate Abdominal Verified 09/13/24 12:12 Pain peas Allergy Intermediate Abdominal Verified 09/13/24 12:12 Pain Review of Systems Review of Systems ROS Unobtainable: unobtainable due to mental status ED Exam Narrative Physical exam: Patient is awake but does not answer questions appropriately. He seems to be distracted off to the distance. GENERAL APPEARANCE: AxOx4, generally well-appearing, no acute distress. HEENT: NC, AT. MMM. EOMI, clear conjunctiva, oropharynx clear. NECK: Supple without lymphadenopathy. No stiffness or restricted ROM. HEART: Normal rate and regular rhythm, normal S1/S1, no m/r/g LUNGS: CTAB, moving air well. No crackles or wheezes are heard. ABDOMEN: Soft, nontender, nondistended with good bowel sounds heard. BACK: No midline C/T/L spine pain or deformity, No CVAT, no obvious deformity. EXTREMITIES: Without cyanosis, clubbing or edema. MUSCULOSKELETAL: FROM of all major joints, no chest tenderness NEUROLOGICAL: Grossly nonfocal. Alert and oriented, moving all 4 extremities. CN not formally tested but appear grossly intact. Observed to ambulate with normal gait. Skin: Warm and dry without any rash. Course Course Course Narrative: Patient continues to be altered, attempted to hit nursing staff, soft restraints were applied for patient and staff safety. Quality Measures none Orders Category Date Time Status Bedside COVID-19 Antigen Test NOW Care 09/24/24 12:33 Active Bedside Influenza A&B Antigen Test NOW Care 09/24/24 12:[address] Screening NOW Care 09/24/24 17:22 Active EKG (ED ONLY) *Do not use* NOW Care 09/24/24 12:33 Completed EKG (ED ONLY) *Do not use* NOW Care 09/24/24 12:33 Completed In and Out Catheter X1 Care 09/24/24 13:[address] chest abdomen pelvis w Stat Exams 09/24/24 17:[address] head/brain wo con Stat Exams 09/24/24 12:33 Completed EKG (ED Only) Stat Exams 09/24/24 12:33 Draft EKG (ED Only) Stat Exams 09/24/24 12:33 Ordered XR chest 1V Stat Exams 09/24/24 12:33 Completed Blood Culture (Lab) Stat Lab 09/24/24 12:40 Ordered CBC Stat Lab 09/24/24 12:40 Completed CMP [Comprehensive Metabolic Panel] Stat Lab 09/24/24 12:40 Completed Lactate (Lactic Acid) Stat Lab 09/24/24 12:40 Completed Partial Thromboplastin Time Stat Lab 09/24/24 12:40 Completed Procalcitonin Stat Lab 09/24/24 12:40 Completed Prothrombin Time with INR Stat Lab 09/24/24 12:40 Completed Troponin I Stat Lab 09/24/24 12:40 Completed Urinalysis Stat Lab 09/24/24 16:27 Completed LORazepam [Ativan Inj] Med 09/24/24 17:22 Discontinued 1 mg IVP X1 ONE LORazepam [Ativan Inj] Med 09/24/24 17:23 Discontinued 1 mg IVP X1 ONE Sodium Chloride 0.9% 1000 ml [Ns] 1,000 ml Med 09/24/24 12:31 Discontinued IV 999 mls/hr hydrALAZINE INJ [Apresoline Inj] Med 09/24/24 17:16 Discontinued 10 mg IV X1 ONE Vital Signs Vital signs: Vital Signs Temperature 98.9 F 09/24/24 12:16 Pulse Rate 72 09/24/24 12:16 Respiratory Rate 20 09/24/24 12:16 Blood Pressure 175/106 H 09/24/24 12:16 Pulse Oximetry (%) 95 09/24/24 12:16 Oxygen Delivery Method Room Air 09/24/24 12:16 SpO2 95% on room air, patient is not hypoxic Altered Mental Status MDM Narrative MDM Narrative:: Mr. Lee presents to the emergency department for persistent altered mental status with nonfocal encounter exam. He is nonfebrile without signs of overt infection. Although he is 87 years old, family notes that he is GCS of 15 at baseline Patient data External records reviewed:: [facility] previous records Clinical information provided by:: patient Social determinants that could affect healthcare access:: none Patient has the following chronic illnesses:: Hypertension How is presenting disease/condition affected by chronic disease/condition?: uneffected by Evaluation data The following diagnostics were reviewed and interpreted by me:: lab results and radiology exam(s) Lab and/or radiology exams considered but not ordered:: Workup in progress Interpretation Summary: Workup in progress Medications / Prescriptions Medications or Prescriptions considered but not ordered:: Workup in progress Medication administrations:: Medication Administration History Discontinued Medications Hydralazine HCl (Hydralazine Inj 20 Mg/Ml Vial) 10 mg IV X1 ONE Stop: 09/24/24 17:17 Sodium Chloride (Ns) 1,000 mls @ 999 mls/hr IV .Q1H1M ONE Stop: 09/24/24 13:31 Last Infusion: 09/24/24 14:38 Dose: Infused Documented By: Admin: 09/24/24 12:52 Dose: 999 mls/hr Documented By: ASHLEY Lorazepam (Lorazepam 2 Mg/Ml Vial) 1 mg IVP X1 ONE Stop: 09/24/24 17:23 Lorazepam (Lorazepam 2 Mg/Ml Vial) 1 mg IVP X1 ONE Stop: 09/24/24 17:24 Above Consultations Consultation(s) initiated? (list below): No Diagnosis Differential diagnosis altered mental status: alcoholic intoxication, altered mental status, delirium, dementia and hypoglycemia Most likely diagnosis given after review of the tests above:: Workup in progress Admission Indicated Admission indicated?: not indicated Explain why admission is indicated or not indicated:: Patient signed out to oncoming provider, Dr. Cortez, pending laboratory and CT results and final disposition Admission Request Was there a request for admission?: No Disposition Plan Disposition Plan: other (specify) (Signed out to oncoming provider in stable condition) Discharge Plan Prescriptions/Referrals Prescriptions/Med Rec: No Action finasteride [Proscar] 5 MG tablet 5 mg PO QDAY Qty: 0 tamsulosin [Flomax] 0.4 mg capsule 0.4 mg PO BID Qty: 0 levothyroxine 112 mcg tablet 112 mcg PO DAILY Patient Comments: TAKE 1 TABLET BY MOUTH EVERY DAY aspirin 81 mg Tablet 81 mg PO QDAY polyethylene glycol 3350 [Miralax] 17 gram/dose Powder 4 g PO QDAY quetiapine 25 mg Tablet 25 mg PO HS 30 Days Qty: 30 0RF amlodipine 5 mg tablet 5 mg PO QDAY 30 Days Qty: 30 0RF Referrals: Brandt Burris MD [Primary Care Provider] - In 1 week Problem List Clinical Impression: AMS (altered mental status) Patient/Caregiver Discharge Instructions Print Language: [place]is[place]
[2024-09-24 16:30] LABS: Collection Type, Urine Catheter; Squamous Epithelial Cell,Urine 0 /hpf (0-5)
[2024-09-24 16:58] LABS: Bilirubin,Urine Negative (Negative); Blood,Urine Trace (Negative); Clarity,Urine Clear (Clear/Hazy); Color,Urine Lt-Yellow (Lt Yel-Yel); Glucose, Urine Negative (Negative); Ketones,Urine Negative (Negative); Leukocyte Esterase,Urine Negative (Negative); Nitrite,Urine Negative (Negative); PH,Urine 6.5 (5.0-7.0); Protein,Urine Trace (Neg - Trace); RBC,Urine 3 /hpf (0-3); Specific Gravity,Urine 1.013 (1.001-1.035); Urobilinogen,Urine Negative mg/dL (0.0-1.0); WBC,Urine 1 /hpf (0-5)
[2024-09-24] MEDS: LORazepam 2 MG/ML VIAL 1 MG IVP (17:58)
[2024-09-24 18:09] LABS: Alcohol, Blood Medical < 10.0 mg/dL (0-10.0)
--- NOTE | 2024-09-24 18:13 | EDNOTE_ITS ---
Emergency Room Addendum Addendum Narrative: 1800: Care assumed from Dr. Hightower, the previous shift emergency physician. Past medical, surgical, social and family history reviewed. Vitals and home medications reviewed. Results and treatment plan discussed. I will assume the care of the patient at this time and will follow the patient, pending CT chest abdomen pelvis. Please refer to the emergency department record for history and examination from initial visit. Blood alcohol and UDS are negative. 2030: Discussed case with [the resident physician, attending Dr. Araujo] from Hospitalist service regarding admission. Discussed patients ED course, exam findings, labs, and radiology results. The Hospitalist [agrees] to accept the patient for admission. Diagnoses: right middle lobe pneumonia, renal insufficiency, altered mental status RADIOLOGY RESULTS: [facility] Report Signed Patient: MONI HINKLE. Record#: [id number] Birthdate: 1940 Age/Sex: 84 / M Location: [facility] Attending Dr: Ordering Physician: Abrahan Cortez MD Date of Service: 09/24/24 Procedure(s): CT chest abdomen pelvis wo Accession Number(s): [id number] cc: Alfie Sung MD; Abrahan Cortez MD; Brandt Burris MD~ Examination: CT chest, without intravenous contrast. CT abdomen, without intravenous contrast. CT pelvis, without intravenous contrast. 2-D sagittal and coronal reconstructions. 3-D reconstructions. Exam date and time: September 24, 2024 1858 hrs. Comparison September 11, 2024 Indications::Altered mental status today, renal insufficiency CTDI vol (mgy) 7.92 DLP (MGycm)685 Technique: Multiple CT images, 3.0 mm slice thickness, obtained chest, abdomen, pelvis, with the high-resolution 64 slice scanner.. Sagittal and coronal 2-D reconstructions are obtained. 3-D reconstructions Low dose protocols were performed. One or more of the following dose reduction techniques were used; automated exposure control, adjustment of the mA and/or KV according to patient size, use of iterative reconstruction technique. Findings: AP dimension ascending thoracic aorta 4.5 cm Heavy calcification left anterior descending coronary artery No paratracheal tracheobronchial or bronchopulmonary adenopathy Right middle lobe opacity most consistent with pneumonia No pulmonary edema Small low-density liver lesions most consistent with cysts No biliary tract dilatation Spleen is not enlarged No pancreatic mass 2 mm upper pole nonobstructing left renal calculus coronal image 1:15 Aorto iliac endoluminal stent, transverse dimension infrarenal abdominal aorta 6.7 cm Left ileostomy site with herniation of small bowel loops and colon through the ostomy site, small bowel loops are dilated at the ostomy site axial image 234 Urinary bladder intact Minimal density in the urinary bladder axial image 303 which may represent small calculi Transverse prostate dimension 4.7 cm Severe osteopenia Again noted severe subacute compression fracture T11, chronic osteoporotic compression mild L1 Hips appear intact There is prominent patient motion at the level of the proximal right femoral shaft Impression: Ascending thoracic aortic aneurysm dilatation 4.5 cm Right middle lobe opacity most consistent with pneumonia, follow-up chest imaging recommended to document clearing Infrarenal abdominal aortic aneurysm transverse dimension 6.7 cm with aorto iliac endoluminal stent 2 mm nonobstructing left renal calculus Small bowel loops and colon present through the patient's left abdominal wall ostomy site, small bowel loops at the ostomy site are dilated, early incarcerated small bowel loops not excluded, recommend surgical consultation Tiny hyperdensities in the urinary bladder which may represent tiny bladder calculi Severe subacute compression fracture T11 again noted Dictated By: Alfie Sung MD Signed By: <Electronically signed by Alfie Sung MD in [place]> 09/24/242006
--- NOTE | 2024-09-24 18:35 | XR_ITS ---
Examination: CT chest, without intravenous contrast. CT abdomen, without intravenous contrast. CT pelvis, without intravenous contrast. 2-D sagittal and coronal reconstructions. 3-D reconstructions. Exam date and time: September 24, 2024 1858 hrs. Comparison September 11, 2024 Indications::Altered mental status today, renal insufficiency CTDI vol (mgy) 7.92 DLP (MGycm)685 Technique: Multiple CT images, 3.0 mm slice thickness, obtained chest, abdomen, pelvis, with the high-resolution 64 slice scanner.. Sagittal and coronal 2-D reconstructions are obtained. 3-D reconstructions Low dose protocols were performed. One or more of the following dose reduction techniques were used; automated exposure control, adjustment of the mA and/or KV according to patient size, use of iterative reconstruction technique. Findings: AP dimension ascending thoracic aorta 4.5 cm Heavy calcification left anterior descending coronary artery No paratracheal tracheobronchial or bronchopulmonary adenopathy Right middle lobe opacity most consistent with pneumonia No pulmonary edema Small low-density liver lesions most consistent with cysts No biliary tract dilatation Spleen is not enlarged No pancreatic mass 2 mm upper pole nonobstructing left renal calculus coronal image 1:15 Aorto iliac endoluminal stent, transverse dimension infrarenal abdominal aorta 6.7 cm Left ileostomy site with herniation of small bowel loops and colon through the ostomy site, small bowel loops are dilated at the ostomy site axial image 234 Urinary bladder intact Minimal density in the urinary bladder axial image 303 which may represent small calculi Transverse prostate dimension 4.7 cm Severe osteopenia Again noted severe subacute compression fracture T11, chronic osteoporotic compression mild L1 Hips appear intact There is prominent patient motion at the level of the proximal right femoral shaft Impression: Ascending thoracic aortic aneurysm dilatation 4.5 cm Right middle lobe opacity most consistent with pneumonia, follow-up chest imaging recommended to document clearing Infrarenal abdominal aortic aneurysm transverse dimension 6.7 cm with aorto iliac endoluminal stent 2 mm nonobstructing left renal calculus Small bowel loops and colon present through the patient's left abdominal wall ostomy site, small bowel loops at the ostomy site are dilated, early incarcerated small bowel loops not excluded, recommend surgical consultation Tiny hyperdensities in the urinary bladder which may represent tiny bladder calculi Severe subacute compression fracture T11 again noted
[2024-09-24 19:03] LABS: Amphetamine/Methamp Scrn,U Negative (Negative); Barbiturate Screen,Urine Negative (Negative); Benzodiazepines Screen,Urine Negative (Negative); Benzoylecgonine Screen, Ur Negative (Negative); Fentanyl Screen,Urine Negative (Negative); Opiate Screen,Urine Negative (Negative); THC Screen,Urine Negative (Negative)
[2024-09-24 19:10] LABS: Thyroid Stimulating Hormone 3.56 uIU/mL (0.55-4.78)
[2024-09-24] MEDS: AZITHROMYCIN INJ 500 MG in SODIUM CHLORIDE 0.9% 250 ML 250 ML 250 MG IV (20:38)
[2024-09-24] MEDS: cefTRIAXone/D5w 1gm IV premix 50 ML IV (20:39)
[2024-09-24] MEDS: amLODIPine BESYLATE 5 MG TABLET PO (20:47)
--- NOTE | 2024-09-24 21:34 | ESHP_ITS ---
Documentation for date of: 09/24/24 [facility] History of Present Illness Chief complaint: Altered sensorium History of present illness: A 84-year-old male with CKD 3B, hypertension, AAA s/p stent, BPH, hypothyroidism, history of diverticulitis (versus diverticulosis?) s/p ileostomy, history of nephrolithiasis with recent admission in [facility] on 09/12/2024 for acute encephalopathy who was brought to the hospital with chief complaints of worsening altered sensorium. Per patient's daughter, patient is having memory problems since 1 year and is forgetting things, but at baseline patient is able to do his routine activities, shop by himself, does driving and walks by himself and occasionally with the help of a walker. Recently patient was admitted in [facility] on 09/12/2024 for altered sensorium and treated for dehydration following which patient was discharged to rehabilitation facility. Per daughter, since discharge from the hospital patient was having mild delirium but today when she went to visit the patient, he was unable to recognize her and his surroundings for which patient was immediately brought to the ED. Denies fever, chest pain, nausea, vomiting, abdominal pain. Patient was able to respond and follow verbal commands, but not able to remember his daughter's name, not able to recognize his surroundings when asked about the place he said he was in a coffee shop. Stated that he having mild headache but denies abdominal, chest pain, burning micturition, cough but endorsed that he is having phlegm. Daughter stated that she noticed that patient is not taking medication and having poor oral intake at the facility. Noted no focal neurological deficit. ED Course: -Initial vitals were blood pressure 175/106 mmHg, pulse rate 72 bpm, respiratory rate 20/min, temperature 98.9 ?F, SpO2 95% with room air -Labs significant for sodium 134, potassium 3.6, BUN 25, creatinine 1.6, lactate 0.9, procalcitonin 0.16, TSH 3.56. Urine analysis was unremarkable. Tested negative for urine toxicology. Head CT showed no acute hemorrhage of acute infarcts. Chest x-ray did not show any infiltrates. EKG showed normal sinus rhythm. Chest/abdomen/pelvis CT was done showing abdominal aortic diameter 4.5 cm, small bowel loops herniating through ostomy site, infiltrate in the right lung, subacute compression fracture in the T11 -In the ED, patient was given a bolus of 1 L NS, ceftriaxone, azithromycin, lorazepam. -Patient was admitted for acute encephalopathy Past medical history: CKD 3B, hypertension, AAA s/p stent, BPH, hypothyroidism, history of diverticulitis (versus diverticulosis?) s/p ileostomy, history of nephrolithiasis Past surgical history: Ileostomy, aortic aneurysm s/p stenting Social history: Daughter stated that he used to smoke but uncertain of duration, currently not smoking, denies alcohol, other illicit drug abuse. Review of Systems Review of Systems ROS Unobtainable: unobtainable due to mental status Exam Vital Signs Temp Pulse Resp BP Pulse Ox O2 Del Method 98.4 F 69 18 181/91 H 96 Room Air 09/24/24 20:23 09/24/24 20:47 09/24/24 20:23 09/24/24 20:47 09/24/24 20:23 09/24/24 20:23 Narrative Exam General: Awake. Able to respond and follow verbal commands. HEENT: Normocephalic, atraumatic, mucous membranes appear dry. Heart: Regular rate and rhythm, no murmurs. Lungs: Bilateral transmitted sounds are heard on both sides. Abdomen: Soft, nondistended, nontender, positive bowel sounds. ?No guarding or rebound tenderness. Colostomy bag in situ with fecal matter. On left side of abdomen, hernia is noted Neurologic: Able to respond and follow commands appropriately but disoriented to place and person. Extremities: No edema. Skin: No rash or ecchymoses. Results: Labs 09/24/24 12:40 09/24/24 12:40 Labs: Short CBC 09/24/24 Range/Units 12:40 WBC 6.5 (3.8-10.6) Thou/mm3 Hgb 14.4 (13.5-16.0) g/dL Hct 41.3 (41.0-53.0) % Plt Count 169 D (140-440) Thou/mm3 BMP 09/24/24 12:40 Sodium 134 L Potassium 3.6 Chloride 101 Carbon Dioxide 25.4 BUN 25 H Creatinine 1.6 H Glucose 100 Calcium 8.9 Cardiac Enzymes 09/24/24 Range/Units 12:40 Troponin I 0.024 (0.0-0.045) ng/mL Liver Function 09/24/24 Range/Units 12:40 Total Bilirubin 0.4 (0.3-1.2) mg/dL AST < 8 (0-34) U/L ALT 14 (10-49) U/L Alkaline Phosphatase 71 (46-116) U/L Albumin 4.2 (3.4-4.8) gm/dL Urine 09/24/24 Range/Units 16:27 Urine Color Lt-Yellow (Lt Yel-Yel) Urine Clarity Clear (Clear/Hazy) Urine pH 6.5 (5.0-7.0) Ur Specific [place] 1.013 (1.001-1.035) Urine Protein Trace (Neg - Trace) Urine Glucose (UA) Negative (Negative) Quality Measures Quality Measures none Advance care planning discussed with:: patient and child Medications Home Medications and Allergies Home Medications ?Medication ?Instructions ?Recorded ?Confirmed ?Type finasteride 5 mg tablet (Proscar) 5 mg PO QDAY #0 tabs 07/31/15 09/24/24 History tamsulosin 0.4 mg capsule (Flomax) 0.4 mg PO BID #0 caps 12/27/23 09/24/24 History aspirin 81 mg tablet 81 mg PO QDAY 09/12/24 09/24/24 History levothyroxine 112 mcg tablet 112 mcg PO DAILY 09/12/24 09/24/24 History polyethylene glycol 3350 17 4 g PO QDAY 09/14/24 09/24/24 History gram/dose oral powder (Miralax) Allergies Allergy/AdvReac Type Severity Reaction Status Date / Time morphine Allergy Severe Confusion Verified 09/13/24 12:12 corn Allergy Intermediate Abdominal Verified 09/13/24 12:12 Pain peas Allergy Intermediate Abdominal Verified 09/13/24 12:12 Pain Visit Medications Discontinued Medications Amlodipine Besylate (Amlodipine Besylate 5 Mg Tablet) 5 mg PO X1 ONE Stop: 09/24/24 20:26 Last Admin: 09/24/24 20:47 Dose: 5 mg Hydralazine HCl (Hydralazine Inj 20 Mg/Ml Vial) 10 mg IV X1 ONE Stop: 09/24/24 17:17 Last Admin: 09/24/24 17:59 Dose: Not Given Sodium Chloride (Ns) 1,000 mls @ 999 mls/hr IV .Q1H1M ONE Stop: 09/24/24 13:31 Last Infusion: 09/24/24 14:38 Dose: Infused Ceftriaxone Sodium/Dextrose (Rocephin/D5w 1gm Iv Premix) 50 mls @ 100 mls/hr IV X1 ONE Stop: 09/24/24 20:54 Last Infusion: 09/24/24 21:07 Dose: Infused Azithromycin 500 mg/ Sodium (Chloride) 250 mls @ 250 mls/hr IV X1 ONE Stop: 09/24/24 21:24 Last Admin: 09/24/24 20:38 Dose: 250 mls/hr Lorazepam (Lorazepam 2 Mg/Ml Vial) 1 mg IVP X1 ONE Stop: 09/24/24 17:23 Last Admin: 09/24/24 17:58 Dose: 1 mg Lorazepam (Lorazepam 2 Mg/Ml Vial) 1 mg IVP X1 ONE Stop: 09/24/24 17:24 Last Admin: 09/24/24 20:28 Dose: Not Given Assessment & Plan Plan A 84-year-old male with CKD 3B, hypertension, AAA s/p stent, BPH, hypothyroidism, history of diverticulitis (versus diverticulosis?) s/p ileostomy, history of nephrolithiasis with recent admission in [facility] on 09/12/2024 for acute encephalopathy who was brought to the hospital with chief complaints of worsening altered sensorium. # Acute encephalopathy # Likely metabolic encephalopathy due to dehydration versus aspiration pneumonia # Possible underlying dementia -Patient was recently admitted in [facility] on 09/12/2024 for for acute encephalopathy and was treated for dehydration -Later discharged to rehab facility from the hospital. -Patient was found to have mild delirium since the hospital discharge but daughter noticed that it worsened today as patient is not unable to recognize her and also stated that he is having poor oral intake. -Denies fever, nausea, vomiting, shortness of breath, increased work of breathing, abdominal pain, burning micturition. -On physical examination, patient appears dehydrated with dry mucous membranes, bilateral transmitted sounds are present due to secretions in the upper respiratory tract. -Vitals at the time of admission showed elevated blood pressure 175/106 mmHg -CBC was unremarkable. CMP showed mild hyponatremia 134, BUN 25, creatinine 1.6. Lactate, Pro-Eduin, troponins, TSH and free T4 are within normal limits. -Urine toxicology was negative and urine analysis was unremarkable. -EKG showed normal sinus rhythm. Chest x-ray showed no infiltrates. Head CT showed no acute hemorrhage or infarct -Chest/abdomen/pelvis CT showed infiltrate in right middle lobe, small bowel loops herniation through the ostomy site, renal calculi, vertebral compression fracture at T11. -Patient received a bolus of NS, ceftriaxone and azithromycin in the ED Plan -Sputum and blood cultures were sent -Started on IV fluids NS(banana bag) -Started on ceftriaxone in view of suspicion of aspiration pneumonia [09/24- -saline nebulizations -Speech evaluation -Started on dysphagia 2 diet -Head and elevation of the bed -DuoNeb inhalations as needed # Acute on CKD stage III, resolving -Baseline creatinine on 07/24/2024 is 1.3 -Creatinine on last admission on 09/11/2024 is 2.3 -Creatinine at the time of admission is 1.6 Plan -Encourage plenty of oral fluids -Avoid nephrotoxic medications and renally dose meds -Continue to monitor renal functions -Urine sodium and creatinine was ordered # History of hypothyroidism -Patient is using levothyroxine 112 mcg -TSH and free T4 are within normal limits during this hospital admission -Resumed home medication #History of abdominal aortic aneurysm S/p aortic stent -Abdominal CT showed Aorto iliac endoluminal stent, transverse dimension infrarenal abdominal aorta 6.7 cm -Thoracic CT showed thoracic aortic aneurysm of 4.5 cm -Follow-up in outpatient setting # History of BPH -Patient is able to pass urine without any difficulty as of now -Resumed home tamsulosin and finasteride # History of diverticulosis # S/p colostomy with bag in situ -Per patient's daughter, patient was initially suspected to have colon cancer for which partial resection of colon was done -Later patient was found to have diverticulosis without any colon cancer -Since then patient is with colostomy bag -Colostomy bag in situ with fecal matter inside # Possible dementia -Per patient's daughter, patient is having poor memory that is worsening over last 1 year -Recommended to follow-up in outpatient basis with neurologist Hospital Maintenance: Dispo: medsurg DVT ppx: Heparin GI ppx:protonix Diet: Dysphagia 2, speech evaluation is ordered and change diet accordingly IV lines: Peripheral Code status: Full code Patient plan of care was discussed with the attending physician, Dr. Osmar Coleman, PGY1 Attending Provider Attestation/Addendum I discussed with and supervised the resident physician who took care of this patient. I agree with the assessment and plan as above. Patient was examined in room 370. Briefly the patient is an 84-year-old male with hypertension, abdominal aortic aneurysm status post stent, chronic kidney disease, hypothyroidism, reported colon cancer with history of bowel resection end ileostomy. The patient was brought in because of lethargy and altered mental status. He has BPH, possible urinary retention. Bladder scan was ordered. Patient was started on IV antibiotics by housestaff for possible aspiration pneumonia.. Pending culture results. He is currently on wrist restraint.
[2024-09-25] VITALS (12 sets, daily range): BP systolic 117–179; BP diastolic 65–100; PULSE 64–79; RESP 16–20; TEMP 36.2–37.1; O2SAT 90–98; BMI 29.7
[2024-09-25] MEDS: ALBUTEROL/IPRATROPIUM (Duoneb) RT SOL 3 ML NEBU INH ×2 (00:20→07:11)
[2024-09-25] MEDS: Magnesium Sulfate 2 GM Ivpb 2 GM/50 ML BAG IV (00:55)
[2024-09-25] MEDS: THIAMINE INJ 100 MG/ML VIAL 2 ML IVP (00:55)
[2024-09-25] MEDS: SODIUM CHLORIDE 0.9% 1000 ML 1,000 ML 100 ML IV (01:18)
[2024-09-25] MEDS: FOLIC ACID INJ 1 MG/0.2 ML IVP (01:19)
[2024-09-25] MEDS: LEVOTHYROXINE SODIUM 112 MCG TABLET PO (05:37)
[2024-09-25 05:58] LABS: Basophils % (Auto) 0 % (0-2.5); Eosinophils # (Auto) 0.1 Thou/mm3 (0.0-0.5); Eosinophils % (Auto) 1 % (0-10); Hematocrit 39.7 % (41.0-53.0); Hemoglobin 13.5 g/dL (13.5-16.0); Immature Granulocytes % (Auto) 0 % (0-0); Immature Granulocytes Auto 0.02 Thou/mm3 (0.00-0.00); Lymphocytes # (Auto) 1.2 Thou/mm3 (1.0-4.8); Lymphocytes % (Auto) 19 % (10-50); Mean Corpuscular Hemoglobin 30.8 pg (25.0-35.0); Mean Corpuscular Volume 90 fL (80-100); Monocytes # (Auto) 0.8 Thou/mm3 (0.0-0.8); Monocytes % (Auto) 13 % (0-12); Neutrophils # (Auto) 4.3 Thou/mm3 (1.8-7.7); Neutrophils % (Auto) 67 % (37-80); Nucleated Red Blood Cell % 0 /100 WBC (0); Platelet Count 165 Thou/mm3 (140-440); RDW Standard Deviation 44.9 fL (35.1-43.9); Red Blood Count 4.39 Miln/mm3 (4.50-5.90); White Blood Count 6.4 Thou/mm3 (3.8-10.6)
[2024-09-25 06:57] LABS: Alanine Aminotransferase 12 U/L (10-49); Albumin/Globulin Ratio 1.4 (1.2-2.2); Alkaline Phosphatase 66 U/L (46-116); Anion Gap 10 (7-16); Aspartate Amino Transferase 16 U/L (0-34); BUN/Creatinine Ratio 14 Ratio (12-20); Bilirubin,Total 0.4 mg/dL (0.3-1.2); Blood Urea Nitrogen 20 mg/dL (9-23); Calcium 8.7 mg/dL (8.3-10.6); Calcium (Corrected) 8.7 mg/dL (8.5-10.1); Carbon Dioxide 23.5 mMol/L (20.0-31.0); Chloride 103 mMol/L (98-107); Creatinine (Component) 1.4 mg/dL (0.6-1.3); Estimated Creatinine Clearance 45.2 mL/min (>60); Globulin 2.8 gm/dL (2.3-3.5); Glucose 104 mg/dL (74-106); Magnesium 2.2 mg/dL (1.6-2.6); Osmolality,Calculated 274 (275-295); Phosphorous 2.8 mg/dL (2.4-5.1); Potassium 3.2 mMol/L (3.4-5.1); Sodium 136 mMol/L (136-145); Total Protein 6.8 gm/dL (5.7-8.2); eGFR 50 See Note
--- NOTE | 2024-09-25 09:11 | PC.NURSE ---
md dr. chavis at bedside stated to hold meds for now till patient is more alert
--- NOTE | 2024-09-25 09:42 | PC.SS ---
Initial assessment: This is 84 year-old male who presented to the hospital for AMS from [facility]. COMMUTATOR UNDERCUTTER made telephone contact with Victoria Hayes, the patient's POA as the patient is altered. Victoria confirmed patient's demographics and reports he came from [facility]. Victoria reports patient uses a walker and canes to ambulate. Patient requires assistance with completing ADLs. Patient is currently receiving care from Dr. Burris. Patient utilizes [facility] pharmacy on [place] for prescription medications. Victoria informs she would like patient to discharge to a different SNF, however she is aware that the patient prefers [facility] as he likes it there. Provided Victoria with list of local SNF's to research. Patient will need transportation at time of discharge. D/c plan; SNF Next of kin; Friend, Victoria Hayes
--- NOTE | 2024-09-25 09:48 | PC.SS ---
Addendum entered by Elif Maxwell 09/26/24 11:30: SS attempted to get a hold of Kristin from [facility], no answer. VM left for call back. Addendum entered by ELLIOT Pelayo 09/25/24 15:39: Received call from Patient's POA, Victoria Hayes, she wants to select [facility] as preferred SNF. Attempted contact with admissions at , however they informed they are off for the day. Sent message to them via [employer]. Addendum entered by ELLIOT Pelaoy 09/25/24 10:19: SNF inquiry sent via [employer] platform. Original Note: SS follow up: spoke with Beti at [facility]. She informed that she will hold a bed for the patient. Informed her patient's POA wanted to research other facilities, Beti is aware.
--- NOTE | 2024-09-25 10:03 | PCS.ST ---
Swallow Evaluation completed. Continue current diet until more consistently alert. ST will follow up
[2024-09-25] MEDS: PANTOPRAZOLE INJ 40 MG VIAL IVP (10:53)
[2024-09-25] MEDS: HEPARIN SOD INJ 5000 UNIT/ML VIAL SC ×2 (10:55→20:20)
[2024-09-25] MEDS: ASPIRIN EC 81 MG TABEC PO (10:58)
[2024-09-25] MEDS: amLODIPine BESYLATE 5 MG TABLET PO (10:58)
[2024-09-25] MEDS: FINASTERIDE 5 MG TABLET PO (10:58)
[2024-09-25] MEDS: TAMSULOSIN HCL 0.4 MG CAPSULE PO ×2 (10:59→20:20)
[2024-09-25] MEDS: POTASSIUM CHLORIDE 20 mEq TABCR 40 MEQ PO (11:06)
[2024-09-25] MEDS: AMPICILLIN/SULBAC INJ 3 GM in SODIUM CHLORIDE 0.9% (P) 100 ML IV ×3 (13:12→23:46)
[2024-09-25] MEDS: hydrALAZINE INJ 20 MG/ML VIAL 10 MG IVP ×2 (13:13→19:49)
--- NOTE | 2024-09-25 14:04 | ESPR_ITS ---
<Statement entered by Vanessa Garcia MD - 10/01/24 07:08> I reviewed above note and agree with findings and plans. I have also personally examined the patient with medicine team and went over assessment and plan with medical team including technical internship and resident physician. Documentation for date of: 09/25/24 Subjective Subjective Interval history: Patient admitted last night for acute encephalopathy, this morning patient less confused, oriented to self and date of only. Speech pathology to evaluate patient as he is high risk for aspiration Exam Vital Signs Temp Pulse Resp BP Pulse Ox O2 Del Method 98.3 F 76 16 179/100 H 93 L Room Air 09/25/24 12:00 09/25/24 13:13 09/25/24 12:00 09/25/24 13:13 09/25/24 12:00 09/25/24 12:00 Objective Labs 09/25/24 05:04 09/25/24 05:04 Labs: Laboratory Results - last 24 hr 09/24/24 09/24/24 09/25/24 12:45 16:27 05:04 WBC 6.4 RBC 4.39 L Hgb 13.5 Hct 39.7 L MCV 90 MCH 30.8 MCHC 34.0 RDW Std Deviation 44.9 H Plt Count 165 Neut % (Auto) 67 Lymph % (Auto) 19 [place] % (Auto) 13 H Eos % (Auto) 1 Baso % (Auto) 0 Neut # (Auto) 4.3 Lymph # (Auto) 1.2 [place] # (Auto) 0.8 Eos # (Auto) 0.1 Baso # (Auto) 0.0 Immature Gran # (Auto) 0.02 H Absolute Nucleated RBC 0.00 Immature Gran % 0 Nucleated RBC % 0 Sodium 136 Potassium 3.2 L Chloride 103 Carbon Dioxide 23.5 Anion Gap 10 BUN 20 Creatinine 1.4 H Estim Creat Clear Calc 45.2 L eGFR 50 L BUN/Creatinine Ratio 14 Glucose 104 Calculated Osmolality 274 L Calcium 8.7 Corrected Calcium 8.7 Phosphorus 2.8 Magnesium 2.2 Total Bilirubin 0.4 AST 16 ALT 12 Alkaline Phosphatase 66 Total Protein 6.8 Albumin 4.0 Globulin 2.8 Albumin/Globulin Ratio 1.4 TSH 3.56 Free T4 1.30 Ur Collection Type Catheter Urine Color Lt-Yellow Urine Clarity Clear Urine pH 6.5 Ur Specific [place] 1.013 Urine Protein Trace Urine Glucose (UA) Negative Urine Ketones Negative Urine Blood Trace Urine Nitrite Negative Urine Bilirubin Negative Urine Urobilinogen (Auto) Negative Ur Leukocyte Esterase Negative Urine RBC 3 Urine WBC 1 Ur Squamous Epith Cells 0 Urine Bacteria None Urine Opiates Screen Negative Urine Fentanyl Screen Negative Ur Barbiturates Screen Negative U Amphetamin/Meth Scrn Negative U Benzodiazepines Scrn Negative U Cocaine Metab Screen Negative U Marijuana (THC) Screen Negative Ethyl Alcohol < 10.0 Quality Measures Quality Measures none Advance care planning discussed with:: patient Assessment & Plan Assessment Current Active Medications: Generic Name Dose Route Start Last Admin Trade Name Freq PRN Reason Stop Dose Admin Acetaminophen 650 mg 09/24/24 21:23 Acetaminophen 325 Mg Tablet PO 10/24/24 21:22 Q6H PRN Fever >101.5 Albuterol/Ipratropium 3 ml 09/25/24 01:00 09/25/24 12:35 Albuterol/Ipratropium (Duoneb) Rt Marizol 3 Ml Nebu INH 10/25/24 00:59 Not Given Q6HRRT RAUDEL Amlodipine Besylate 5 mg 09/25/24 09:00 09/25/24 10:58 Amlodipine Besylate 5 Mg Tablet PO 10/25/24 08:59 5 mg QDAY RAUDEL Administration Aspirin 81 mg 09/25/24 09:00 09/25/24 10:58 Aspirin Ec 81 Mg Tabec PO 10/25/24 08:59 81 mg QDAY RAUDEL Administration Finasteride 5 mg 09/25/24 09:00 09/25/24 10:58 Finasteride 5 Mg Tablet PO 10/25/24 08:59 5 mg QDAY RAUDEL Administration Heparin Sodium (Porcine) 5,000 unit 09/25/24 09:00 09/25/24 10:55 Heparin Sod Inj 5000 Unit/Ml Vial SC 10/09/24 08:59 5,000 unit BID RAUDEL Administration Hydralazine HCl 10 mg 09/25/24 12:06 09/25/24 13:13 Hydralazine Inj 20 Mg/Ml Vial IVP 10/25/24 12:14 10 mg Q6H PRN Administration High Blood Pressure, SBP>160, DBP>90, Hold if HR > 100 Doxycycline Hyclate 100 mg/ 100 mls @ 100 mls/hr 09/25/24 21:00 Sodium Chloride IV 10/02/24 20:59 BID RAUDEL Ampicillin Sodium/Sulbactam 100 mls @ 200 mls/hr 09/25/24 12:00 09/25/24 13:12 Sodium 3 gm/ Sodium Chloride IV 10/02/24 11:59 200 mls/hr Q6HR RAUDEL Administration Levothyroxine Sodium 112 mcg 09/25/24 06:00 09/25/24 05:37 Levothyroxine Sodium 112 Mcg Tablet PO 10/25/24 05:59 112 mcg ACBR RAUDEL Administration Magnesium Hydroxide 30 ml 09/24/24 21:23 Milk Of Magnesia Susp 30 Ml Udc PO 10/24/24 21:22 QDAY PRN CONSTIPATION Protocol Ondansetron HCl 4 mg 09/24/24 21:23 Ondansetron Inj 2 Mg/Ml Inj 2 Ml IV 10/24/24 21:22 Q6H PRN NAUSEA OR VOMITING Protocol Pantoprazole Sodium 40 mg 09/25/24 09:00 09/25/24 10:53 Pantoprazole Inj 40 Mg Vial IVP 10/25/24 08:59 40 mg QDAY RAUDEL Administration Sodium Chloride 4 ml 09/25/24 03:00 09/25/24 12:35 Sodium Cl Rt Marizol 3% 4 Ml Nebu (Non-Formulary) INH 10/25/24 02:59 Not Given Q4HRRT RAUDEL Tamsulosin HCl 0.4 mg 09/25/24 09:00 09/25/24 10:59 Tamsulosin Hcl 0.4 Mg Capsule PO 10/25/24 08:59 0.4 mg BID RAUDEL Administration Plan 84-year-old male with CKD 3B, hypertension, AAA s/p stent, BPH, hypothyroidism, history of diverticulitis s/p ileostomy, history of nephrolithiasis with recent admission in [facility] on 09/12/2024 for acute encephalopathy who was brought to the hospital with chief complaints of worsening altered sensorium. # Acute encephalopathy -Patient was recently admitted in [facility] on 09/12/2024 for for acute encephalopathy and was treated for dehydration -Suspected underlying dementia, hasn't followed outpatient with neurologist -Acute encephaopathy likely in the setting of pneumonia #Community acquired pneumonia -[id number] -CT chest: Right middle lobe opacity most consistent with pneumonia -Rocephin # History of hypothyroidism -Patient is using levothyroxine 112 mcg -TSH and free T4 are within normal limits during this hospital admission -Resumed home medication #History of abdominal aortic aneurysm S/p aortic stent -Abdominal CT showed Aorto iliac endoluminal stent, transverse dimension infrarenal abdominal aorta 6.7 cm -Thoracic CT showed thoracic aortic aneurysm of 4.5 cm -Follow-up in outpatient setting # History of BPH -Patient is able to pass urine without any difficulty as of now -Resumed home tamsulosin and finasteride # History of diverticulosis # S/p colostomy with bag in situ -Per patient's daughter, patient was initially suspected to have colon cancer for which partial resection of colon was done -Later patient was found to have diverticulosis without any colon cancer -Since then patient is with colostomy bag -Colostomy bag in situ with fecal matter inside Hospital Maintenance: Dispo: medsurg DVT ppx: Heparin GI ppx:protonix Diet: Dysphagia 2, speech evaluation is ordered and change diet accordingly IV lines: Peripheral Code status: Full code Patient's care discussed with attending physician, Dr Jose Ambrose MD PGY2
--- NOTE | 2024-09-25 19:00 | PC.NURSE ---
notified dr faustin of pt continuing to pull at lines and ostomy despite education. pt gcs 14, pt on bilateral wrist restraints and in need of order renewal. acknowledged. states she will renew order
[2024-09-25] MEDS: DOXYCYCLINE INJ 100 MG in SODIUM CHLORIDE 0.9% (P) 100 ML IV (20:20)
[2024-09-26] VITALS (11 sets, daily range): BP systolic 148–168; BP diastolic 72–97; PULSE 68–87; RESP 18–20; TEMP 36.3–37.2; O2SAT 92–100
[2024-09-26] MEDS: hydrALAZINE INJ 20 MG/ML VIAL 10 MG IVP (03:54)
[2024-09-26] MEDS: LEVOTHYROXINE SODIUM 112 MCG TABLET PO (05:01)
[2024-09-26] MEDS: AMPICILLIN/SULBAC INJ 3 GM in SODIUM CHLORIDE 0.9% (P) 100 ML IV ×3 (05:01→17:32)
[2024-09-26 05:48] LABS: Basophils % (Auto) 0 % (0-2.5); Eosinophils % (Auto) 0 % (0-10); Hematocrit 40.7 % (41.0-53.0); Hemoglobin 13.9 g/dL (13.5-16.0); Immature Granulocytes % (Auto) 0 % (0-0); Immature Granulocytes Auto 0.03 Thou/mm3 (0.00-0.00); Lymphocytes # (Auto) 1.3 Thou/mm3 (1.0-4.8); Lymphocytes % (Auto) 18 % (10-50); Mean Corpuscular HGB Conc 34.2 g/dl (31.0-37.0); Mean Corpuscular Hemoglobin 30.4 pg (25.0-35.0); Mean Corpuscular Volume 89 fL (80-100); Monocytes # (Auto) 0.7 Thou/mm3 (0.0-0.8); Monocytes % (Auto) 10 % (0-12); Neutrophils % (Auto) 71 % (37-80); Nucleated Red Blood Cell % 0 /100 WBC (0); Platelet Count 170 Thou/mm3 (140-440); Red Blood Count 4.57 Miln/mm3 (4.50-5.90)
[2024-09-26 05:56] LABS: Anion Gap 11 (7-16); BUN/Creatinine Ratio 14 Ratio (12-20); Blood Urea Nitrogen 19 mg/dL (9-23); Calcium 9.1 mg/dL (8.3-10.6); Carbon Dioxide 22.3 mMol/L (20.0-31.0); Chloride 104 mMol/L (98-107); Creatinine (Component) 1.4 mg/dL (0.6-1.3); Estimated Creatinine Clearance 45.2 mL/min (>60); Glucose 118 mg/dL (74-106); Osmolality,Calculated 277 (275-295); Potassium 3.5 mMol/L (3.4-5.1); Sodium 137 mMol/L (136-145); eGFR 50 See Note
[2024-09-26] MEDS: ALBUTEROL/IPRATROPIUM (Duoneb) RT SOL 3 ML NEBU INH ×3 (07:20→19:46)
[2024-09-26] MEDS: DOXYCYCLINE INJ 100 MG in SODIUM CHLORIDE 0.9% (P) 100 ML IV ×2 (09:39→20:24)
[2024-09-26] MEDS: FINASTERIDE 5 MG TABLET PO (09:39)
[2024-09-26] MEDS: HEPARIN SOD INJ 5000 UNIT/ML VIAL SC ×2 (09:40→20:26)
[2024-09-26] MEDS: TAMSULOSIN HCL 0.4 MG CAPSULE PO (09:40)
[2024-09-26] MEDS: PANTOPRAZOLE INJ 40 MG VIAL IVP (09:41)
[2024-09-26] MEDS: ASPIRIN EC 81 MG TABEC PO (09:41)
[2024-09-26] MEDS: amLODIPine BESYLATE 5 MG TABLET PO (09:41)
[2024-09-26] MEDS: MOXIFLOXACIN OP SOL 0.5% 3 ML BTL 1 DROP BOTH EYES ×3 (10:44→21:18)
--- NOTE | 2024-09-26 11:00 | PC.SS ---
SS attempted to reach Kristin from and was unsuccessful. VM left and message lefr for a return call in regards to accepting pt.
--- NOTE | 2024-09-26 11:15 | PC.SS ---
SS spoke to Beti at [facility] in regards to taking pt back and doing a lateral transfer, Beti stated that they have the pts bed on a hold and yes they can do a lateral transfer. SS spoke to Victoria pts POA and informed her of SS inability to get in touch with [facility]. SS explained the lateral transfer from facility to facility. Victoria stated NO, she does not want the pt to go back to [facility]. SS explained the pt is ready for DC, IMM provided, Victoria stated she wants to speak to the DC doctor as she has questions in regards to his PNA. SS provided # for Dr. Ambrose to call and update Victoria on pts status. Victoria stated she is coming to bedside and will speak to SS whens he arrives.
--- NOTE | 2024-09-26 12:54 | ESDS_ITS ---
<Statement entered by Vanessa Garcia MD - 10/02/24 14:14> I reviewed above note and agree with findings and plans. I have also personally examined the patient with medicine team and went over assessment and plan with medical team including internet security specialist and resident physician. Planned Discharge Date 09/26/24 DS: Providers Provider Date of admission: 09/24/24 21:20 Primary care physician: Brandt Burris MD Admitting Provider: Garry Prasad MD Attending Provider on Admission: Garry Prasad MD Consults: 09/24/24 23:38 Referral Speech Therapy Routine Comment: Attending Provider on DC: Shanta Ambrose MD Discharging Provider: Shanta Ambrose MD DS: Diagnosis Problem List Completed Was Problem List Reviewed/Reconciled?: Yes Hospital Course Hospital Course Hospital course: 84-year-old male with CKD 3B, hypertension, AAA s/p stent, BPH, hypothyroidism, history of diverticulitis s/p ileostomy, history of nephrolithiasis with recent admission in [facility] on 09/12/2024 for acute encephalopathy who was brought to the hospital with a chief complaint of disorientation. Per patient's daughter, patient has been having progressively worsening memory problemas for aproximately 1 year. Recently patient was admitted in [facility] on 09/12/2024 for acute encephalopathy and treated for dehydration following which patient was discharged to rehabilitation facility. Per daughter, since discharge from the hospital patient was having mild delirium but on the day of admission when she went to visit the patient, he was unable to recognize her and his surroundings for which patient was immediately brought to the ED. On arrival patient was hypertensive 175/106, Labs significant for sodium 134, potassium 3.6, BUN 25, creatinine 1.6, lactate 0.9, procalcitonin 0.16, TSH 3.56. Urine analysis was unremarkable. Tested negative for urine toxicology. Head CT showed no acute hemorrhage of acute infarcts. Chest x-ray did not show any infiltrates. EKG showed normal sinus rhythm. Chest/abdomen/pelvis CT was done showing right middle lobe opacity most consistent with pneumonia. Patient was admitted for management of acute encephalopathy likely in the setting of pnuemonia. Patient's has progressively improved, was evaluated by speech pathologist who cleared patient for oral intake. This AM patient was awake, oriented to person, and date of , coherently talking. Appeared at baseline. Patient has remained afebrile, WBC within normal limits, there's productive cough, remaining vitals within normal limits saturating adequately on room air. Patient safe and stable for discharge on PO antibiotics. #Acute encephalopathy #Acute delirium #CAP #Bacterial conjunctivitis Patient's care discussed with attending physician, Dr Jose Ambrose MD PGY2 Time Spent with Patient Time attestation: Total time spent providing and/or coordinating discharge services: Exam Vital Signs Temp Pulse Resp BP Pulse Ox O2 Del Method 97.7 F 78 18 168/87 H 93 L Room Air 09/26/24 12:09/26/24 12:09/26/24 12:09/26/24 12:09/26/24 12:09/26/24 12:00 Narrative Exam GENERAL: Elderly man, awake and oriented to person and date of , in no acute distress. HEENT: Normocephalic, atraumatic and nontender.? Pupils are equal and reactive to light and accommodation.? Oral mucosa moist. NECK: Supple without adenopathy. Trachea midline. Nontender, carotid pulse 2+ bilaterally without bruits, no JVD.? CHEST: Heart rate and rythm normal, no murmurs, gallops auscultated. S1 & 2 normal insensity. Nontender on palpation, no deformity and no crepitus. LUNGS: Lung sounds are clear.? No wheezing, rales or ronchi.? No intercostal subcostal retraction. Room air ABDOMEN: Soft,symmetric , nontender, no guarding or rebound tenderness. ? Bowel sounds are normoactive in all 4 quadrants. EXTREMITIES: Nontender.? No pitting edema.? No cyanosis.? Patient is able to move all 4 extremities. SKIN: No rashes noted. NEURO:? Cranial nerves intact.? There is no focalization.? GCS is 15. Discharge Plan Plan Patient Disposition: Xfer Skilled Nsg Fac (SNF) Patient condition on transfer: Stable Care Plan Goals: -Complete antibiotic course for 5 more days -Use antibiotic drops for 5 days for conjunctivitis Prescriptions/Referrals Prescriptions/Med Rec: New moxifloxacin 0.5 % drops, viscous 1 drp ophthalmic (eye) TID 5 Days Qty: 3 0RF cefuroxime axetil 500 mg tablet 500 mg PO BID 5 Days Qty: 10 0RF Continued finasteride [Proscar] 5 MG tablet 5 mg PO QDAY Qty: 0 tamsulosin [Flomax] 0.4 mg capsule 0.4 mg PO BID Qty: 0 levothyroxine 112 mcg tablet 112 mcg PO DAILY Patient Comments: TAKE 1 TABLET BY MOUTH EVERY DAY aspirin 81 mg Tablet 81 mg PO QDAY polyethylene glycol 3350 [Miralax] 17 gram/dose Powder 4 g PO QDAY amlodipine 5 mg tablet 5 mg PO QDAY 30 Days Qty: 30 0RF metoprolol succinate 25 mg tablet extended release 24 hr PO Patient Comments: TAKE 1 TABLET BY MOUTH EVERY DAY Held quetiapine 25 mg Tablet 25 mg PO HS 30 Days Qty: 30 0RF Hold Instructions: unable to verify Referrals: Brandt Burris MD [Primary Care Provider] - Patient/Caregiver Discharge Instructions Print Language: Thai Stand Alone Forms: Arlen Award Info., Patient Portal Info Letter Discharge Order Discharge Orders: Discharge (Routine); Ordered 09/26/24 Ordered By: Shanta Ambrose Quality Discharge Quality Measures VTE prophylaxis
--- NOTE | 2024-09-26 13:14 | PC.SS ---
Addendum entered by Elif Maxwell 09/26/24 13:28: SS went to update Victoria, per Victoria she is appealing the DC, SS will remain on stand by to follow upon appeal. Original Note: SS met with pt and Victoria-KAREN at bedside. Victoria is very upset a the doctors decision to DC pt, per Victoria pt is choking on his food and is not at baseline and confused. Victoria requested to speak to the Team at bedside. Victoria had a phone conversation with Dr. Ambrose just recently but wants in person conversation. SS called Dr. Ambrose but she stated she is with pts at the moment and she can meet with Victoria later.
--- NOTE | 2024-09-26 13:55 | PC.SS ---
SS met with Victoria and Dr. Ambrose at bedside, Victoria stated she appealed the DC provided SS with #[id number], SS explained process to Victoria. Pt will stay in hospital until appeal is reviewed and resulted.
--- NOTE | 2024-09-26 14:56 | PC.SS ---
Appeal submitted to [employer]
[2024-09-27] VITALS (10 sets, daily range): BP systolic 135–157; BP diastolic 70–86; PULSE 62–83; RESP 16–20; TEMP 36.1–37.1; O2SAT 90–99
[2024-09-27] MEDS: AMPICILLIN/SULBAC INJ 3 GM in SODIUM CHLORIDE 0.9% (P) 100 ML IV ×2 (00:16→05:15)
[2024-09-27] MEDS: ALBUTEROL/IPRATROPIUM (Duoneb) RT SOL 3 ML NEBU INH ×3 (01:57→13:33)
[2024-09-27] MEDS: LEVOTHYROXINE SODIUM 112 MCG TABLET PO (05:15)
[2024-09-27] MEDS: MOXIFLOXACIN OP SOL 0.5% 3 ML BTL 1 DROP BOTH EYES ×2 (05:22→14:36)
[2024-09-27 05:55] LABS: Basophils % (Auto) 0 % (0-2.5); Eosinophils # (Auto) 0.1 Thou/mm3 (0.0-0.5); Eosinophils % (Auto) 2 % (0-10); Hematocrit 38.7 % (41.0-53.0); Hemoglobin 13.1 g/dL (13.5-16.0); Immature Granulocytes % (Auto) 1 % (0-0); Immature Granulocytes Auto 0.04 Thou/mm3 (0.00-0.00); Lymphocytes % (Auto) 13 % (10-50); Mean Corpuscular HGB Conc 33.9 g/dl (31.0-37.0); Mean Corpuscular Hemoglobin 30.6 pg (25.0-35.0); Mean Corpuscular Volume 90 fL (80-100); Monocytes # (Auto) 0.7 Thou/mm3 (0.0-0.8); Monocytes % (Auto) 10 % (0-12); Neutrophils # (Auto) 5.7 Thou/mm3 (1.8-7.7); Neutrophils % (Auto) 75 % (37-80); Nucleated Red Blood Cell % 0 /100 WBC (0); Platelet Count 167 Thou/mm3 (140-440); RDW Standard Deviation 45.4 fL (35.1-43.9); Red Blood Count 4.28 Miln/mm3 (4.50-5.90); White Blood Count 7.6 Thou/mm3 (3.8-10.6)
[2024-09-27 06:18] LABS: Anion Gap 10 (7-16); BUN/Creatinine Ratio 13 Ratio (12-20); Blood Urea Nitrogen 20 mg/dL (9-23); Carbon Dioxide 24.5 mMol/L (20.0-31.0); Chloride 106 mMol/L (98-107); Creatinine (Component) 1.6 mg/dL (0.6-1.3); Estimated Creatinine Clearance 39.6 mL/min (>60); Glucose 127 mg/dL (74-106); Osmolality,Calculated 284 (275-295); Potassium 3.6 mMol/L (3.4-5.1); Sodium 140 mMol/L (136-145); eGFR 42 See Note
--- NOTE | 2024-09-27 08:28 | PC.SS ---
Addendum entered by Rosana Dan [facility] 09/27/24 14:12: Amdal ETA 6:45pm. Notified patient's POA Victoria Hayes, [facility] staff Kristin and bed side nurse covering. Addendum entered by Rosana Dan [facility] 09/27/24 11:55: [facility] at 6pm this evening or anytime after. Sent [facility] updated notes and PASRR via [employer]. Contacted [facility] services, provided patient's information, pending ETA. Addendum entered by Rosana Dan [facility] 09/27/24 11:32: Patient's POA is agreeable with the patient discharging to [facility] today. Victoria is aware of financial responsibility for transport. Notifies she is unable to cover transport cost and patient requires gurney transport. Addendum entered by Rosana Dan [facility] 09/27/24 11:28: Spoke with Kristin at [facility] she confirms they are able to accept the patient at their facility. Pending d/c orders. Addendum entered by Rosana Dan [facility] 09/27/24 10:20: Attempted contact with [facility]. Left a message with staff requesting call back from admissions. Addendum entered by Rosana Dan [facility] 09/27/24 10:17: Spoke with patient's POA Victoria Hayes who is aware that the [employer] appeal was denied. Victoria is aware that the patient will need to be discharge before noon on 09/28/24. Victoria is aware we are waiting for [facility] to determine if able to accept the patient at their facility. Addendum entered by Rosana Dan [facility] 09/27/24 10:16: 1016- Case lookup status: [place] Agrees with termination of Hospital services Liability:Beneficiary Liability Starts on 09/28/2024 Patient's appeal was denied. Addendum entered by Rosana Dan [facility] 09/27/24 09:51: Provided an update to patient's POA, Victoria Hayes. Addendum entered by Rosana Dan [facility] 09/27/24 08:33: SS follow up: contacted [facility] and spoke with Kristin Garcia. She informs she will review the patient's insurance to verify if they are able to accept the patient. Original Note: SS follow up: Patient's KAREN Kessler, appealed the hospital discharge yesterday. 0830- Case lookup status is: Physician Review Completed, pending final appeal outcome.
[2024-09-27] MEDS: TAMSULOSIN HCL 0.4 MG CAPSULE PO (09:18)
[2024-09-27] MEDS: ASPIRIN EC 81 MG TABEC PO (09:18)
[2024-09-27] MEDS: DOXYCYCLINE 100 MG TABLET PO (09:19)
[2024-09-27] MEDS: amLODIPine BESYLATE 5 MG TABLET PO (09:19)
[2024-09-27] MEDS: PANTOPRAZOLE INJ 40 MG VIAL IVP (09:20)
[2024-09-27] MEDS: HEPARIN SOD INJ 5000 UNIT/ML VIAL SC (09:20)
[2024-09-27] MEDS: FINASTERIDE 5 MG TABLET PO (09:20)
[2024-09-27] MEDS: SODIUM CHLORIDE 0.9% 500 ML 500 ML 125 ML IV (09:30)
[2024-09-27] MEDS: AMOXICILLIN/POT CLAV 500 MG TABLET PO (14:38)
--- NOTE | 2024-09-27 15:57 | ESDS_ITS ---
<Statement entered by Vanessa Garcia MD - 10/02/24 14:16> I reviewed above note and agree with findings and plans. I have also personally examined the patient with medicine team and went over assessment and plan with medical team including internal controls specialist and resident physician. Addendum Discharge Addendum Date of report being addended: 09/27/24 Narrative: Patient ready for discharge yesterday, however DC was appealed, insurance denied appeal today. Ready for DC to SNF. Please refer tp DC summary done yesterday. Patient seen and examined this AM, no new complaints, saturating adequately on room air, afebrile, still endorsing productive cough. Patient's care discussed with attending physician, Dr Jose Ambrose MD PGY3
--- NOTE | 2024-09-27 18:20 | PC.NURSE ---
Called [facility] and gave report [phone]. Notified nurse of transport time of 1844.
--- NOTE | 2024-09-27 19:19 | PC.NURSE ---
Pt discharged at 1919. Pt picked up by 2 [facility] staff and will be transported to [facility]. VS stable with no complaints of pain or discomfort. All belongings taken by patient's caregiver.
== END 2024-09-27 19:19 | disposition skilled nursing facility (03) | DRG 70 ==
LOC: SERX 18:25 → SERHOLD 21:59 → S3SX 22:28
PROVIDERS: Emergency Medicine; Student in an Organized Health Care Education/Training Program; Admitting Provider Internal Medicine; Emergency Provider Emergency Medicine; PCP Family Medicine; Visit Provider Internal Medicine
DX: G93.49 Other encephalopathy (principal); J18.9 Pneumonia, unspecified organism; E87.1 Hypo-osmolality and hyponatremia; M48.54XA Collapsed vertebra, not elsewhere classified, thoracic region, initial encounter for fracture; N17.9 Acute kidney failure, unspecified; I12.9 Hypertensive chronic kidney disease with stage 1 through stage 4 chronic kidney disease, or unspecified chronic kidney disease; N18.32 Chronic kidney disease, stage 3b; N40.0 Benign prostatic hyperplasia without lower urinary tract symptoms; E03.9 Hypothyroidism, unspecified; I71.20 Thoracic aortic aneurysm, without rupture, unspecified; H10.89 Other conjunctivitis; I71.21 Aneurysm of the ascending aorta, without rupture; Z87.442 Personal history of urinary calculi; Z90.49 Acquired absence of other specified parts of digestive tract; Z86.79 Personal history of other diseases of the circulatory system; Z87.19 Personal history of other diseases of the digestive system; Z78.1 Physical restraint status; Z87.891 Personal history of nicotine dependence; Z93.2 Ileostomy status; Z79.890 Hormone replacement therapy; Z79.899 Other long term (current) drug therapy; Z79.82 Long term (current) use of aspirin; Z88.5 Allergy status to narcotic agent
CPT/HCPCS: 36415; 70450; 71045; 71250; 74176; 80048; 80053; 80307; 80320; 81001; 82570; 83605; 83735; 84100; 84145; 84300; 84439; 84443; 84484; 85025; 85610; 85730; 87040; 87081; 87205; 87400; 87811; 92526; 92610; 93005; 94640; 94664; 96365; 96368; 99285; A9270; J0295; J0360; J0456; J0696; J1643; J2060; J2470; J3411; J3475; J3490; J7030; J7040; J7050; G0480; J1644